=== PATIENT | female | born 1975 | race Caucasian/White ===

== ENCOUNTER 2020-06-24 11:46 | Outpatient (REF) | payer OTHER, SELFPAY ==
--- NOTE | 2020-06-24 | US_ITS ---
EXAMINATION: US PELVIS ULTRASOUND CLINICAL INFORMATION: Dysmenorrhea. Age 44. LMP 06/10/2020. COMPARISON: None TECHNIQUE: Ultrasound of the pelvis is performed using both transabdominal and transvaginal transducers along with color Doppler. Transvaginal imaging is performed due to inadequate visualization transabdominally. FINDINGS: Uterus: The uterus is anteverted and retroflexed and measures 10.2 x 5.1 x 7.5 cm. The double wall endometrial thickness is normal at 3 mm. The uterus is smooth in contour and has normal myometrial echogenicity. No visible fibroid. Adnexa: Both ovaries are visualized. There is normal color flow to the adnexa. There is no ovarian torsion. There is no pelvic ascites or fluid collection. Right ovary measures 2.0 x 1.8 x 1.2 cm. Volume under 3 mL. Left ovary measures 3.5 x 1.6 x 2.0 cm. There is a dominant follicle within the left ovary measuring 1.9 x 1.5 x 1.0 cm. IMPRESSION: 1. Uterus: Normal in size. No visible fibroid. 2. Adnexa: Dominant follicle on left 1.9 x 1.5 x 1.0 cm. No ascites.
== END 2020-06-24 11:47 | disposition home or self-care (01) ==
LOC: HO.US 11:46
PROVIDERS: PCP Internal Medicine Geriatric Medicine; Visit Provider Advanced Practice Midwife
DX: N94.6 Dysmenorrhea, unspecified (principal)
CPT/HCPCS: 76830; 76856

== ENCOUNTER → 2020-07-12 12:06 | Outpatient (BNVA) | payer OTHER, SELFPAY | PROVIDERS: PCP Internal Medicine Geriatric Medicine; Referring Provider Internal Medicine Geriatric Medicine; Visit Provider Physician Assistant | DX: K62.5 Hemorrhage of anus and rectum (principal) | CPT/HCPCS: 99212 ==

== ENCOUNTER 2020-07-22 14:28 | Emergency (ER) | payer OTHER, SELFPAY ==
[2020-07-22 14:35] VITALS: BP 133/96; PULSE 96; RESP 16; TEMP 37.5; O2SAT 98; BMI 35.2
--- NOTE | 2020-07-22 14:42 | ED_ITS ---
HPI - URI/Sore Throat General Chief Complaint: Upper Respiratory Symptoms Stated Complaint: FLU SYMPTOMS,COUGH,SOB,FEVER,BODYACHES,? COVID Time Seen by Provider: 07/22/20 14:39 History of Present Illness HPI Narrative: Patient complains of fever measured up to 102, body aches, cough, shortness of breath for past 3 days The patient went to an urgent care for a COVID test and was found to have an O2 sat of 93 and was transported by ambulance to the hospital On arrival here she was found to have normal vital signs include including a normal oxygen saturation Related Data Previous Rx's Medication Instructions Recorded miralax See Rx Instructions PO ONCE #238 g 07/12/20 acetaminophen [Tylenol] 650 mg PO Q6H PRN #20 cap 07/22/20 albuterol sulfate 2 puff INHALATION QID PRN #6.7 g 07/22/20 Allergies Allergy/AdvReac Type Severity Reaction Status Date / Time No Known Allergies Allergy Verified 07/22/20 14:55 Review of Systems Review of Systems: Review of systems is positive for cough fever shortness of breath The patient has no chest pain no dizziness no weakness No headache and no stiff neck No abdominal pain nausea or vomiting No rash No weakness no confusion Yes all other systems are reviewed and are negative [facility] Past Medical History Attestation statement: The following information was validated with the patient. [facility] Narrative: No relevant medical history, no alcohol no drugs Source: nursing notes reviewed Medical History (Updated 07/22/20 @ 17:49 by JUAN De La Cruz) Menorrhagia Rectal bleeding Surgical History (Updated 07/12/20 @ 10:12 by Nohemi Criag PA-C) H/O breast augmentation Family History Family History (Updated 07/12/20 @ 10:13 by Nohemi Craig PA-C) Maternal Grandfather Colon cancer Social History Social History Alcohol intake: never Smoking Status: Never smoker Use of substances other than those prescribed or required for medical reasons: No Advance Directives: No Advance Directives Information Provided: Yes Physical Exam Vital Signs: Vital Signs: Last Vital Signs Temp 99.5 F 07/22/20 15:57 Pulse 75 07/22/20 15:57 Resp 16 07/22/20 15:57 BP 128/86 07/22/20 15:57 Pulse Ox 99 07/22/20 15:57 Body Mass Index 35.2 General appearance no acute distress, no respiratory distress, A&O x3, ambulatory Pharynx is clear and well hydrated Eyes no redness no discharge The neck is supple The chest was clear with slightly diminished bilateral symmetrical breath sounds and good air entry The heart no murmur The abdomen soft nontender Extremities full range of motion x4, no swelling, no calf tenderness or leg swelling for Skin no rash Neuro A&O x3, no weakness, gait is normal, speech is normal, cerebellar is normal Course Course Course Narrative: Because of the stated history of a low oxygen saturation at the urgent care her oxygen saturation was checked multiple times including with ambulation and exertion and remain 97-100 however because she has very thick nail Citizen Of [place] there were times when the Sensor lost its proper placement and the numbers would drop way down but when the sense he was put in an appropriate spot they immediately returned to 97-100 O2 saturation remained normal throughout the ER visit as well as a respiratory rate of 16 which did decrease with mild exertion when she walked, but oxygen saturation never dropped Patient remains comfortable at rest and ambulated easily on discharge Chest x-ray was normal and EKG was a normal sinus rhythm with a rate of 70 with normal DE interval, no acute ST changes, normal QT Discharge Plan Discharge Clinical Impression: Acute viral syndrome Patient Disposition: Home, Self-Care Additional Instructions: Chest x-ray and EKG were normal Your vital signs were stable The albuterol inhaler might of been helpful so I wrote a prescription for that Return to ER any time for worsening difficulty breathing, feeling faint any worse condition or any concerns COVID test results will be back in 1-3 days, but your symptoms are very concerning for COVID infection so wear mask and keep distance as best possible from family members COVID testing can miss many cases so if cough and fever continue assume you have COVID even if the test is negative Prescriptions: New albuterol sulfate 90 mcg/actuation HFA aerosol inhaler 2 puff inhalation QID PRN (Reason: shortness of breath or wheezing) Qty: 6.7 RF: 0 acetaminophen [Tylenol] 325 mg capsule 650 mg PO Q6H PRN (Reason: fever or pain) Qty: 20 RF: 0 No Action miralax See Rx Instructions PO ONCE Qty: 238 RF: 0
--- NOTE | 2020-07-22 15:14 | XR_ITS ---
EXAMINATION: XR CHEST CLINICAL INFORMATION: Cough COMPARISON: None TECHNIQUE: Frontal view of the chest was obtained. FINDINGS: No significant abnormality is noted involving the heart, lungs, mediastinum, bony thorax or soft tissues. XR/XR chest 1V IMPRESSION: Unremarkable examination.
[2020-07-22] MEDS: Albuterol Sulfate 90 MCG 8 GM INHALER 2 PUFF INHALE (15:36)
[2020-07-22 15:46] VITALS: PULSE 79; RESP 18; TEMP 37.5; O2SAT 100
[2020-07-22 15:57] VITALS: BP 128/86; PULSE 75; RESP 16; TEMP 37.5; O2SAT 99
--- NOTE | 2020-07-22 15:58 | ECG_ITS ---
Test Reason : FLU LIKE Blood Pressure : / mmHG Vent. Rate : 070 BPM Atrial Rate : 070 BPM P-R Int : 182 ms QRS Dur : 080 ms QT Int : 376 ms P-R-T Axes : 032 009 018 degrees QTc Int : 406 ms Normal sinus rhythm Normal ECG No previous ECGs available Referred By: Jimmy Schneider Electronically Signed By:JONH LINDO MD
[2020-07-22 18:00] VITALS: BP 131/81; PULSE 88; RESP 18; TEMP 37.3; O2SAT 96
== END 2020-07-22 19:35 | disposition home or self-care (01) ==
PROVIDERS: Physician Assistant Medical; Emergency Provider Emergency Medicine
DX: B34.9 Viral infection, unspecified (principal); Z20.828 Contact with and (suspected) exposure to other viral communicable diseases; Z79.899 Other long term (current) drug therapy
CPT/HCPCS: 71045; 93005; 94640; 99284; U0003

== ENCOUNTER 2020-09-15 10:58 | Day surgery (SDC) | payer OTHER, SELFPAY ==
[2020-09-07 14:29] VITALS: BMI 34.0
--- NOTE | 2020-09-14 08:50 | HO.ANESPROP2 ---
HPI - Anesthesia Eval Consult details Narrative: 44yo F for Colonoscopy [facility] Past Medical History Medical History Arthritis Back pain Lab test positive for detection of COVID-19 virus Menorrhagia Rectal bleeding Family History Family History Maternal Grandfather Colon cancer Surgical History Surgical History H/O breast augmentation Hx of cosmetic plastic surgery Hx of oral surgery Social History Social History Alcohol intake: never Smoking Status: Current some day smoker Tobacco Type: Cigarette Cigarettes Per Day: 3 Years Smoked: 20 Smoked in Last 30 Days: Yes Use of substances other than those prescribed or required for medical reasons: No Advance Directives Information Provided: No Recently lost weight without trying: No Meds Allergies Allergy/AdvReac Type Severity Reaction Status Date / Time No Known Allergies Allergy Verified 09/15/20 11:56 Home Medications Medication Instructions Recorded Confirmed Type multivitamin 1 tab PO DAILY 09/07/20 09/07/20 History Exam Exam Date and Time: September 14, 2020 0850 Height,Weight and Vital Signs: Height 5 ft 1 in Weight 81.647 kg Assessment and Plan Assessment Anesthesia Assessment: Chart Reviewed
[2020-09-15 11:36] LABS: UPreg QC Valid YES; Urine Pregnancy NEGATIVE (NEGATIVE)
--- NOTE | 2020-09-15 11:50 | P.HPSUR_ITS ---
Pre-Procedural Eval Section B Chief Complaint: rectal bleeding Details of Present Illness: maternal grand dad with CRC Relevant Family History (Specify if Yes): Yes Relevant Social History: Tobacco Use Present Medications: see Short Stay Collaborative assessment Medical History: Significant History (Arthritis Back pain Lab test positive for detection of COVID-19 virus Menorrhagia Rectal bleeding) History of Previous Operations: Relevant previous surgery/procedure and date(s) (breast augmentation) Allergies: Allergies Allergy/AdvReac Type Severity Reaction Status Date / Time No Known Allergies Allergy Verified 07/22/20 14:55 Review of Systems Sugical H&P ROS: Negative: Constitution, Cardiovascular, Respiratory, Neurological, Psychiatric, Hem-Onc, Allergic/Immunologic, Gastrointestinal, Genitourinary, Musculoskeletal, Integumentary, Endocrine and Ey es/Ears/Nose/Throat Exam Surgical H&P Exam: Normal: HEENT, Normal: Heart, Normal: Lungs, Normal: Extremities, Normal: Abdomen, Normal: Skin and Normal: Neurological Plan Diagnosis/Plan: Unchanged I have reviewed the history and physical and performed a pertinent physical examination on my patient. No changes have occurred unless specified.
[2020-09-15 11:53] VITALS: BP 126/85; PULSE 71; RESP 16; TEMP 36.2; O2SAT 99
--- NOTE | 2020-09-15 11:54 | P.CONAN_ITS ---
[facility] Past Medical History Medical History Arthritis Back pain Lab test positive for detection of COVID-19 virus Menorrhagia Rectal bleeding Family History Family History Maternal Grandfather Colon cancer Surgical History Surgical History H/O breast augmentation Hx of cosmetic plastic surgery Hx of oral surgery Social History Social History Alcohol intake: never Smoking Status: Current some day smoker Tobacco Type: Cigarette Cigarettes Per Day: 3 Years Smoked: 20 Smoked in Last 30 Days: Yes Use of substances other than those prescribed or required for medical reasons: No Advance Directives Information Provided: No Recently lost weight without trying: No Meds Allergies Allergy/AdvReac Type Severity Reaction Status Date / Time No Known Allergies Allergy Verified 09/15/20 11:56 Home Medications Medication Instructions Recorded Confirmed Type multivitamin 1 tab PO DAILY 09/07/20 09/07/20 History Exam Exam Date and Time: September 15, 2020 1154 Height,Weight and Vital Signs: Height 5 ft 1 in Weight 81.647 kg Pertinent Lab Results Pertinent Lab Results: Laboratory Tests 09/15/20 11:13 Urine Test NEGATIVE Airway Mallampati Class: II TM Dist: >3cm Neck ROM: Full Loose/Missing/Broken Teeth: No Heart: RRR Lungs: CTA Assessment and Plan Assessment Anesthesia Assessment: Anesthesia Plan Discussed and Chart Reviewed Final Anesthetic Review NPO: Yes ASA Class: II Final Preanesthetic Review: Meds/Allgs Chart Reviewed, Consent Obtained/Reviewed and Anes Risks/Benef Reviewed Patient Risk: Low Procedure Risk: Low Anesthetic Plan Anesthetic Plan: MAC: Disposition: Standard PACU
[2020-09-15] MEDS: Lactated Ringers 1,000 ML 100 ML IVCONT (12:00)
--- NOTE | 2020-09-15 12:31 | PM.OP ---
Brief Operative Note Date of Service: 09/15/20 Pre-op diagnosis: rectal bleeding Post-op diagnosis: same Procedure: Operative Information Procedure Description: Colonoscopy COLONOSCOPY Instrument: Olympus variable stiffness pediatric scope 190L Colonoscopy Monitoring: Vital signs and clinical assessment, continuous EKG monitoring, Pulse oximetry, Carbon Dioxide monitoring and blood pressure monitoring were done throughout the procedure. Colon withdrawal time was 12 minutes. Procedure: The patient was placed in the left lateral decubitis position and pre-procedure medications were administered. After a digital rectal examination of the ano-rectum, the video colonoscope was inserted into the rectum and advanced through the colon to the cecum/TI. The colonoscope was slowly withdrawn in a retrograde panoramic fashion and the colon mucosa was carefully examined including a retroflexed view of the rectum. Findings and interventions are described below. Procedure Difficulty: easy Findings: Terminal Ileum-normal Cecum:normal Ascending Colon: 6-9 mm sessile polyp removed with biopsy forceps Transverse Colon -normal Descending Colon:normal Sigmoid Colon: normal Rectum: Retroflexion with small, slightly inflammed, internal hemorrhoids, grade I Anorectum - normal Colon preparation: [place] Bowel Preparation Scale Right colon; 2 Transverse colon: 3 Left colon; 2 (0 = Unprepared colon segment with mucosa not seen due to solid stool that cannot be cleared. 1 = Portion of mucosa of the colon segment seen, but other areas of the colon segment not well seen due to staining, residual stool and/or opaque liquid. 2 = Minor amount of residual staining, small fragments of stool and/or opaque liquid, but mucosa of colon segment seen well. 3 = Entire mucosa of colon segment seen well with no residual staining, small fragments of stool or opaque liquid) Impression and Post Procedure Diagnosis: internal hemorrhoids polyp Plan: Bleeding is likely from internal hemorrhoids High fiber diet leaflet Avoid straining at stool, epsom salts and sitz bath, anusol supps or cream Repeat Colonoscopy in 5-7 years or earlier if clinically indicated Above findings were reviewed with the patient and relevant handouts were provided if indicated. Surgeon: Carolyn Lopez MD Anesthesia: MAC Estimated blood loss (mL): 0 Condition: stable Disposition: PACU
[2020-09-15 12:35] VITALS: BP 100/62; PULSE 70; RESP 16; TEMP 36.1; O2SAT 98
[2020-09-15 12:50] VITALS: BP 118/72; PULSE 64; RESP 18; O2SAT 100
[2020-09-15] MEDS: ondansetron HCL 4 MG/2 ML VIAL IVPUSH (12:58)
[2020-09-15 13:05] VITALS: BP 122/68; PULSE 55; RESP 18; O2SAT 100
[2020-09-15 13:20] VITALS: BP 120/81; PULSE 67; RESP 18; TEMP 36.9; O2SAT 100
--- NOTE | 2020-09-15 14:08 | HO.POSTANES ---
Post Anesthesia Evaluation Post Anesthesia Evaluation Vital Signs: Vital Signs Temp Pulse Resp BP Pulse Ox 09/15/20 13:20 98.4 F 67 18 120/81 100 09/15/20 13:05 55 18 122/68 100 09/15/20 12:50 64 18 118/72 100 09/15/20 12:35 97.0 F 70 16 100/62 98 09/15/20 11:53 97.2 F 71 16 126/85 99 Anesthesia: General (tiva) Mental Status: Awake Pain Control: Satisfactory Nausea/Vomiting: None Hydration: Adequate Anesthesia-Related Issues: No Anes. Related Issues
--- NOTE | 2020-09-15 15:16 | PC.NURSE ---
Discharge teaching completed by Xiomy Manley RN.
== END 2020-09-15 15:17 | disposition home or self-care (01) ==
PROVIDERS: Nurse Practitioner; PCP Internal Medicine Geriatric Medicine; Visit Provider Internal Medicine Gastroenterology
PROC: 0DJD8ZZ Inspection of Lower Intestinal Tract, Via Natural or Artificial Opening Endoscopic (ICD-10-PCS; CPT 45378; principal; 2020-09-15 12:20)
DX: K62.5 Hemorrhage of anus and rectum (principal); D12.2 Benign neoplasm of ascending colon; K64.0 First degree hemorrhoids; Z86.16 Personal history of COVID-19; F17.210 Nicotine dependence, cigarettes, uncomplicated
CPT/HCPCS: 45380; 81025; 88305; J2405

== ENCOUNTER 2020-09-28 12:51 | Outpatient (REF) | payer OTHER, SELFPAY ==
--- NOTE | 2020-09-28 12:58 | XR_ITS ---
EXAMINATION: XR HAND, BILATERAL CLINICAL INFORMATION: Pain. COMPARISON: None TECHNIQUE: Bilateral hands each 3 views. FINDINGS: Bilateral hands: Normal bone mineralization. No fracture or dislocation. No significant joint space narrowing or marginal osteophytes. Bilateral ulnar negative variance. No osseous erosion. No abnormal soft tissue calcification. XR/XR hand RT 2V IMPRESSION: No evidence of acute osseous abnormality.
--- NOTE | 2020-09-28 12:58 | XR_ITS ---
EXAMINATION: XR HAND, BILATERAL CLINICAL INFORMATION: Pain. COMPARISON: None TECHNIQUE: Bilateral hands each 3 views. FINDINGS: Bilateral hands: Normal bone mineralization. No fracture or dislocation. No significant joint space narrowing or marginal osteophytes. Bilateral ulnar negative variance. No osseous erosion. No abnormal soft tissue calcification. XR/XR hand LT 2V IMPRESSION: No evidence of acute osseous abnormality.
== END 2020-09-28 12:52 | disposition home or self-care (01) ==
LOC: HO.XRAY 12:51
PROVIDERS: PCP Internal Medicine Geriatric Medicine; Visit Provider Internal Medicine Geriatric Medicine
DX: M79.641 Pain in right hand (principal); M79.642 Pain in left hand
CPT/HCPCS: 73120

== ENCOUNTER → 2020-09-29 11:59 | Outpatient (BNVA) | payer OTHER, SELFPAY | PROVIDERS: PCP Internal Medicine Geriatric Medicine; Visit Provider Physician Assistant ==

== ENCOUNTER 2021-03-09 09:06 | Outpatient (REF) | payer OTHER, SELFPAY ==
[2021-03-09 11:17] LABS: MANUAL DIFF FLAG NO
[2021-03-09 11:45] LABS: Basophils Absolute Auto 0.1 X10*3/uL (0.0-0.2); Basophils Percent Auto 0.7 % (0-2); Eosinophils Absolute Auto 0.2 X10*3/uL (0.0-0.4); Eosinophils Percent Auto 2.6 % (0-4); Hematocrit 37.2 % (37-47); Hemoglobin 11.3 g/dl (12.0-16.0); Imm Gran Abs Auto 0.04 X10*3/uL (0.00-0.03); Imm Gran Pct Auto 0.4 % (0.0-0.4); Lymphocytes Absolute Auto 2.7 X10*3/uL (1.2-4.9); Lymphocytes Percent Auto 29.3 % (20-40); Mean Corpuscular HGB Conc 30.4 g/dl (31.0-35.0); Mean Corpuscular Hemoglobin 27.1 pg (27.0-33.0); Mean Corpuscular Volume 89.2 fL (80-98); Mean Platelet Volume 11.8 fL (9.4-12.3); Monocytes Absolute Auto 0.4 X10*3/uL (0.1-1.2); Monocytes Percent Auto 4.5 % (2-11); Neutrophils Absolute Auto 5.7 X10*3/uL (2.0-8.3); Neutrophils Percent Auto 62.5 % (45-73); Platelet Count 333 X10*3/uL (160-400); Red Blood Count 4.17 X10*6/uL (4.20-5.50); Red Cell Distribution Width 14.7 % (11.0-16.0); White Blood Count 9.1 X10*3/uL (4.8-10.8)
[2021-03-09 12:10] LABS: Ferritin 50 ng/mL (10-250)
[2021-03-09 12:13] LABS: Alanine Aminotransferase 13 U/L (0-31); Albumin Level 4.3 g/dL (3.5-5.0); Alkaline Phosphatase 98 U/L (39-117); Anion Gap 14 (12-20); Aspartate Amino Transferase 12 U/L (5-31); Blood Urea Nitrogen 12 mg/dL (9-16); C Reactive Protein 2.12 mg/dL (< or = 0.50); Calcium 9.9 mg/dL (8.4-10.2); Carbon Dioxide 24 mmol/L (22-29); Chloride 108 mmol/L (96-108); Estimated Glomerular Filt Rate > 60; Glucose Random 97 mg/dL (60-115); Potassium 4.6 mmol/L (3.3-5.1); Sodium 141 mmol/L (135-145)
[2021-03-09 12:45] LABS: Erythrocyte Sedimentation Rate 80 MM/HR (0-20)
[2021-03-09 17:45] LABS: Bilirubin Total 0.3 mg/dL (0.0-1.0)
[2021-03-10 08:41] LABS: Lyme Abs Screen <0.90 index
[2021-03-11 14:51] LABS: Cyclic Citrullinated Peptide <16 UNITS
== END 2021-03-09 09:07 | disposition home or self-care (01) ==
LOC: HO.LAB 09:06
PROVIDERS: Physician Assistant; PCP Internal Medicine Geriatric Medicine; Visit Provider Student in an Organized Health Care Education/Training Program
DX: M79.641 Pain in right hand (principal); M79.642 Pain in left hand; K62.5 Hemorrhage of anus and rectum
CPT/HCPCS: 36415; 80053; 82728; 85025; 85652; 86140; 86200; 86617; 86618; 99202

== ENCOUNTER → 2021-04-01 10:53 | Outpatient (BNVA) | payer OTHER, SELFPAY | PROVIDERS: PCP Internal Medicine Geriatric Medicine; Visit Provider Student in an Organized Health Care Education/Training Program | DX: M79.641 Pain in right hand (principal); M79.642 Pain in left hand | CPT/HCPCS: 99212 ==

== ENCOUNTER 2021-04-12 12:23 | Outpatient (REF) | payer OTHER, SELFPAY ==
[2021-04-12 12:53] LABS: MANUAL DIFF FLAG NO
[2021-04-12 12:59] LABS: Basophils Absolute Auto 0.1 X10*3/uL (0.0-0.2); Basophils Percent Auto 0.6 % (0-2); Eosinophils Absolute Auto 0.3 X10*3/uL (0.0-0.4); Hematocrit 35.2 % (37-47); Imm Gran Abs Auto 0.03 X10*3/uL (0.00-0.03); Imm Gran Pct Auto 0.3 % (0.0-0.4); Lymphocytes Absolute Auto 2.8 X10*3/uL (1.2-4.9); Lymphocytes Percent Auto 29.5 % (20-40); Mean Corpuscular HGB Conc 31.3 g/dl (31.0-35.0); Mean Corpuscular Hemoglobin 27.2 pg (27.0-33.0); Mean Corpuscular Volume 87.1 fL (80-98); Mean Platelet Volume 11.7 fL (9.4-12.3); Monocytes Absolute Auto 0.6 X10*3/uL (0.1-1.2); Monocytes Percent Auto 6.2 % (2-11); Neutrophils Absolute Auto 5.6 X10*3/uL (2.0-8.3); Neutrophils Percent Auto 60.4 % (45-73); Platelet Count 285 X10*3/uL (160-400); Red Blood Count 4.04 X10*6/uL (4.20-5.50); Red Cell Distribution Width 14.6 % (11.0-16.0); White Blood Count 9.3 X10*3/uL (4.8-10.8)
== END 2021-04-12 12:24 | disposition home or self-care (01) ==
LOC: HO.LAB 12:23
PROVIDERS: Visit Provider Physician Assistant
DX: K62.5 Hemorrhage of anus and rectum (principal)
CPT/HCPCS: 36415; 85025

== ENCOUNTER 2021-04-18 11:22 | Outpatient (REF) | payer OTHER, SELFPAY ==
--- NOTE | ~2021-04-18 | XR_ITS ---
EXAMINATION: XR SHOULDER, LEFT XR THORACIC SPINE XR SOFT TISSUE NECK XR CERVICAL SPINE CLINICAL INDICATION: Neuralgia. COMPARISON: None. TECHNIQUE: 2 views of the soft tissue neck. 5 views cervical spine including oblique imaging. 3 views left shoulder. 2 views thoracic spine. FINDINGS: SOFT TISSUE NECK: Two-view soft tissue neck demonstrates straightening of the normal lordosis in the cervical spine. No suspicious radiopaque foreign body. The glottis is not well visualized. Area of the pharynx is felt to be unremarkable on this plain film study. There is no narrowing of the trachea noted. No soft tissue suspicious calcification The prevertebral soft tissues are within normal limits. CERVICAL SPINE: 5 views of the cervical spine including oblique imaging. Again straightening of the normal lordosis is noted. There is degenerative lipping most noted at C5-C6 greater than C3-C4 and C4-C5. This extends posterior. The oblique imaging is demonstrating mild neural foraminal encroachment at C5-C6 on the left and right. There is no compression injury. Anterior spurring at C3-4 C4-5 and C5-C6 is also noted LEFT SHOULDER: 3 views of the left shoulder do not demonstrate evidence for an acute fracture or dislocation. Mild degenerative changes in the AC joint and mild acromial spurring. Mild irregularity at the insertion of the superior rotator cuff. The glenohumeral articulation is within normal limits. THORACIC SPINE: 2 views of the thoracic spine demonstrate mild scoliosis convex right apex at T6. There is some loss of disc height at multiple levels consistent with mild degeneration. No listhesis or compression injury. XR/XR cervical spine min 6V IMPRESSION: Multiple studies as described above. Areas of degenerative change. [id number]-yz-[id number] in the cervical spine most noted at C5-C6. There is no listhesis or compression injury. Mild degeneration in the thoracic spine. Mild degeneration of the left shoulder.
--- NOTE | ~2021-04-18 | XR_ITS ---
EXAMINATION: XR SHOULDER, LEFT XR THORACIC SPINE XR SOFT TISSUE NECK XR CERVICAL SPINE CLINICAL INDICATION: Neuralgia. COMPARISON: None. TECHNIQUE: 2 views of the soft tissue neck. 5 views cervical spine including oblique imaging. 3 views left shoulder. 2 views thoracic spine. FINDINGS: SOFT TISSUE NECK: Two-view soft tissue neck demonstrates straightening of the normal lordosis in the cervical spine. No suspicious radiopaque foreign body. The glottis is not well visualized. Area of the pharynx is felt to be unremarkable on this plain film study. There is no narrowing of the trachea noted. No soft tissue suspicious calcification The prevertebral soft tissues are within normal limits. CERVICAL SPINE: 5 views of the cervical spine including oblique imaging. Again straightening of the normal lordosis is noted. There is degenerative lipping most noted at C5-C6 greater than C3-C4 and C4-C5. This extends posterior. The oblique imaging is demonstrating mild neural foraminal encroachment at C5-C6 on the left and right. There is no compression injury. Anterior spurring at C3-4 C4-5 and C5-C6 is also noted LEFT SHOULDER: 3 views of the left shoulder do not demonstrate evidence for an acute fracture or dislocation. Mild degenerative changes in the AC joint and mild acromial spurring. Mild irregularity at the insertion of the superior rotator cuff. The glenohumeral articulation is within normal limits. THORACIC SPINE: 2 views of the thoracic spine demonstrate mild scoliosis convex right apex at T6. There is some loss of disc height at multiple levels consistent with mild degeneration. No listhesis or compression injury. XR/XR thoracic spine 3V IMPRESSION: Multiple studies as described above. Areas of degenerative change. Wiho-te-joeenrfo in the cervical spine most noted at C5-C6. There is no listhesis or compression injury. Mild degeneration in the thoracic spine. Mild degeneration of the left shoulder.
--- NOTE | ~2021-04-18 | XR_ITS ---
EXAMINATION: XR SHOULDER, LEFT XR THORACIC SPINE XR SOFT TISSUE NECK XR CERVICAL SPINE CLINICAL INDICATION: Neuralgia. COMPARISON: None. TECHNIQUE: 2 views of the soft tissue neck. 5 views cervical spine including oblique imaging. 3 views left shoulder. 2 views thoracic spine. FINDINGS: SOFT TISSUE NECK: Two-view soft tissue neck demonstrates straightening of the normal lordosis in the cervical spine. No suspicious radiopaque foreign body. The glottis is not well visualized. Area of the pharynx is felt to be unremarkable on this plain film study. There is no narrowing of the trachea noted. No soft tissue suspicious calcification The prevertebral soft tissues are within normal limits. CERVICAL SPINE: 5 views of the cervical spine including oblique imaging. Again straightening of the normal lordosis is noted. There is degenerative lipping most noted at C5-C6 greater than C3-C4 and C4-C5. This extends posterior. The oblique imaging is demonstrating mild neural foraminal encroachment at C5-C6 on the left and right. There is no compression injury. Anterior spurring at C3-4 C4-5 and C5-C6 is also noted LEFT SHOULDER: 3 views of the left shoulder do not demonstrate evidence for an acute fracture or dislocation. Mild degenerative changes in the AC joint and mild acromial spurring. Mild irregularity at the insertion of the superior rotator cuff. The glenohumeral articulation is within normal limits. THORACIC SPINE: 2 views of the thoracic spine demonstrate mild scoliosis convex right apex at T6. There is some loss of disc height at multiple levels consistent with mild degeneration. No listhesis or compression injury. XR/XR shoulder LT min 2V IMPRESSION: Multiple studies as described above. Areas of degenerative change. Ylkd-wy-uchdmywc in the cervical spine most noted at C5-C6. There is no listhesis or compression injury. Mild degeneration in the thoracic spine. Mild degeneration of the left shoulder.
== END 2021-04-18 11:23 | disposition home or self-care (01) ==
LOC: HO.XRAY 11:22
PROVIDERS: Absent Provider Internal Medicine Geriatric Medicine; PCP Internal Medicine Geriatric Medicine; Visit Provider Registered Nurse
DX: M54.2 Cervicalgia (principal); M54.6 Pain in thoracic spine; M79.2 Neuralgia and neuritis, unspecified
CPT/HCPCS: 70360; 72052; 72072; 73030

== ENCOUNTER 2021-05-09 16:08 | Outpatient (REF) | payer OTHER, SELFPAY ==
--- NOTE | ~2021-05-09 | MR_ITS ---
EXAMINATION: MR HAND WITHOUT AND WITH CONTRAST, RIGHT CLINICAL INFORMATION: Right hand pain and swelling. Inflammation, stiffness, swelling, weakness for one year. COMPARISON: Right hand radiographs dated 09/28/2020. TECHNIQUE: Multisequence MR imaging of the right hand was obtained following the administration of 8.5 mL IV Gadavist contrast on a high-field strength scanner. FINDINGS: BONE: No abnormal marrow signal. No acute fracture or dislocation. No marrow enhancement. Mild articular cartilage loss with small marginal osteophytes at the 1st carpometacarpal joint. MUSCLES/TENDONS: The visualized flexor and extensor tendons are intact. LIGAMENTS: There is mild thickening and edema at the 2nd metacarpophalangeal radial collateral ligament/joint capsule with postcontrast enhancement, which could represent a sprain/partial tear. SOFT TISSUES: No abnormal soft tissue mass or fluid collection. No abnormal soft tissue enhancement. MR/MR hand RT wo/w con IMPRESSION: 1. Thickening and edema at the 2nd metacarpophalangeal radial collateral ligament/joint capsule with postcontrast enhancement. Findings could represent a sprain/partial tear. 2. 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
== END 2021-05-09 16:09 | disposition home or self-care (01) ==
LOC: HO.MRI 16:08
PROVIDERS: PCP Internal Medicine Geriatric Medicine; Visit Provider Student in an Organized Health Care Education/Training Program
DX: M79.641 Pain in right hand (principal); M79.642 Pain in left hand
CPT/HCPCS: 73220; A9585

== ENCOUNTER 2021-05-10 09:05 | Outpatient (REF) | payer OTHER, SELFPAY ==
--- NOTE | 2021-05-12 10:42 | MHC.AU.ANO ---
Adult Audiological Evaluation Date of Visit: 05/10/21 Release Engineer Used: Not Applicable Reason for Appointment: Audiologic evaluation due to hearing difficulty, tinnitus, and unsteadiness which has increased particularly over the past month. Xiang reports she is increasing the television volume and frequently asking others to repeat what was said. She is currently undergoing evaluations to determine the cause of recent hand swelling and pain. Xiang has a history of Lyme Disease and there is a family history of Rheumatoid Arthritis and Lupus Erythemoatosus. Does patient feel they have a hearing loss?: Yes If Yes, Which Ear?: Both Ears Has hearing been tested previously?: No Hearing Handicap Inventory: HHIE SCORE: 34 Based on HHIE score, patient has: Severe perceived hearing handicap Ear History: Recent Ear Drainage: Left Ear Bothersome Tinnitus/Ringing/Noises in Ears: Left ear greater than right Ear used on the phone: Left Ear Blocked/Full Sensation in Ear(s): Both Ears History of occupational noise exposure?: No History: History: No Medical History: History of nasal congestion and allergies, Lyme Disease, Detrusor instability of bladder Medication List: Myrbetriq, and Flonase Otoscopy: Right Ear: Unremarkable Left Ear: Unremarkable Tympanometry: Tympanometry performed due to: To assess integrity of the middle ear system Right Ear: Normal Middle Ear System (Type A) Left Ear: Normal Middle Ear System (Type A) Otoacoustic Emissions Frequency Range Used: 1.6-8 kHz Right Ear Results: Absent Emissions Analysis: Reduced/Absent emissions suggest cochlear dysfunction Left Ear Results: Absent Emissions Analysis: Reduced/Absent emissions suggest cochlear dysfunction Hearing Evaluation: Transducer(s) Used: Insert Earphones Bone Conduction Method: Conventional Audiometry Stimuli Used: Pure Tones Right Ear: Description of Hearing: Mild sloping to moderately-severe sensorineural hearing loss Left Ear: Description of Hearing: Mild sloping to moderately-severe sensorineural hearing loss Speech Recognition Threshold (SRT): Method Used: Monitored Live Voice Stimuli Used: Spondee Words Right Ear: 35 dB HL Left Ear: 35 dB HL Word Discrimination: Method: Recorded Lists Word Lists Used: NU-6 Right Ear: 84% at 75 dB HL Left Ear: 76% at 75 dB HL QuickSIN: Binaural Quick SIN Test: 12 dB SNR Loss suggesting Xiang experiences a moderate degree of difficulty understanding speech with increasing levels of background noise in this controlled test environment. Real world environments, as well as attention and emotional state, are likely to increase speech understanding difficulties Interpretation of Results: Based on today's test results, Xiang experiences speech understanding difficulties, particularly when background noise is present. The increased tinnitus may be related to many factors including the following: the sensorineural hearing loss, chronic pain, and stress. There is a question if Lyme disease and other autoimmune disorders could possibly change the hearing, tinnitus, and unsteady sensation Xiang is experiencing. She is advised to continue to work with her Primary Care Physician regarding all these symptoms. Recommendations: - If cause of the unsteadiness is not determined and/or nasal congestion and allergies are bothersome, may consider medical consultation with an Bender Machine Operator. - Trial with amplification is recommended. - Medical clearance from a physician is required before fitting. - When Xiang is ready to consider hearing aids, she may schedule a Hearing Aid Evaluation. - Audiological re-evaluation in one year. Will send a reminder card. Diagnosis: Primary Diagnosis: H90.3 Bilateral Sensorineural Hearing Loss Secondary Diagnosis: H93.13 Tinnitus, Bilateral Services Performed: Comprehensive Audiological Evaluation (CPT 75041) Diagnostic Otoacoustic Emissions (CPT 77148, 26+TC) Tympanometry (CPT 43864) Signature: Provider: Ralf Cavazos, [facility]
--- NOTE | 2021-05-12 10:48 | MHC.AU.MED ---
Medical Clearance for Hearing Instrumentation Date: 05/12/21 Patient Name: Xiang Harris Date of : 1975 Primary Care Provider: Referring Provider: Jean Dubois MD We have seen your patient on 05/10/21 and have determined that they are a candidate for amplification (See accompanying report). Specifically, they would benefit from: Hearing aid use in both ears There is a statute that addresses Medical Evaluation Requirements prior to fitting a patient with a hearing aid. According to [place] statute 265 CMR:6.03(1), (a) General. Except as provided in 265 CMR 6.03(1)(b), a biochemistry technologist shall not sell a hearing aid unless the prospective user has presented to the biochemistry technologist a written statement signed by a licensed physician that states that the patient's hearing loss has been medically evaluated and the patient may be considered a candidate for a hearing aid. The medical evaluation must have taken place within the preceding six months. Please note: Due to the [place] Statute referenced above, we cannot accept a signature other than that of a licensed physician. [employer] and PA signatures cannot be accepted. I am in agreement with the above recommendation. There is no medical contraindication for hearing instrumentation. Physician Signature Date Physician Name (Printed)
== END 2021-05-10 09:06 | disposition home or self-care (01) ==
LOC: HO.SH 09:05
PROVIDERS: Visit Provider Internal Medicine Geriatric Medicine
DX: H90.3 Sensorineural hearing loss, bilateral (principal); H93.13 Tinnitus, bilateral
CPT/HCPCS: 92557; 92567; 92588

== ENCOUNTER 2021-05-19 09:02 | Outpatient (REF) | payer SELFPAY ==
--- NOTE | 2021-05-19 10:20 | MHC.AU.HAS ---
Addendum entered and electronically signed by Ralf Cerna CCC-A 05/19/21 11:27: Patient came back in the office an hour after the appointment to ask more questions. She would like to proceed as self-pay instead of applying to [facility]. See new note for full details. Original Note: Hearing Aid Evaluation Date of Visit: 05/19/21 Historical Information: Description of Hearing: Mild to moderately-severe sensorineural hearing loss bilaterally Summary: Patient is interested in amplification. 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 She would like the hearing aids to be as small as possible, and does not want any portion behind her ear. Impressions were taken bilaterally without incident and will be kept in the Hold drawer. Patient's current insurance does not have hearing aid coverage. She was provided with contact information for [facility]. She will update us with how the application process is going. If able to proceed, we will try a pair of Phonak Virto (non-wireless to allow them to be made smaller). If approved by [facility], we will pursue the 70-level. If not approved by [facility], patient will let us know which level she wants. Action Taken/Action Needed: Patient will contact us to update on the [facility] application process. Primary Diagnosis: H90.3 Bilateral Sensorineural Hearing Loss Secondary Diagnosis: H93.13 Tinnitus, Bilateral Signature: Provider: Ralf Cerna CCC-A
--- NOTE | 2021-05-19 11:28 | MHC.AU.HAS ---
Hearing Aid Evaluation Date of Visit: 05/19/21 Historical Information: Description of Hearing: Mild to moderately-severe sensorineural hearing loss bilaterally Current personal amplification information, if applicable: Summary: Patient is interested in amplification. 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 She would like the hearing aids to be as small as possible, and does not want any portion behind her ear. Impressions were taken bilaterally without incident and will be kept in the Hold drawer. Patient's current insurance does not have hearing aid coverage. She was provided with contact information for [facility]. She will update us with how the application process is going. If able to proceed, we will try a pair of Phonak Virto CICs (non-wireless to allow them to be made smaller). If approved by [facility], we will pursue the 70-level. If not approved by [facility], patient will let us know which level she wants. Plan of Care: Patient will contact us to update on the [facility] application process. Edit: Patient came back into the office an hour after her appointment with more questions. She asked if we could talk with her on speakerphone, as he had some questions as well. They inquired about warranty, waterproofing, etc. They would like to proceed with the hearing aids as self-pay, with mid-level technology. Paid $350 deposit. Primary Diagnosis: H90.3 Bilateral Sensorineural Hearing Loss Secondary Diagnosis: H93.13 Tinnitus, Bilateral Signature: Provider: Ralf Cerna, [facility]-A
== END 2021-05-19 09:03 | disposition home or self-care (01) ==
LOC: HO.HAP 09:02
PROVIDERS: Visit Provider Internal Medicine Geriatric Medicine
DX: H90.3 Sensorineural hearing loss, bilateral (principal); H93.13 Tinnitus, bilateral
CPT/HCPCS: 92591

== ENCOUNTER 2021-06-13 08:12 | Outpatient (REF) | payer OTHER, SELFPAY ==
--- NOTE | 2021-06-13 15:30 | MHC.AU.HFA ---
Hearing Instrument Fitting- Adult- Binaural Date of Visit: 06/13/21 Hearing Instruments Dispensed: Right Ear: Receiving Lead: Phonak Model: VIRTO M70-10 NW O Serial Number: [id number] Repair Warranty: 06/24/2024 Loss and Damage Warranty: 06/24/2024 Service Plan: 06/24/2024 Battery Size: 10 Type of Wax Guard: Cerustop Left Ear: Receiving Lead: Phonak Model: VIRTO M70-10 NW O Serial Number: [id number] Repair Warranty: 06/24/2024 Loss and Damage Warranty: 06/24/2024 Service Plan: 06/24/2024 Battery Size: 10 Type of Wax Guard: Cerustop Summary of Fitting: Feedback assurance sourcing manager run. Verifit performed and levels adjusted to better reach targets. Patient felt 100% gain was too loud. Lowered to 80% target. Patient felt her own voice was still too loud/echoing. Increased occlusion compensation to medium. Lowered overall gain an additional few steps until patient felt sound was comfortable. She reports the sound quality is clear. When the hearing aids were taken off, patient noted how everything sounded muffled without them. Patient also noted a significant reduction in tinnitus with the hearing aids on. The program button was deactivated. It can be enabled in the future if programs are needed. Hearing aid care and maintenance were discussed and practiced. Recommendations: A hearing instrument follow-up was scheduled. armored machine operator was not working- will bill balance of $3850. Diagnosis Code(s): Primary Diagnosis: H90.3 Bilateral Sensorineural Hearing Loss Secondary Diagnosis: H93.13 Tinnitus, Bilateral Signature: Provider: Ralf Cerna, [facility]
== END 2021-06-13 08:13 | disposition home or self-care (01) ==
LOC: HO.HAP 08:12
PROVIDERS: Visit Provider Internal Medicine Geriatric Medicine
DX: Z46.1 Encounter for fitting and adjustment of hearing aid (principal); H90.3 Sensorineural hearing loss, bilateral; H93.13 Tinnitus, bilateral
CPT/HCPCS: V5259

== ENCOUNTER 2021-06-27 08:20 | Outpatient (REF) | payer SELFPAY ==
--- NOTE | 2021-06-27 13:49 | MHC.AU.HFU ---
Hearing Instrument Follow-Up- Binaural Date of Visit: 06/27/21 Right Ear: Regional Education Coordinator: Phonak Model: VIRTO M70-10 NW O Serial Number: [id number] Repair Warranty: 06/24/2024 Loss and Damage Warranty: 06/24/2024 Service Plan: 06/24/2024 Battery Size: 10 Type of Wax Guard: Cerustop Dispensed By: [facility] Date of Fittin06/13/2021 Left Ear: Regional Education Coordinator: Phonak Model: VIRTO M70-10 NW O Serial Number: [id number] Repair Warranty: 06/24/2024 Loss and Damage Warranty: 06/24/2024 Service Plan: 06/24/2024 Battery Size: 10 Type of Wax Guard: Cerustop Dispensed By: [facility] Date of Fittin06/13/2021 Follow-Up Summary: Patient reports that the sound from the hearing aids has not been good. She feels everything sounds muffled and her ears feel plugged up. She also frequently felt like the instruments were about to fall out. Discussed options, including trying another electrolysis engineer or reworking the current instruments. Decided to try Jazz. When taking new impressions, the left ear was done first. Patient reported that when the left ear was plugged, she could hear much more clearly out of the right ear. This was noted during the original impressions also. Decided to also try adjustments to the Phonak hearing aids in the meantime. Target gain was raised to 90% and occlusion compensation was reduced to low. Patient still reported a muffled sound sensation. To experiment, the left hearing aid was then muted. Patient reported significant improvement in sound. She said with just the right hearing aid everything sounded comfortable, natural, and clear. It appears that with and without the hearing aids, the left ear seems to be interfering with the patient's hearing/clarity. She performs better when the left ear is blocked or when the right ear is amplified above the left ear. We will still order a right-sided Jazz Evolv 2000 CIC to see if it can be made smaller and to see if the fit feels better. In the meantime, patient will use just the right Phonak hearing aid to see if she prefers it to binaural use at work and home. Recommendations: Recommendations: Patient will be contacted when materials have arrived. Diagnosis Code(s): Primary Diagnosis: H90.3 Bilateral Sensorineural Hearing Loss Secondary Diagnosis: H93.13 Tinnitus, Bilateral Signature: Provider: Ralf Cerna, [facility]
== END 2021-06-27 08:21 | disposition home or self-care (01) ==
LOC: HO.HAP 08:20
PROVIDERS: Visit Provider Internal Medicine Geriatric Medicine
DX: Z13.89 Encounter for screening for other disorder (principal)

== ENCOUNTER 2021-07-04 11:55 | Outpatient (REF) | payer OTHER, SELFPAY ==
[2021-07-05 15:16] LABS: IgA 440 mg/dL (47-310); IgG 1528 mg/dL (600-1640); IgM 137 mg/dL (50-300)
== END 2021-07-04 11:56 | disposition home or self-care (01) ==
LOC: HO.LAB 11:55
PROVIDERS: PCP Internal Medicine Geriatric Medicine; Visit Provider Internal Medicine
DX: R77.8 Other specified abnormalities of plasma proteins (principal)
CPT/HCPCS: 36415; 82784; 86334

== ENCOUNTER 2021-07-11 08:55 | Outpatient (REF) | payer SELFPAY | END 2021-07-11 08:56 | disposition home or self-care (01) | LOC: HO.HAP 08:55 | PROVIDERS: Visit Provider Internal Medicine Geriatric Medicine | DX: Z13.89 Encounter for screening for other disorder (principal) ==

== ENCOUNTER 2021-07-25 12:18 | Outpatient (REF) | payer SELFPAY ==
--- NOTE | 2021-07-25 16:06 | MHC.AU.HFU ---
Hearing Instrument Follow-Up- Binaural Date of Visit: 07/25/21 Right Ear: Client Support Analyst: Phonak Model: VIRTO M70-10 NW O Serial Number: [id number] Repair Warranty: 06/24/2024 Loss and Damage Warranty: 06/24/2024 Service Plan: 06/24/2024 Battery Size: 10 Type of Wax Guard: Cerustop Dispensed By: [facility] Date of Fittin06/13/2021 Left Ear: Client Support Analyst: Phonak Model: VIRTO M70-10 NW O Serial Number: [id number] Repair Warranty: 06/24/2024 Loss and Damage Warranty: 06/24/2024 Service Plan: 06/24/2024 Battery Size: 10 Type of Wax Guard: Cerustop Dispensed By: [facility] Date of Fittin06/13/2021 Follow-Up Summary: Hearing aid follow-up. She states that with both the pair of Phonak aids and the right Jazz aid, she hasn't been hearing well. She states that she can hear sounds, but speech still isn't clear. Increased overall gain on both sets of aids today. Used automatic fine tuning to adjust for speech intelligibility. Reduced low frequency gain as she felt they were too echo-y. She reported improved sound quality. Overall, she feels that the Jazz aid fits better. She would like to try a left Jazz aid too. Ordering the left Jazz aid today. Will have the trial period of the Phonak aids extended. Cut the removal wire off the right Jazz aid today. Will call to schedule when the new left Jazz aid is in. Recommendations: Recommendations: Patient will be contacted when materials have arrived. Signature: Provider: Ralf Garsia, [facility]
== END 2021-07-25 12:19 | disposition home or self-care (01) ==
LOC: HO.HAP 12:18
PROVIDERS: Visit Provider Internal Medicine Geriatric Medicine
DX: Z13.89 Encounter for screening for other disorder (principal)

== ENCOUNTER 2021-08-22 15:00 | Outpatient (REF) | payer OTHER, SELFPAY ==
--- NOTE | ~2021-08-22 | MM_ITS ---
EXAMINATION: MM DIAGNOSTIC DIGITAL BREAST TOMOSYNTHESIS, BILATERAL US DIAGNOSTIC ULTRASOUND BREAST, LEFT CLINICAL INFORMATION: Due for yearly exam. Age 45. Patient complains of persistent diffuse left breast pain and fullness since implant replacement approximately 9 months ago. No erythema. No discharge. No known family history breast cancer. The lifetime risk of breast cancer based on the Tyrer-Cuzick Model is 8%. COMPARISON: None. Prior outside mammography currently unavailable. TECHNIQUE: Digital breast tomosynthesis is performed in both the craniocaudal and mediolateral oblique views along with computer-aided detection (CAD). Synthesized 2D images are generated from the tomosynthesis. Technologist notes difficulty obtaining optimal compression on left due to patient symptoms. Ultrasound left breast is performed 11:00 through 7:00 position using grayscale imaging and color Doppler without and with harmonics. Additional comparison imaging with contralateral right breast also performed. FINDINGS: There are scattered areas of fibroglandular density (ACR BI-RADS breast composition Category b). There are bilateral implants. The right implant is unremarkable. The left implant appears slightly smaller than the right. There is a linear coil/thread-like foreign body at the superior aspect left implant on MLO view of uncertain chronicity and significance. This measures approximately 1.5 x 2.3 cm in overall size. The implant is mildly indented at this location. The bilateral breast parenchyma is unremarkable with no mass or architectural abnormality. There is no skin thickening or coarsening of the Dariel's ligaments. No focal duct ectasia or abnormal calcifications. The axilla are unremarkable. Ultrasound demonstrates 2 tiny incidental cysts upper outer left breast only 0.5 cm. There is no solid mass or architectural abnormality. No focal duct ectasia. No skin thickening or edema tracking in soft tissue planes. No hyperemia on color Doppler. The coil/thread-like foreign body noted on mammography is not visualized by ultrasound. No visible seroma. Results are discussed with the patient at time of visit. Patient has signed release to obtain prior mammography performed prior to most recent implant replacement. She has an upcoming appointment in September with her plastic surgeon. MM/MM tomosynthesis diag imp BI IMPRESSION: 1. Left: No mammographic or ultrasound evidence of malignancy or focal inflammatory changes. Question foreign body overlying superior aspect left implant, uncertain chronicity. 2. Right: No mammographic evidence of malignancy. ASSESSMENT: BI-RADS 0: Incomplete - Prior outside mammography pending for comparison RECOMMENDATION: 1. Clinical evaluation with her plastic surgeon pending. Patient to keep this appointment. If clinically indicated, further assessment for implant integrity could be performed with breast MRI. 2. Radiology department staff will attempt to retrieve prior outside mammography to allow for comparison in an addendum report. 3. Routine annual mammography screening. This patient's information was entered into a reminder system with a target due date for their next mammogram.
== END 2021-08-22 15:01 | disposition home or self-care (01) ==
LOC: HO.MAMMO 15:00
PROVIDERS: Visit Provider Internal Medicine Geriatric Medicine
DX: N64.4 Mastodynia (principal)
CPT/HCPCS: 76642; 77062; 77066

== ENCOUNTER 2021-09-19 10:24 | Outpatient (REF) | payer SELFPAY ==
--- NOTE | 2021-09-19 13:30 | MHC.AU.HFA ---
Hearing Instrument Fitting- Adult- Binaural Date of Visit: 09/19/21 Hearing Instruments Dispensed: Right Ear: Sheeting Puller: Jazz Model: Evolv AI 1999 CIC NW Serial Number: [id number] Repair Warranty: 08/01/2024 Loss and Damage Warranty: 08/01/2024 Battery Size: 10 Type of Wax Guard: Hear Clear Left Ear: Sheeting Puller: Jazz Model: Evolv AI 1999 CIC NW Serial Number: [id number] Repair Warranty: 08/30/2024 Loss and Damage Warranty: 08/30/2024 Battery Size: 10 Type of Wax Guard: Hear Clear Summary of Fitting: Ms. Harris was seen for fitting of a left Jazz CIC hearing aid today. She returned the Phonak aids that she was originally fit with today. They were returned for credit to [facility] today. She has been happy with the right Jazz CIC, but notes that things aren't always clear. The left aid was programmed to her hearing loss and paired to the right aid. Feedback measures were run. Real-ear verification was performed on both the right and left aids. Made adjustments to better match targets. She reported comfortable fit and sound quality. Reviewed hearing aid care and use, including insertion/removal and wax guard changing. Recommendations: Recommendations: Hearing Instrument maintenance in 6 months, or sooner if needed. Please call our clinic with any questions or concerns. Recommendations (Other): She will be traveling to [place] for ~3 weeks and will call when she returns to schedule a follow-up if needed. Diagnosis Code(s): Primary Diagnosis: H90.3 Bilateral Sensorineural Hearing Loss Secondary Diagnosis: H93.13 Tinnitus, Bilateral Signature: Provider: Ralf Garsia, [facility]
== END 2021-09-19 10:25 | disposition home or self-care (01) ==
LOC: HO.HAP 10:24
PROVIDERS: Visit Provider Internal Medicine Geriatric Medicine
DX: Z13.89 Encounter for screening for other disorder (principal)

== ENCOUNTER 2021-09-21 16:23 | Outpatient (REF) | payer SELFPAY | END 2021-09-21 16:24 | disposition home or self-care (01) | LOC: HO.HAP 16:23 | PROVIDERS: Visit Provider Internal Medicine Geriatric Medicine | DX: Z13.89 Encounter for screening for other disorder (principal) ==

== ENCOUNTER 2021-10-04 11:40 | Outpatient (REF) | payer OTHER, SELFPAY | END 2021-10-04 11:41 | disposition home or self-care (01) | LOC: HO.HAP 11:40 | PROVIDERS: Visit Provider Internal Medicine Geriatric Medicine | DX: Z13.89 Encounter for screening for other disorder (principal) ==

== ENCOUNTER 2021-10-20 11:31 | Outpatient (REF) | payer SELFPAY | END 2021-10-20 11:32 | disposition home or self-care (01) | LOC: HO.HAP 11:31 | PROVIDERS: Visit Provider Internal Medicine Geriatric Medicine | DX: Z13.89 Encounter for screening for other disorder (principal) ==

== ENCOUNTER 2021-10-27 14:48 | Outpatient (REF) | payer SELFPAY ==
--- NOTE | 2021-10-27 16:14 | MHC.AU.HFU ---
Hearing Instrument Follow-Up- Binaural Date of Visit: 10/27/21 Right Ear: Injection Molding Process Technician: Jazz Model: Evolv AI 1999 [facility] NW Serial Number: [id number] Repair Warranty: 08/01/2024 Loss and Damage Warranty: 08/01/2024 Service Plan: 06/24/2024 Battery Size: 10 Type of Wax Guard: Hear Clear Dispensed By: [facility] Date of Fittin06/13/2021 Left Ear: Injection Molding Process Technician: Jazz Model: Evolv AI 1999 [facility] NW Serial Number: [id number] Repair Warranty: 08/30/2024 Loss and Damage Warranty: 08/30/2024 Service Plan: 06/24/2024 Battery Size: 10 Type of Wax Guard: Hear Clear Dispensed By: [facility] Date of Fittin09/19/2021 Follow-Up Summary: Patient was seen for follow-up of Audeo P70-13T demo aids. She states that she is much happier with them than the [facility] hearing aids and would like to proceed with returning the CICs for credit and ordering a pair of RICs. Contacted our [facility] rep Apollo Kay, who approved the return for credit of both aids (right one is out of the return period), ref # [id number]. Ordering a pair of Phonak Audeo P70-13T aids in Black with size 0M receivers. Recommendations: Recommendations: Patient will be contacted when materials have arrived. Diagnosis Code(s): Primary Diagnosis: H90.3 Bilateral Sensorineural Hearing Loss Secondary Diagnosis: H93.13 Tinnitus, Bilateral Signature: Provider: Ralf Garsia, [facility]
== END 2021-10-27 14:49 | disposition home or self-care (01) ==
LOC: HO.HAP 14:48
PROVIDERS: Visit Provider Internal Medicine Geriatric Medicine
DX: Z13.89 Encounter for screening for other disorder (principal)

== ENCOUNTER 2022-02-02 14:21 | Outpatient (REF) | payer SELFPAY | END 2022-02-02 14:22 | disposition home or self-care (01) | LOC: HO.HAP 14:21 | PROVIDERS: Visit Provider Internal Medicine Geriatric Medicine | DX: Z13.89 Encounter for screening for other disorder (principal) ==

== ENCOUNTER 2022-02-23 09:37 | Outpatient (REF) | payer SELFPAY | END 2022-02-23 09:38 | disposition home or self-care (01) | LOC: HO.HAP 09:37 | PROVIDERS: Visit Provider Internal Medicine Geriatric Medicine | DX: Z13.89 Encounter for screening for other disorder (principal) ==

== ENCOUNTER 2022-03-02 08:48 | Outpatient (REF) | payer MEDICAID, SELFPAY | END 2022-03-02 08:49 | disposition home or self-care (01) | LOC: HO.HAP 08:48 | PROVIDERS: Visit Provider Internal Medicine Geriatric Medicine | DX: Z13.89 Encounter for screening for other disorder (principal) ==

== ENCOUNTER 2023-01-01 15:00 | Outpatient (REF) | payer MEDICAID, SELFPAY ==
--- NOTE | ~2023-01-01 | US_ITS ---
EXAMINATION: US RETROPERITONEAL LIMITED (RENAL ONLY) CLINICAL INFORMATION: Pelvic pain, microscopic hematuria, costovertebral tenderness. COMPARISON: CT abdomen and pelvis without contrast 02/16/2022. TECHNIQUE: Real-time imaging of the kidneys. FINDINGS: RIGHT KIDNEY: 11.1 x 5.7 x 5.4 cm (SAG x AP x TRV). The kidney is normal in size, contour, and echogenicity. Renal cortical thickness is normal. No calculi or focal parenchymal lesions. No hydronephrosis. LEFT KIDNEY: 11.3 x 5.4 x 5.0 cm (SAG x AP x TRV). The kidney is normal in size, contour, and echogenicity. Renal cortical thickness is normal. No calculi or focal parenchymal lesions. No hydronephrosis. Partially imaged liver appears echogenic suggestive of hepatic steatosis or underlying liver disease. This could be further characterized with a dedicated right upper quadrant ultrasound if clinically indicated. US/US renal BI IMPRESSION: No hydronephrosis or nephrolithiasis. Partially imaged liver appears echogenic suggestive of hepatic steatosis or underlying liver disease. This could be further characterized with a dedicated right upper quadrant ultrasound if clinically indicated..
== END 2023-01-01 15:01 | disposition home or self-care (01) ==
LOC: HO.US 15:00
PROVIDERS: PCP Internal Medicine Geriatric Medicine; Visit Provider Registered Nurse
DX: R10.2 Pelvic and perineal pain (principal); R31.29 Other microscopic hematuria; M54.9 Dorsalgia, unspecified
CPT/HCPCS: 76775

== ENCOUNTER 2023-03-15 11:02 | Outpatient (REF) | payer MEDICAID, SELFPAY ==
--- NOTE | ~2023-03-15 | US_ITS ---
EXAMINATION: US PELVIS CLINICAL INFORMATION: Irregular menses. LMP 02/22/2023 COMPARISON: 06/24/2020 TECHNIQUE: Ultrasound of the pelvis is performed using both transabdominal and transvaginal transducers along with Doppler. Transvaginal imaging is performed due to inadequate visualization transabdominally. FINDINGS: Uterus: The uterus is retroverted and measures 7.4 x 5.6 x 6.2 cm. Uterine echotexture is heterogeneous. The uterus is globular in configuration. The double wall endometrial thickness is 5 mm. Adnexa: Both ovaries are visualized. There is no pelvic ascites or fluid collection. Right ovary measures 2.1 x 1.8 x 2.1 cm. Left ovary measures 2.2 x 1.2 x 1.4 cm. US/US pelvic and transvaginal IMPRESSION: Globular and heterogeneous uterus. Adenomyosis should be considered.
== END 2023-03-15 11:03 | disposition home or self-care (01) ==
LOC: HO.US 11:02
PROVIDERS: PCP Internal Medicine Geriatric Medicine; Visit Provider Advanced Practice Midwife
DX: N92.0 Excessive and frequent menstruation with regular cycle (principal)
CPT/HCPCS: 76830; 76856

== ENCOUNTER 2023-07-17 15:09 | Outpatient (REF) | payer MEDICAID, SELFPAY ==
[2023-07-17 16:55] LABS: Hematocrit 38.9 % (37.0-47.0); Hemoglobin 12.6 g/dl (12.0-16.0); Mean Corpuscular HGB Conc 32.4 g/dl (31.0-35.0); Mean Corpuscular Hemoglobin 29.3 pg (27.0-33.0); Mean Corpuscular Volume 90.5 fL (80.0-98.0); Mean Platelet Volume 12.1 fL (9.4-12.3); Platelet Count 233 X10*3/uL (160-400); Red Cell Distribution Width 13.4 % (11.0-16.0); White Blood Count 8.5 X10*3/uL (4.8-10.8)
[2023-07-17 18:47] LABS: CT PCR NOT DETECTED (Not Detect.); NG PCR NOT DETECTED (Not Detect.)
[2023-07-18 09:59] LABS: BV Int Neg Control Negative (Negative); BV Int Pos Control Positive (Positive)
== END 2023-07-17 15:10 | disposition home or self-care (01) ==
LOC: HO.LAB 15:09
PROVIDERS: PCP Internal Medicine Geriatric Medicine; Visit Provider Advanced Practice Midwife
DX: N73.9 Female pelvic inflammatory disease, unspecified (principal); N93.9 Abnormal uterine and vaginal bleeding, unspecified; N92.0 Excessive and frequent menstruation with regular cycle; R21 Rash and other nonspecific skin eruption; R32 Unspecified urinary incontinence; N80.03 Adenomyosis of the uterus
CPT/HCPCS: 0353U; 81025; 85027; 87480; 87510; 87660; 96372; 99212; J0696

== ENCOUNTER 2023-07-17 15:48 | Outpatient (REF) | payer MEDICAID, SELFPAY | END 2023-07-17 15:49 | disposition home or self-care (01) | LOC: HO.LNP 15:48 | PROVIDERS: Visit Provider Advanced Practice Midwife | DX: Z13.89 Encounter for screening for other disorder (principal) ==

== ENCOUNTER 2023-07-24 13:40 | Outpatient (AMB) | payer MEDICAID, SELFPAY ==
--- OUTSIDE RECORDS SUMMARY | 2023-07-24 13:41 | XMS_ITS | Continuity of Care Document ---
Author Name Unknown Organization [facility] Luciano baldwinTitan Medicallast [facility] Address [address] [place] [address], 4t [place] [address]- Care Team Providers Care Concert Or Lecture Hall Manager Name Role Phone Tessa Myrick MD Primary Care Physician [facility] [id number] Date(s): 05/24/23 - 06/27/23 [facility]erm[facility] [address] [facility], 4th [place] [address]- Attending Physician: Apoorva Suazo MD Admitting Physician: Apoorva Suazo MD Referring Physician: Tessa Myrick MD Allergies, Adverse Reactions, Alerts No Known Allergies Medications Crutches See Instructions, # 1 units, Maintenance, use as instructed as needed, 05/09/13 12:19:29, Compound Start Date: 05/09/13 Status: Ordered ibuprofen 600 mg oral tablet 1 tablet = 600 mg, By Mouth, 4 times a day, # 120 tablet, 1 Refills, Maintenance, Tablet Start Date: 05/07/13 Status: Ordered ibuprofen 600 mg oral tablet 1 tablet = 600 mg, By Mouth, 4 times a day, PRN for pain, # 30 tablet, 0 Refills, Maintenance, Tablet Start Date: 05/09/13 Status: Ordered mirabegron 25 mg oral tablet, extended release 1 tablet = 25 mg, By Mouth, Daily, # 30 tablet, 11 Refills, Maintenance, 05/31/23 12:47:00 EDT, [facility] - [place], [place] - [phone], Partial fill upon patient request if the prescription is for a schedule II opioid drug., 155, cm, 04/30/23... Start Date: 05/31/23 Status: Ordered Problem List Condition Confirmation Course Effective Dates Status Health St atus Informant Obese class II Confirmed Active Urinary incontinence Confirmed Active Patient Care team information Care Team Personnel Name: Tessa Myrick MD Position: S Physician - Primary Care Member Role: PCP Address: Address: [address] [place] [address]- Care Team Related Persons Name: MICHELLE NEVILLE Address: home [address] [place] [address]
--- OUTSIDE RECORDS SUMMARY | 2023-07-24 13:41 | XMS_ITS | Continuity of Care Document ---
Author Name Unknown Organization [facility] Luciano baldwinRatingBuglast [facility] Address [address] [place] [address], [address]t [place] [address]- Care Team Providers Care Utility Gelatin Maker Name Role Phone Tessa Myrick MD Primary Care Physician [facility] [id number] Date(s): 05/28/23 - 06/27/23 [facility]oni [facility] [address] [facility], [address]th [place], [place] [address] Attending Physician: Valeria Fernandez Admitting Physician: AdmValeria gold Referring Physician: AdmtrValeria Allergies, Adverse Reactions, Alerts No Known Allergies [...] tablet, 11 Refills, Maintenance, 05/31/23 12:47:00 EDT, [facility] - [place], [place] - [phone], Partial fill upon patient request if the prescription is for a schedule II opioid drug., 155, cm, 04/30/23... Start Date: 05/31/23 Status: Ordered Problem List Condition Confirmation Course Effective Dates Status Health St atus Informant Obese class II Confirmed Active Urinary incontinence Confirmed Active Patient Care team information Care Team Personnel Name: Tessa Myrick MD Position: [facility] Physician - Primary Care Member Role: PCP Address: Address: [address] [place] [address]- Care Team Related Persons Name: MICHELLE NEVILLE Address: home [address] [place] [address]
--- OUTSIDE RECORDS SUMMARY | 2023-07-24 13:41 | XMS_ITS | Continuity of Care Document ---
Author Name Unknown Organization [facility] Luciano baldwinCrucelllast [facility] Address [address] [facility], 4t [place] [address]- Care Team Providers Care Energy Analyst Name Role Phone Tessa Myrick MD [id number] Date(s): 05/28/23 - 06/27/23 [facility] Luciano Sumners [facility] [address] [facility], 4th [address] [place], [place] [address] Allergies, Adverse Reactions, Alerts No Known Allergies [...] tablet, 11 Refills, Maintenance, 05/31/23 12:47:00 EDT, [place], [place] - [phone], Partial fill upon patient request if the [...] Role: PCP Address: Address: [address] [place] [address]- Care Team Related Persons Name: MICHELLE NEVILLE Address: home [address] [address]
--- NOTE | 2023-07-24 13:43 | MHC.OFFVIS ---
Intake Vital Signs 07/24/23 13:47 Height 5 ft Weight 190 lb BMI 37.1 BP 120/82 Intake Visit Reasons: follow up Intake Note: Scribed for Jocelyn Prasad CNM by Didier Lucas dental assistant medical assistant, on 07/24/23 at 1:55 PM, EST Patient Transition Specialist: Patient Transition Specialist Present (Emely) Allergies No Known Allergies Allergy (Verified 07/24/23 13:43) HPI HPI Comments History of Present Illness Details This is a premenopausal woman who returns for a follow-up of PID. She says she has been taking her Abx as instructed, but her symptoms are still present. She has started treatment for her yeast infection. She reports still having a rash, which is quite painful for her. She reports having a little bleeding yesterday. She is sexually active with her male partner. She denies using any BC and says she is not concerned about . [facility] Medical History Impaired hearing Arthritis Back pain Lab test positive for detection of COVID-19 virus Menorrhagia Rectal bleeding Surgical History History of colonoscopy Hx of oral surgery Hx of cosmetic plastic surgery H/O breast augmentation Family History Maternal Grandfather Colon cancer Maternal Aunt Ovarian cancer Family/Other Primary bone cancer Maternal Grandmother Throat cancer Stroke Dementia Sister Lupus Anemia Mother Stroke Asthma Dementia Parkinsons disease Social History Alcohol intake: current Alcohol intake frequency: holidays/special occasions only Patient Tobacco Use Status: Current someday Tobacco user Tobacco use type: Cigarette Years Smoked: 20 Substance Use Type: Marijuana Review of Systems Const All systems reviewed & are unremarkable except as noted in HPI and below Physical Exam Vital Signs: Last Vital Signs BP 120/82 07/24/23 13:47 BMI result Body Mass Index 37.1 Const General: cooperative, healthy appearing and no acute distress Orientation/consciousness: patient oriented x3 GI Inspection: Yes normal to inspection Palpation (GI): Soft to palpation and Other GI palpation findings present (Nontender) Rectal Exam - Female: visual inspection normal General: Yes bladder normal to palpation External Female Exam: normal appearance of the urethra, erythema (labia) and other (labia edema) Speculum Exam - Vagina: normal appearance of the vagina, normal palpation and normal vaginal discharge Speculum Exam - Cervix: normal appearance of the cervix, normal palpation and nontender Bimanual exam- vagina & uterus: normal bimanual exam, normal palpation, uterine size normal, bladder normal to palpation, normal palpation, uterine shape normal, No Cervical tenderness present, non-tender and Uterine tenderness Bimanual Exam- Adnexa, other: normal adnexae Neuro General: patient oriented x3 Results AMB Urinalysis, Automated UA Leukoctes 0 Tacos/uL Last Edit by JANELL Alva on 07/24/23 14:06 UA Nitrite Negative Last Edit by JANELL Alva on 07/24/23 14:06 UA Urobilinogen 0 mg/dL Last Edit by JANELL Alva on 07/24/23 14:06 UA Protein 0 mg/dL Last Edit by JANELL Alva on 07/24/23 14:06 UA pH 6.0 Last Edit by JANELL Alva on 07/24/23 14:06 UA Blood 2 Ross/uL Last Edit by JANELL Alva on 07/24/23 14:06 UA Specific Marshall 1.015 Last Edit by JANELL Alva on 07/24/23 14:06 UA Ketone Negative Last Edit by JANELL Alva on 07/24/23 14:06 UA Bilirubin 0 mg/dL Last Edit by Felicitas Pink Salbador on 07/24/23 14:06 UA Glucose 0 mg/dL Last Edit by JANELL Alva on 07/24/23 14:06 Results Reviewed Results Reviewed: Laboratory Last Values Urine pH (Auto) 6.0 07/24/23 14:05 Specific Marshall (Auto) 1.015 07/24/23 14:05 Urine Protein (Auto) 0 mg/dL 07/24/23 14:05 Glucose (UA)(Auto) 0 mg/dL 07/24/23 14:05 Urine Ketones (Auto) Negative 07/24/23 14:05 Urine Blood (Auto) 2 Ross/uL 07/24/23 14:05 Urine Nitrite (Auto) Negative 07/24/23 14:05 Urine Bilirubin (Auto) 0 mg/dL 07/24/23 14:05 Urine Urobilinogen (Auto) 0 mg/dL 07/24/23 14:05 Leukocyte Esterase (Auto) 0 Tacos/uL 07/24/23 14:05 Assessment & Plan Assessment & Plan (1) Pelvic inflammatory disease (PID): Code(s): N73.9 - Female pelvic inflammatory disease, unspecified Plan: BV panel test results discussed today Discussed treatment protocol for PID. She is agreeable to plan.? She zoya continue to take Flagyl and Doxycycline as instructed. Side effects: metallic taste-temporary, will resolve after treatment, may try a mint, lemon drops or gum.? GI upset-take medication with food NO ALCOHOL use during treatment and including up to 48 hours after medication is completed. Avoid vinegar products-salad dressing, and pickles. Instructed to go to ER with any increased pain, fever or flu like sx. Nothing in the vagina until sx resolve. OTC pain medication and/pr heating pad for pain relief, prn. Follow up next week for assessment. (2) Yeast infection involving the vagina and surrounding area: Code(s): B37.31 - Acute candidiasis of vulva and vagina Plan: Continue to use Monistat as instructed Prescribed Lotrizole cream to use. (3) Skin rash in pelvic region: Code(s): R21 - Rash and other nonspecific skin eruption Plan: Vulvar care: clean with water only, no soaps, no shaving. Dry with a cotton towel, air dry if needed. Wear loose cotton clothing. If swollen and uncomfortable externally apply a cool clothe to the area intermittently. Avoid intimacy until symptoms resolve. Apply topical cream externally as directed. (4) Menorrhagia: Code(s): N92.0 - Excessive and frequent menstruation with regular cycle Plan: Ordered CBC to assess for anemia. (5) Incontinence of urine in female: Code(s): R32 - Unspecified urinary incontinence (6) Adenomyosis: Code(s): N80.03 - Adenomyosis of the uterus Orders: Orders AMB Urinalysis Automated Today R10.2 - Pelvic and perineal pain Medications: New clotrimazole-betamethasone 1-0.05 % apply externally a thin coat to the area 1 appl topical BID 45 grams 0RF itching 7 days Coding Level of Care Code Est Pt Level 3 (10144) Diagnoses Pelvic inflammatory disease (PID) N73.9 Yeast infection involving the vagina and surrounding area B37.31 Skin rash in pelvic region R21 Menorrhagia N92.0 Incontinence of urine in female R32 Adenomyosis N80.03
[2023-07-24 13:47] VITALS: BP 120/82; BMI 37.1
== END 2023-07-24 14:26 | disposition home or self-care (01) ==
LOC: HO.HWS 13:40
PROVIDERS: PCP Internal Medicine Geriatric Medicine; Visit Provider Advanced Practice Midwife
DX: N73.9 Female pelvic inflammatory disease, unspecified (principal); B37.31 Acute candidiasis of vulva and vagina; R21 Rash and other nonspecific skin eruption; N92.0 Excessive and frequent menstruation with regular cycle; R32 Unspecified urinary incontinence; N80.03 Adenomyosis of the uterus; R10.2 Pelvic and perineal pain
CPT/HCPCS: 99213

== ENCOUNTER → 2023-07-24 13:40 | Outpatient (BNVA) | payer MEDICAID, SELFPAY | PROVIDERS: PCP Internal Medicine Geriatric Medicine; Visit Provider Advanced Practice Midwife | DX: N73.9 Female pelvic inflammatory disease, unspecified (principal); N92.0 Excessive and frequent menstruation with regular cycle; N80.03 Adenomyosis of the uterus; R21 Rash and other nonspecific skin eruption; R32 Unspecified urinary incontinence; B37.31 Acute candidiasis of vulva and vagina | CPT/HCPCS: 81003; 99212 ==

== ENCOUNTER 2023-07-31 13:15 | Outpatient (AMB) | payer MEDICAID, SELFPAY ==
[2023-07-31 13:44] VITALS: BP 124/76; BMI 37.1
--- NOTE | 2023-07-31 13:44 | A.OFFVIS_ITS ---
Intake Vital Signs 07/31/23 13:44 Height 5 ft Weight 190 lb BMI 37.1 BP 124/76 Intake Visit Reasons: Follow up /30 mins Delicatessen Clerk: Delicatessen Clerk Present (Emely) Allergies No Known Allergies Allergy (Verified 07/31/23 13:44) Is last menstrual period known: Yes HPI HPI Comments History of Present Illness Details Patient presents for follow-up pelvic check for PID. She reports feeling better and at times does still have some ovarian discomfort. Last ultrasound review was from March, revealed possible adenomyosis. Currently not using any control, she reports God has a plan for her. Cycle are usually regular but last up to 10 days. She prefers not to have any hormones. Currently smoking. [facility] Medical History Impaired hearing Arthritis Back pain Lab test positive for detection of COVID-19 virus Menorrhagia Rectal bleeding Surgical History History of colonoscopy Hx of oral surgery Hx of cosmetic plastic surgery H/O breast augmentation Family History Maternal Grandfather Colon cancer Maternal Aunt Ovarian cancer Family/Other Primary bone cancer Maternal Grandmother Throat cancer Stroke Dementia Sister Lupus Anemia Mother Stroke Asthma Dementia Parkinsons disease Alcohol intake: current Alcohol intake frequency: holidays/special occasions only Patient Tobacco Use Status: Current someday Tobacco user Tobacco use type: Cigarette Years Smoked: 20 Substance Use Type: Marijuana Review of Systems Const All systems reviewed & are unremarkable except as noted in HPI and below ENT Reports no additional complaints Neuro Reports no additional complaints Psych Reports no additional complaints Endo Reports no additional complaints Physical Exam Vital Signs: Last Vital Signs BP 124/76 07/31/23 13:44 BMI result Body Mass Index 37.1 Const General: cooperative, healthy appearing and no acute distress Orientation/consciousness: patient oriented x3 GI Inspection: Yes normal to inspection Palpation (GI): Soft to palpation and Other GI palpation findings present (Nontender) Rectal Exam - Female: visual inspection normal General: Yes bladder normal to palpation External Female Exam: normal appearance of the urethra Speculum Exam - Vagina: normal appearance of the vagina, normal palpation and normal vaginal discharge Speculum Exam - Cervix: normal appearance of the cervix and normal palpation Bimanual exam- vagina & uterus: normal bimanual exam, normal palpation, uterine size normal, bladder normal to palpation, normal palpation, uterine shape normal and non-tender Bimanual Exam- Adnexa, other: normal adnexae Neuro General: patient oriented x3 Assessment & Plan Assessment & Plan (1) Pelvic inflammatory disease (PID): Code(s): N73.9 - Female pelvic inflammatory disease, unspecified (2) Abnormal uterine bleeding (AUB): Code(s): N93.9 - Abnormal uterine and vaginal bleeding, unspecified Plan Discussed: Adenomyosis, use of web for pics Workup for AUB including endometrial biopsy risks benefits and the reason for the exam including to rule out atypical cells, hyperplasia, pre in malignant cancer. All questions answered patient is agreeable to return to the office for the EMB. OTC medication use, Ibuprofen 600 mg (3-200mg tablets), with food every 6 hours for the first 1-3days of menses only. BC options with smoking, and ablation treatment. All of her questions and concerns were addressed to the best of my ability and shared decision making. She is agreeable to the plan of care. Coding Level of Care Code Est Pt Level 3 (35708) Diagnoses Pelvic inflammatory disease (PID) N73.9 Abnormal uterine bleeding (AUB) N93.9
== END 2023-07-31 15:37 ==
PROVIDERS: PCP Internal Medicine Geriatric Medicine; Visit Provider Advanced Practice Midwife
DX: N73.9 Female pelvic inflammatory disease, unspecified (principal); N93.9 Abnormal uterine and vaginal bleeding, unspecified
CPT/HCPCS: 99213

== ENCOUNTER → 2023-07-31 13:15 | Outpatient (BNVA) | payer MEDICAID, SELFPAY | PROVIDERS: PCP Internal Medicine Geriatric Medicine; Visit Provider Advanced Practice Midwife | DX: N93.9 Abnormal uterine and vaginal bleeding, unspecified (principal); N73.9 Female pelvic inflammatory disease, unspecified | CPT/HCPCS: 99212 ==

== ENCOUNTER 2023-09-07 11:11 | Outpatient (AMB) | payer MEDICAID, SELFPAY ==
--- OUTSIDE RECORDS SUMMARY | 2023-09-07 11:12 | XMS_ITS | Continuity of Care Document ---
Author Name Unknown Organization [facility] Luciano baldwinBouncefootballlast [facility] Address [address] [place] [address], 4t [place] [address]- Care Team Providers Care Manager Strategic Partnerships Name Role Phone Tessa Myrick MD Primary Care Physician Encounter [facility] [id number] Date(s): 04/30/23 - 08/08/23 [facility] Langhorneloni BermeoBounce[facility] [address] [facility], 4th [place] [address]- Attending Physician: Apoorva Suazo MD Admitting Physician: [...] tablet, 11 Refills, Maintenance, 05/31/23 12:47:00 EDT, [facility] - [place], [place] - [phone], Partial fill upon patient request if the [...] Role: PCP Address: Address: [address] [place] [address]- Care Team Related Persons Name: MICHELLE NEVILLE Address: home [address] [place] [address]
[2023-09-07 11:17] VITALS: BP 122/76; BMI 37.0
--- NOTE | 2023-09-07 11:17 | A.OFFVIS_ITS ---
Intake Vital Signs 09/07/23 11:17 Height 5 ft Weight 189 lb 9.561 oz BMI 37.0 BP 122/76 Intake Visit Reasons: EMB/60 per BM Nurse Plastics Required: No Information Interpreted: non-clinical & clinical Casting Wheel Operator Helper: Casting Wheel Operator Helper Present (Edelmira Dragan MACIEL) Accompanied by: Self / Same As Patient Allergies No Known Allergies Allergy (Verified 09/07/23 11:30) HPI HPI Comments History of Present Illness Details Patient is here for an endometrial biopsy procedure due to prolonged bleeding episodes. She reports she is having a sling procedure next Sunday. [facility] Medical History Impaired hearing Arthritis Back pain Lab test positive for detection of COVID-19 virus Menorrhagia Rectal bleeding Surgical History History of colonoscopy Hx of oral surgery Hx of cosmetic plastic surgery H/O breast augmentation Family History Maternal Grandfather Colon cancer Maternal Aunt Ovarian cancer Family/Other Primary bone cancer Maternal Grandmother Throat cancer Stroke Dementia Sister Lupus Anemia Mother Stroke Asthma Dementia Parkinsons disease Social History Alcohol intake: current Alcohol intake frequency: holidays/special occasions only Patient Tobacco Use Status: Current someday Tobacco user Tobacco use type: Cigarette Years Smoked: 20 Substance Use Type: Marijuana Review of Systems Const All systems reviewed & are unremarkable except as noted in HPI and below Physical Exam Vital Signs: Last Vital Signs BP 122/76 09/07/23 11:17 BMI result Body Mass Index 37.0 Const General: cooperative, healthy appearing and no acute distress Orientation/consciousness: patient oriented x3 GI Inspection: Yes normal to inspection Palpation (GI): Soft to palpation Rectal Exam - Female: visual inspection normal General: Yes bladder normal to palpation External Female Exam: normal appearance of the urethra Speculum Exam - Vagina: normal appearance of the vagina, normal palpation and normal vaginal discharge Speculum Exam - Cervix: normal appearance of the cervix and normal palpation Bimanual exam- vagina & uterus: normal bimanual exam, normal palpation, uterine size normal, bladder normal to palpation, normal palpation, uterine shape normal and non-tender Bimanual Exam- Adnexa, other: normal adnexae Neuro General: patient oriented x3 Office Procedures Endometrial Biopsy Details: The patient is here today for an endometrial biopsy due to AUB to rule out any pathology including atypical, hyperplasia or cancer cells of the uterus. She was counseled regarding anticipatory guidance for the procedure including the risks for pain, infection, bleeding, perforation, potential injury to the tissues may include the cervix, uterus, tubes, bladder and bowels. These injuries may include further treatment and evaluation including surgery, blood transfusions, antibiotics, hospitalizations and anesthesia. Permanent injury and scarring can occur. She was consented for the procedure, and the consent forms were signed. She is agreeable to have the procedure today. All questions were answered. Endometrial Biopsy Procedure: The patient was placed in the dorsal lithotomy position and a sterile speculum inserted. Using aseptic technique for the procedure. The cervix was cleansed with Betadine x 3 swabs. A single toothed tenaculum was placed on the cervix for stabilization and the uterus was sounded to 8 cm with a 4mm pipelle for 2 passes (good sized sample obtained). Minimal bleeding was observed. The tissue sample was placed in formalin in a patient labeled container by staff assisting and sent to the pathology department for processing and interpretation. The patient tolerate the procedure well and was in good condition when leaving the department. Endometrial Biopsy Post Procedure Care: Nothing in the vagina including: tampons, douching or intimacy until all the bleeding has subsided. There may be some post procedure bleeding for several days, this bleeding is usually light and may turn to a light brown or pink color. Mild cramps may occurs. Nothing in the vaginal including: tampons, douching, or intimacy until all the bleeding has subsided. You may take an over the counter mild analgesic such as Tylenol or Advil (if no allergies) per the manufactures recommendation on dosing, frequency, and follow the directions completely. Call the office if any: fever (over 100.4), flu like symptoms, abdominal pain (worse than cramping), foul smelling, infected appearing vaginal discharge, or heavy bleeding. If indicated: Use condoms to prevent and STI's, and only after the bleeding has stopped completely. Return to the office in 2 weeks for results and plan of care. This note is constructed using voice recognition software. While every effort has been made to ensure accuracy, security systems sales representative errors may have been included. [id number] Biopsy Results AMB Test Urine AMB Test Urine Negative Last Edit by Edelmira Archibald CMA on 11:31 Assessment & Plan Assessment & Plan (1) Abnormal uterine bleeding (AUB): Code(s): N93.9 - Abnormal uterine and vaginal bleeding, unspecified Plan: See procedure note. Discussed Mirena IUD, brochure given. All of her questions and concerns were addressed to the best of my ability and shared decision making. She is agreeable to the plan of care. Orders: Orders AMB HCG Urine Test Today Z32.02 - Encounter for test, result negative Surgical Today N93.9 - Abnormal uterine and vaginal bleeding, unspecified Coding Level of Care Code Procedure Only Diagnoses Abnormal uterine bleeding (AUB) N93.9 CPT Codes Endometrial Biopsy - CPT: 84841-Stbiocomxvx Biopsy ([id number])
== END 2023-09-07 12:04 | disposition home or self-care (01) ==
LOC: HO.HWS 11:11
PROVIDERS: PCP Internal Medicine Geriatric Medicine; Visit Provider Advanced Practice Midwife
DX: Z30.430 Encounter for insertion of intrauterine contraceptive device (principal); Z32.02 Encounter for pregnancy test, result negative
CPT/HCPCS: 58100

== ENCOUNTER 2023-09-07 11:11 | Outpatient (REF) | payer MEDICAID, SELFPAY | END 2023-09-07 11:12 | disposition home or self-care (01) | LOC: HO.LNP 11:11 | PROVIDERS: PCP Internal Medicine Geriatric Medicine; Visit Provider Advanced Practice Midwife | DX: N93.9 Abnormal uterine and vaginal bleeding, unspecified (principal); Z32.02 Encounter for pregnancy test, result negative | CPT/HCPCS: 58100; 81025; 88305 ==

== ENCOUNTER 2023-09-18 11:00 | Outpatient (AMB) | payer MEDICAID, SELFPAY ==
[2023-09-18 11:11] VITALS: BP 128/78; BMI 36.3
--- NOTE | 2023-09-18 11:11 | A.OFFVIS_ITS ---
Intake Vital Signs 09/18/23 11:11 Height 5 ft Weight 186 lb BMI 36.3 BP 128/78 Intake Visit Reasons: EMB Results Community Service Aide Required: No Clinical Data Management Director: Clinical Data Management Director Present Allergies No Known Allergies Allergy (Verified 09/18/23 11:13) Is last menstrual period known: Yes Last menstrual period: 09/08/23 HPI HPI Comments History of Present Illness Details Patient is here for endometrial biopsy results, history of abnormal uterine bleeding. [facility] Medical History (Updated 09/18/23 @ 12:05 by Jocelyn Prasad CNM) Impaired hearing Arthritis Back pain Lab test positive for detection of COVID-19 virus Menorrhagia Rectal bleeding Surgical History (Updated 09/18/23 @ 12:01 by Jocelyn Prasad CNM) History of suburethral sling procedure History of colonoscopy Hx of oral surgery Hx of cosmetic plastic surgery H/O breast augmentation Family History Maternal Grandfather Colon cancer Maternal Aunt Ovarian cancer Family/Other Primary bone cancer Maternal Grandmother Throat cancer Stroke Dementia Sister Lupus Anemia Mother Stroke Asthma Dementia Parkinsons disease Social History Alcohol intake: current Alcohol intake frequency: holidays/special occasions only Patient Tobacco Use Status: Current someday Tobacco user Tobacco use type: Cigarette Years Smoked: 20 Substance Use Type: Marijuana Female Reproductive History Menstrual Date of last menstrual period: 09/08/23 control method: none Review of Systems Const All systems reviewed & are unremarkable except as noted in HPI and below Endo Reports no additional complaints Physical Exam Vital Signs: Last Vital Signs BP 128/78 09/18/23 11:11 BMI result Body Mass Index 36.3 Const General: cooperative, healthy appearing and no acute distress Psych Appearance: well kempt Attitude: cooperative Thought process: Normal thought process present Results Reviewed Results Reviewed: of 1 [email or web address]=1&[email or web address]=auto,-15,809 Surgical Pathology [id number] Name: Xiang Harris Age/Sex: 47/F Attending: Jocelyn Prasad CNM : 1975 Submitted by: Jocelyn Prasad CNM Copies to: MR #: [id number] Status: DEP REF Collected: 09/07/23 [facility] Received: 09/07/23 Diagnosis Endometrium, biopsy: Benign disordered proliferative endometrium with focal ectatic vessels and focal stromal collapse; no atypia or carcinoma. Clinical History AUB Microscopic Description Microscopic sections reviewed. Material Received EMB Gross Description Received in formalin labeled ?EMB? are fragments of friable red damico tissue mixed with clotted blood forming an aggregate measuring 2.5 x 1.9 x 0.4 cm in greatest dimension. The spe cimen is wrapped in lens paper and entirely submitted for microscopic examination, multiple pieces in cassette labeled A1 and A2 smc NOTE: Unless otherwise stated, all tissue is formalin-fixed and paraffin- embedded. Some or all of the immunohistochemical tests reported herein may have been developed and their performance characteristics determined by [facility]. They have not been cleared or approved by the U.S. Food and Drug Administration (FDA). However, the FDA has determined that such clearance or approval is not necessary. This laboratory is certified under the Clinical Laboratory Improvement Amendments of 1988 (CLIA) as qualified to perform high complexity clinical laboratory testing. Electronically Signed By: Neris Sandhu 09/11/23 1217 Patient: Xiang Harris Age/Sex: 47/F MR#: [id number] Page 1 of 1 Assessment & Plan Assessment & Plan (1) History of suburethral sling procedure: Code(s): Z98.890 - Other specified postprocedural states (2) Abnormal uterine bleeding (AUB): Code(s): N93.9 - Abnormal uterine and vaginal bleeding, unspecified (3) Encounter to discuss test results: Code(s): Z71.2 - Person consulting for explanation of examination or test findings Plan Discussed: EMB results-negative. History of adenomyosis and prolonged bleeding episodes. Plan is for a Mirena IUD therapeutically. Patient is recovering from sling surgery last Sunday, catheter removed today. Defers an IUD procedure until well healed prefers not to schedule at this point and agrees to call when she is ready to have the IUD inserted. Discussed pre procedure planning with [id number] medication and to have something to eat and drink. All of her questions and concerns were addressed to the best of my ability and shared decision making. She is agreeable to the plan of care. Schedule annual exam for later this year around May. Coding Level of Care Code Est Pt Level 3 (85438) Diagnoses History of suburethral sling procedure Z98.890 Abnormal uterine bleeding (AUB) N93.9 Encounter to discuss test results Z71.2
== END 2023-09-18 12:05 | disposition home or self-care (01) ==
LOC: HO.HWS 11:00
PROVIDERS: PCP Internal Medicine Geriatric Medicine; Visit Provider Advanced Practice Midwife
DX: Z98.890 Other specified postprocedural states (principal); N93.9 Abnormal uterine and vaginal bleeding, unspecified; Z71.2 Person consulting for explanation of examination or test findings
CPT/HCPCS: 99213

== ENCOUNTER → 2023-09-18 11:00 | Outpatient (BNVA) | payer MEDICAID, SELFPAY | PROVIDERS: PCP Internal Medicine Geriatric Medicine; Visit Provider Advanced Practice Midwife | DX: Z71.2 Person consulting for explanation of examination or test findings (principal); N93.9 Abnormal uterine and vaginal bleeding, unspecified; Z98.890 Other specified postprocedural states | CPT/HCPCS: 99212 ==

== ENCOUNTER 2023-10-09 10:14 | Outpatient (REF) | payer MEDICAID, SELFPAY ==
[2023-10-09 12:10] LABS: Anion Gap 11 (12-20); Blood Urea Nitrogen 19 mg/dL (9-16); Calcium 9.7 mg/dL (8.4-10.2); Carbon Dioxide 24 mmol/L (22-29); Chloride 110 mmol/L (96-108); Estimated Glomerular Filt Rate > 60; Glucose Random 90 mg/dL (60-115); Potassium 4.2 mmol/L (3.3-5.1); Sodium 141 mmol/L (135-145)
== END 2023-10-09 10:15 | disposition home or self-care (01) ==
LOC: HO.HHCL 10:14
PROVIDERS: Visit Provider Internal Medicine Geriatric Medicine
DX: I10 Essential (primary) hypertension (principal)
CPT/HCPCS: 36415; 80048

== ENCOUNTER 2024-01-08 10:54 | Outpatient (REF) | payer MEDICAID, SELFPAY ==
[2024-01-08 11:46] LABS: MANUAL DIFF FLAG NO
[2024-01-08 11:59] LABS: Basophils Absolute Auto 0.1 X10*3/uL (0.0-0.2); Basophils Percent Auto 0.5 % (0-2); Eosinophils Absolute Auto 0.2 X10*3/uL (0.0-0.4); Eosinophils Percent Auto 2.1 % (0-4); Hematocrit 43.3 % (37.0-47.0); Imm Gran Abs Auto 0.03 X10*3/uL (0.00-0.03); Imm Gran Pct Auto 0.3 % (0.0-0.4); Lymphocytes Absolute Auto 2.7 X10*3/uL (1.2-4.9); Lymphocytes Percent Auto 28.1 % (20-40); Mean Corpuscular HGB Conc 32.3 g/dl (31.0-35.0); Mean Corpuscular Hemoglobin 28.9 pg (27.0-33.0); Mean Corpuscular Volume 89.5 fL (80.0-98.0); Mean Platelet Volume 12.3 fL (9.4-12.3); Monocytes Absolute Auto 0.4 X10*3/uL (0.1-1.2); Monocytes Percent Auto 4.5 % (2-11); Neutrophils Absolute Auto 6.2 x10*3/uL (2.0-8.3); Neutrophils Percent Auto 64.5 % (45-73); Platelet Count 237 X10*3/uL (160-400); Red Blood Count 4.84 X10*6/uL (4.20-5.50); Red Cell Distribution Width 12.9 % (11.0-16.0); White Blood Count 9.5 X10*3/uL (4.8-10.8)
[2024-01-08 12:17] LABS: Anion Gap 12 (12-20); Carbon Dioxide 26 mmol/L (22-29); Chloride 106 mmol/L (96-108); Potassium 4.3 mmol/L (3.3-5.1); Sodium 140 mmol/L (135-145)
== END 2024-01-08 10:55 | disposition home or self-care (01) ==
LOC: HO.HHCL 10:54
PROVIDERS: Visit Provider Nurse Practitioner Family
DX: M25.50 Pain in unspecified joint (principal)
CPT/HCPCS: 36415; 80051; 85025

== ENCOUNTER 2024-08-29 10:19 | Outpatient (REF) | payer MEDICAID, SELFPAY ==
--- OUTSIDE RECORDS SUMMARY | 2024-08-29 10:41 | XMS_ITS ---
Author Name [facility] Organization Unknown Results Test Name/Text Value Interpretation Date Range Source Lactic Acid 1mmol/L Normal [id number] 0.5 - 1.9 [facility] High Sensitivity Troponin 1hr 2.94ng/L Normal [id number] [facility] Culture Indicated Urine Culture Not Needed Normal [id number] [facility] Bacteria Urine Moderate Abnormal [id number] - [facility] Squamous Epithelial Cell Urine Moderate Normal [id number] - [facility] Sulema Influenza Type A Not Detected Normal [id number] [facility] [place]ma Influenza Type B Not Detected Normal [id number] [facility] COVID-19 Rapid PCR Not Detected Normal [id number] [facility] BUN 8.5mg/dL Below low normal [id number] 9 - 23 [facility] Albumin Level 4.7g/dL Normal [id number] 3.2 - 4.8 [facility] Globulin 3.8g/dL Normal [id number] 1.9 - 4.1 [facility] Albumin Globulin Ratio 1.2% Normal [id number] 1.1 - 2.2 [facility] Bilirubin,Total 0.7mg/dL Normal [id number] 0.3 - 1.2 C [facility] Creatinine 0.81mg/dL Normal [id number] 0.55 - 1.02 [facility] Alanine Aminotransferase 30U/L Normal [id number] 10 - 49 [facility] Alkaline Phosphatase 129U/L Above high normal [id number] 2 46 - 110 [facility] Aspartate Amino Transferase 27U/L Normal [id number] 0 - 33.9 [facility] Glucose 109mg/dL Above high normal [id number] 74 - 106 [facility] BUN Creatinine Ratio 11% Normal [id number] 7 - 25 [facility] Carbon Dioxide 27mmol/L Normal [id number] 20 - 31 [facility] Sodium 140mmol/L Normal [id number] 136 - 145 [facility] Total Protein 8.5g/dL Above high normal [id number] 5.7 - 8.2 [facility] Potassium 4mmol/L Normal [id number] 3.5 - 5.1 [facility] Chloride 105mmol/L Normal [id number] 98 - 107 [facility] Calcium 9.8mg/dL Normal [id number] 8.7 - 10.4 [facility] Anion Gap 8.3mmol/L Normal [id number] 5 - 16 [facility] High Sensitivity Trop(Initial) 3.3ng/L Normal [id number] [facility] Urine Microscopic Indicated Ur Sediment Examed Normal [id number] [facility] Color Urine Yellow Normal [id number] - [facility] Clarity Urine Clear Normal [id number] - [facility] Ketones Urine Negative Normal [id number] - [facility] Glucose Urine UA Negative Normal [id number] - [facility] Protein Urine Trace Abnormal [id number] - [facility] Nitrate Urine Negative Normal [id number] - [facility] Hemoglobin Urine Moderate Abnormal [id number] - [facility] Leukocyte Esterase Urine Negative Normal [id number] - [facility] Bilirubin Urine Negative Normal [id number] - C [facility] Specific Willow Urine 1.02 Normal [id number] 1 - 1.1 [facility] pH Urine 8 Normal [id number] 5 - 8 [facility] Urobilinogen Urine 0.2EU/dL Normal [id number] 0.1 - 1 [facility] Mean Corpuscular HGB Conc 32.6G/DL Normal [id number] 32 - 37 [facility] Monocytes Percent Auto 4.6% Normal [id number] 1 - 13 [facility] White Blood Count 16.6/CUMM Above high normal [id number] 4 .8 - 10.8 [facility] Granulocytes Absolute Auto 13/CUMM Above high normal [id number] 1 - 7 [facility] Platelet Count 247/CUMM Normal [id number] 140 - 440 [facility] Mean Corpuscular Hemoglobin 29.3PG Normal [id number] 27 - 31 [facility] Red Cell Distribution Width 12.7% Normal [id number] 11.5 - 14.5 [facility] Mean Platelet Volume 11.9FL Normal [id number] 7.4 - 12 [facility] Basophils Absolute Auto 0.1/CUMM Normal [id number] 0 - 0.2 [facility] Eosinophils Percent Auto 1.4% Normal [id number] 0 - 7 [facility] Basophils Percent Auto 0.4% Normal [id number] 0 - 2 [facility] Granulocytes Percent Auto 78.4% Above high normal [id number] 40 - 72 [facility] Immature Gran Absolute Auto 0.1/CUMM Normal [id number] 0 - 0.3 [facility] Red Blood Count 4.95/CUMM Normal [id number] 4.2 - 5.4 C [facility] Mean Corpuscular Volume 89.9FL Normal [id number] 80 - 96 [facility] Immature Granulocyte Percent 0.4% Normal [id number] 0 - 1 [facility] Monocytes Absolute Auto 0.8/CUMM Normal [id number] 0 - 1 [facility] Lymphocytes Percent Auto 14.8% Below low normal [id number] 20 - 51 [facility] Hemoglobin 14.5G/DL Normal [id number] 12 - 16 [facility] Lymphocytes Absolute Auto 2.5/CUMM Normal [id number] 1 - 4 [facility] Eosinophils Absolute Auto 0.2/CUMM Normal [id number] 0 - 1 [facility] Hematocrit 44.5% Normal [id number] 37 - 47 [facility] History of Medication Use Medication Directions Dispensed Refills Start Date End Date Stat us Methylprednisolone (Medrol (Romel)) 4 mg tablets,dose pack 08/03/2024 09/09/9999 active Naproxen 250 mg tablet 08/03/20249998 active Amoxicillin-Pot Clavulanate 875-125 mg tablet 08/03/2024 09/09/9999 active Albuterol Sulfate 90 mcg/actuation HFA aerosol inhaler 08/03/2024 09/09/9999 active Ondansetron 4 mg tablet,disintegrating 08/03/2024 09/09/9999 act john Polymyxin B Sulf-Trimethoprim 10,000 unit- 1 mg/mL drops 08/03/2024 09/09/9999 activ e Problems Problem Status Onset Date Problem Type Date of Resoluti on Source Colitis active ProblemAct [facility] Pneumoperitoneum active ProblemAct [facility]
[2024-08-29 12:10] LABS: Anion Gap 10 (12-20); Blood Urea Nitrogen 16 mg/dL (9-16); Calcium 8.9 mg/dL (8.4-10.2); Carbon Dioxide 26 mmol/L (22-29); Chloride 109 mmol/L (96-108); Estimated Glomerular Filt Rate > 60; Glucose Random 104 mg/dL (60-115); Potassium 4.3 mmol/L (3.3-5.1); Sodium 141 mmol/L (135-145)
== END 2024-08-29 10:20 | disposition home or self-care (01) ==
LOC: HO.HHCL 10:19
PROVIDERS: Visit Provider Internal Medicine Geriatric Medicine
DX: R23.2 Flushing (principal); I10 Essential (primary) hypertension
CPT/HCPCS: 36415; 80048; 83001; 83002

== ENCOUNTER 2025-01-09 07:59 | Outpatient (AMB) | payer MEDICAID, SELFPAY ==
--- NOTE | 2025-01-09 08:00 | A.OFFVIS_ITS ---
Vital Signs 01/09/25 08:16 Height 5 ft Weight 185 lb BMI 36.1 BP 142/94 H Blood Pressure Location Rt brachial Position Sitting Pulse 72 Pulse Source Pulse Oximeter Pulse Oximetry (%) 98 Oxygen Delivery Method Room Air Intake Visit Reasons: diverticulitis Intake Note: NEW PATIENT for diverticulitis initial eval. Hospitalization 07/2024. Prior hx of colo/egd? 2020, 5 year recall. Chief Complaint; C.O. constipation/diarrhea intermittently, BRB/DRB intermittently per rectum, generalized GI upset, and occasional reflux. Pt denies any additional sx or concerns at this time. ER hospitalization through [facility] Puddler Required: No Accompanied by: Self / Same As Patient Allergies No Known Allergies Allergy (Verified 01/09/25 08:03) HPI HPI diverticulitis: Details: LAST VISIT: 09/2020 WITH Valorie MARTINEZ Assessment & Plan (1) Rectal bleeding: Comment: Rectal bleeding from hemorrhoids noted during colonoscopy. She will maintain a high-fiber diet as well as avoid straining and she may use Proctozone p.r.n., sent to pharmacy Code(s): K62.5 - Hemorrhage of anus and rectum Category: Medical Patient Instructions: She will maintain a high-fiber diet as well as avoid straining and she may use Proctozone p.r.n., sent to pharmacy (2) Colon adenoma: Comment: Repeat colonoscopy 5 years-2025 Code(s): D12.6 - Benign neoplasm of colon, unspecified Category: Medical Patient Instructions: A pleasant 44-year-old female follows up after recent colonoscopy for rectal bleeding. Colonoscopy with polypectomy revealed a tubular adenoma.-she will repeat colonoscopy in 5 years ( 2025). Due to heredity all FDR-should begin colon screening at age 34. Encouraged to call with questions or concerns. We appreciate the opportunity to assist in care of the patient. (3) Hemorrhoids: Comment: Avoid straining-maintain high-fiber diet Code(s): K64.9 - Unspecified hemorrhoids Category: Medical Patient Instructions: Avoid straining, maintain high-fiber diet encouraged to call questions or concerns Proctozone p.r.n. TODAY'S VISIT: 49-year-old female is here today referred after being hospitalized back in July of 2024 for diverticulitis. Patient works in [place] and while working started with severe abdominal pain seen in the ER in [facility] diagnosed with diverticulitis. Patient was seen previously in our office by JUAN Craig. Provided no longer in the practice. Patient reports that she is having ongoing abdominal pain and bloating. Pain is severe mostly in upper abdomen. Pain not only after meals sometimes patient feels comes on suddenly. Feels like cramping. Pains are very strong. Patient also reports swelling in her bilateral legs and hands. Patient showed picture to this provider with bilateral lower extremity swelling and rash. Patient does well believe that this is happen because of the food that she is eating. Patient reports that it happened few times in the past. Patient states that she is eating clean. 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 Patient reports occasional blood in her stools. Admits to being constipated at times, however she also is struggling with occasional loose stools. Patient reports acid reflux is under control most of the time, however she admits that she gets epigastric pain occasionally postprandially, feeling gassy and occasional reflux. Patient denies eating late at night. Denies any nausea or vomiting. Denies any dyspepsia, dysphagia or odynophagia. Patient reports that she does eat fruits and vegetables. Last colonoscopy as mentioned above was in 2020 and the next colonoscopy was recommended for for 5 year recall. [facility] Medical History Impaired hearing Arthritis Back pain Lab test positive for detection of COVID-19 virus Menorrhagia Rectal bleeding Surgical History History of suburethral sling procedure History of colonoscopy Hx of oral surgery Hx of cosmetic plastic surgery H/O breast augmentation Family History Maternal Grandfather Colon cancer Maternal Aunt Ovarian cancer Family/Other Primary bone cancer Maternal Grandmother Throat cancer Stroke Dementia Sister Lupus Anemia Mother Stroke Asthma Dementia Parkinsons disease Social History Alcohol intake: current Alcohol intake frequency: holidays/special occasions only Patient Tobacco Use Status: Current someday Tobacco user Tobacco use type: Cigarette Years Smoked: 20 Substance Use Type: Marijuana Review of Systems Const Denies weight gain and Denies weight loss ENT Reports no additional complaints, Denies dysphagia and Denies odynophagia Card Reports no additional complaints Resp Reports no additional complaints GI Denies abdominal pain, Denies belching, Denies melena, Reports bloating, Reports hematochezia (Occasional), Denies change in bowel habits, Reports constipation, Denies dysphagia, Denies excessive flatus, Denies dyspepsia, Denies heartburn, Denies diarrhea, Reports loose stools, Denies nausea, Denies odynophagia and Denies vomiting Reports no additional complaints Musc Reports no additional complaints Neuro Reports no additional complaints Psych Reports no additional complaints Endo Reports no additional complaints Physical Exam Vital Signs: Last Vital Signs Pulse 72 01/09/25 08:16 BP 142/94 H 01/09/25 08:16 Pulse Ox 98 01/09/25 08:16 Oxygen Delivery Method Room Air 01/09/25 08:16 BMI result Body Mass Index 36.1 Const General: healthy appearing, no acute distress and well developed Nutritional Appearance: well nourished Orientation/consciousness: patient oriented x3 Resp Effort & Inspection: normal respiratory effort, able to speak in complete sentences, no tracheal deviation and symmetric chest movement Auscultation: clear to auscultation bilaterally Cardio Rate: regular rate GI Inspection: Yes normal to inspection and No distended Palpation (GI): Soft to palpation, not firm, nontender and No hepatosplenomegaly present Auscultation: normal bowel sounds General: Yes no CVA tenderness Back/Spine/Pelvis Back: no CVA tenderness Skin General skin exam: elasticity normal, turgor normal and dry skin Neuro General: patient oriented x3 Psych Appearance: grossly normal Mental Status: mental status grossly normal Assessment & Plan Assessment & Plan (1) Hemorrhoids: Code(s): K64.9 - Unspecified hemorrhoids Category: Medical Qualifiers: Hemorrhoid type: unspecified Qualified Code(s): K64.9 - Unspecified hemorrhoids (2) Colon adenoma: Comment: Repeat colonoscopy 5 years-2025 Code(s): D12.6 - Benign neoplasm of colon, unspecified Category: Medical (3) Rectal bleeding: Code(s): K62.5 - Hemorrhage of anus and rectum Category: Medical (4) Postprandial abdominal bloating: Code(s): R14.0 - Abdominal distension (gaseous) (5) GERD (gastroesophageal reflux disease): Code(s): K21.9 - Gastro-esophageal reflux disease without esophagitis Qualifiers: Esophagitis presence: esophagitis presence not specified Qualified Code(s): K21.9 - Gastro-esophageal reflux disease without esophagitis (6) Postprandial epigastric pain: Code(s): R10.13 - Epigastric pain Plan Discussed with patient avoiding dietary triggers and lid I study. Staying upright for minimum 3 hours after meals discussed with patient. Discussed with her also try a low FODMAP diet. List of food recommended as well as list of food to avoid given to patient. Patient will start taking pantoprazole in the morning half an hour before breakfast. Patient will get iazm-clf-qiugkge fiber supplements and take it daily. Will check vitamin-D, B12, folate thyroid study as well as transglutaminase to rule out celiac. Patient reports epigastric pain. She will most likely be sent for upper endoscopy if she continues symptoms. Possibly colonoscopy if she will continue with the symptoms. To ensure that the patient is emptying her bowels completely she will start taking Senokot daily. Patient will follow-up in 2-3 months, sooner basis. She is agreeable to this plan and verbalizes understanding of instructions. She was given the opportunity to ask questions and all questions answered. Thank you for allowing me to participate in her care Orders: Orders Vitamin D 25-OH (D2 and D3) Today E55.9 - Vitamin D deficiency, unspecified Vitamin B12 and Folate Today R19.7 - Diarrhea, unspecified TSH reflex Free T4 Today K59.00 - Constipation, unspecified Transglutaminase IgA Today R10.9 - Unspecified abdominal pain Medications: New sennosides (Natural Senna Laxative) 17.2 mg (2 x 8.6 mg) PO BEDTIME 60 tabs 3RF constipation K59.00 - Constipation, unspecified pantoprazole take one tablet half an hour before breakfast 40 mg PO DAILY 30 tabs 2RF K21.9 - Gastro-esophageal reflux disease without esophagitis Coding Level of Care Code New Pt Level 4 (83088) Diagnoses Hemorrhoids, unspecified hemorrhoid type K64.9 Hemorrhoid type: unspecified Colon adenoma D12.6 Rectal bleeding K62.5 Postprandial abdominal bloating R14.0 Gastroesophageal reflux disease, unspecified whether esophagitis present K21.9 Esophagitis presence: esophagitis presence not specified Postprandial epigastric pain R10.13 Time Spent (min) 50 Comment 35 minutes spent with patient and additional 15 minutes spent reviewing her records
--- OUTSIDE RECORDS SUMMARY | 2025-01-09 08:04 | XMS_ITS | Encounter Summary ---
Author Organization [facility] Address [address] [place] [address] Care Team Providers Care Vc++ Developer Name Role Phone Name, Jean DO Primary Care Provider [phone] Reason for Visit * Reason Onset Date Comments Nurse Triage 03/17/2024 Encounter Details Date Type Department Care Team ([facility] st Contact Info) Description 03/17/2024 Telephone [facility] [address], [place] [id number] Name, MD Jean [address] [place] [address] Nurse Triage Social History Tobacco Use Types Packs/Day Years Used Date Smoking Tobacco: Never Smokeless Tobacco: Never Alcohol Use Standard Drinks/Week Comments Never 0 (1 standard drink = 0.6 oz pur e alcohol) Depression Answer Date Recorded Patient Health Questionnaire-9 Score 0 10/09/2023 Patient Health Questionnaire-9 Score 0 10/09/2023 Last PHQ-9: Questionnaire Data Not on file 0 10/09/2023 Housing Stability Answer Date Recorded What is your housing situation today? I have evin eisenberg 10/09/[address] you li ve. Do you have problems with any of the following? None of the above 10/09/2023 Food Insecurity Answer Date Recorded Within the past 12 months, y ou worried that your food would run out before you got money to buy more: Never True 10/09/2023 Within the past 12 months,th e food you bought just didn't last and you didn't have enough money to get more: Never True Transportation Answer Date Recorded In the past 12 months, has l ack of transportation kept you from medical appts, meetings, work or from getting things needed for daily living? No 10/09/2023 Utilities Answer Date Recorded In the past 12 months, has t he electric, gas, oil or water company threatened to shut off services in your home? No 10/09/2023 Depression Answer Date Recorded Patient Health Questionnaire-2 Score 0 10/09/2023 Comments No Sex and Gender Information Value Date Recorded Sex Assigned at Female 07/10/2022 10:37 AM EDT Legal Sex Female 10:37 AM EDT Gender Identity Female 07/10/2022 10:37 AM EDT Sexual Orientation Straight 07/10/2022 10 :37 AM EDT documented as of this encounter Miscellaneous Notes * Telephone Encounter - Della Clark RN - 03/17/2024 4:12 PM EDT Called pt. She states that she has been having swollen and stiff joints and she is unsure if it is the heat. Pt. Wants refill on her Ibuprofen 600mg. Pt. States that Naproxen does not help. Pt. Declines office visit and thinks Ibuprofen will help for now. Advised pt. To stay cool and elevate legs. Denies any chest pain or SOB. Protocol Used: Muscle Aches and Body Pain (Adult) Protocol-Based Disposition: See in Office or Video Visit within 3 Days Video visit not offered Positive Triage Question: * Moderate pain (e.g., interferes with normal activities) and present > 3 days * All higher-acuity triage questions were negative Care Advice Discussed: * Reassurance and Education - Mild Muscle Pain * Pain Medicines * Telephone Encounter - Coty Simpson - 03/17/2024 3:53 PM EDT Symptoms: Hand or Wrist Swelling, Hand or Wrist Pain - Not From Injury Outcome: Schedule an urgent appointment (within 1 hour) or talk to a nurse or provider soon Reason: Severe pain now The caller accepted this outcome Pt is requesting ibuprofen documented in this encounter Plan of Treatment Upcoming Encounters Date Type Department Care Team (Late st Contact Info) Description 02/27/2025 10:15 AM EDT Office Visit [facility] [address] [place] [address] Name, MD Jean [address] [place] [address] documented as of this encounter Visit Diagnoses Not on filedocumented in this encounter Additional Health Concerns Assessment Noted Time PHQ-9 Depression Total Score: 0 10/09/19 24 9:23 AM EST documented as of this encounter Care Teams Vc++ Developer Relationship Specialty Start Date End Date Name, [place] [address] PCP - General Family Medicine 04/28/20 documented as of this encounter
--- OUTSIDE RECORDS SUMMARY | 2025-01-09 08:04 | XMS_ITS | Clinical Summary ---
Author Organization [facility] ity Address [address] [place] [address] Care Team Providers Care Electrocardiograph Technician Name Role Phone Tawanna Rodriguez MD Primary Care Provider [phone] Allergies No known active allergies Medications gabapentin (NEURONTIN) 300 mg capsule Take 300 mg by mouth 3 times daily. 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 Immunizations Name Administration Dates Next Due Tdap Tetanus diptheria acell ular pertussis (Boostrix; Adacel) 7yo and older 06/07/2012 Social History Tobacco Use Types Packs/Day Years Used Date Smoking Tobacco: Never Assessed Comments Unknown Sex and Gender Information Value Date Recorded Sex Assigned at Not on file Legal Sex Female 1:51 PM EST Gender Identity Not on file Sexual Orientation Not on file Plan of Treatment Health Maintenance Due Date Last Done Comments Breast Cancer Screening 1974 Hepatitis B Vaccines (1 of 3 - 19+ 3-dose series) 1993 Cervical Cancer Screening: P ap Smear 01/02/2020 01/01/2017, 01/01/2017 DTaP,Tdap,and Td Vaccines (2 - Td or Tdap) 06/07/2022 06/07/2012 Colorectal Cancer Screening: Colonoscopy 08/08/2022 Depression Screening 08/08/2022 Hepatitis C Screening 08/08/2022 Social Influencers of Health Screening 08/08/2022 COVID-19 Vaccine (1 - 2023-2 5 season) 2024 Pneumococcal Vaccine: 50+ Years (1 of 1 - PCV) 2024 Zoster Vaccines (1 of 2) 2024 Influenza Vaccine (Season Ended) 2025 HIV Screening Completed 01/01/2017 HIB Vaccines Aged Out No longer eligi ble based on patient's age to complete this topic HPV Vaccines Aged Out No longer eligi ble based on patient's age to complete this topic Hepatitis A Vaccines Aged Out No long er eligible based on patient's age to complete this topic IPV Vaccines Aged Out No longer eligi ble based on patient's age to complete this topic MMR Vaccines Aged Out No longer eligi ble based on patient's age to complete this topic Meningococcal ACWY Vaccine Aged Out N o longer eligible based on patient's age to complete this topic Meningococcal B Vaccine Aged Out No l onger eligible based on patient's age to complete this topic Pneumococcal Vaccine: Pediatrics (0 to 5 Years) and At-Risk Patients (6 to 64 Years) Aged Out No longer eligible b ased on patient's age to complete this topic RSV Immunization Patients Under 20 months Aged Out No longer eligible b ased on patient's age to complete this topic Varicella Vaccines Aged Out No longer eligible based on patient's age to complete this topic Procedures Procedure Name Priority Date/Time Associated Diagnosis Comments HIV SCREENING Routine 01/01/2017 HPV Routine 01/01/2017 from Last 3 Months or Most Recently Relevant to Health Maintenance Results * Cervical Cancer Screening: HPV (01/01/2017) Pathologist [facility] Cervical Cancer Screening: HPV Negative, Abstracted us Historical Provider HEALTH MAINTENANCE Final Result * HIV Screening (01/01/2017) Pathologist [facility] HIV Screening Abstracted Historical Provider HEALTH MAINTENANCE Final Result from Last 3 Months or Most Recently Relevant to Health Maintenance Care Teams Electrocardiograph Technician Relationship Specialty Start Date End Date Tawanna Rodriguez MD [address] [place] [id number] PCP - General Internal Medicine 11/10/15
--- OUTSIDE RECORDS SUMMARY | 2025-01-09 08:04 | XMS_ITS | Encounter Summary ---
Author Organization [employer] Address [address] [place] [address] Care Team Providers Care Sat Act Instructor Name Role Phone Name, Jean DO Primary Care Provider [phone] Encounter Details Date Type Department Care Team (Late Contact Info) Description 02/19/2023 Abstract [facility] MEDICINE [address] [place] [address] [phone] NameJean MD [address] [place] [address] [phone] Social History Tobacco Use Types Packs/Day Years Used Date Smoking Tobacco: Never Smokeless Tobacco: Never Alcohol Use Standard Drinks/Week Comments Never 0 (1 standard drink = 0.6 oz pur e alcohol) Depression Answer Date Recorded Patient Health Questionnaire-2 Score 0 08/30/2022 Comments Unknown Sex and Gender Information Value Date Recorded Sex Assigned at Female 07/10/2022 10:37 AM EDT Legal Sex Female 10:37 AM EDT Gender Identity Female 07/10/2022 10:37 AM EDT Sexual Orientation Straight 07/10/2022 10 :37 AM EDT COVID-19 Exposure Response Date Recorded In the last 10 days, have yo u been in contact with someone who was confirmed or suspected to have Coronavirus/COVID-19? No / Unsure 02/09/2023 9:37 AM EDT documented as of this encounter Plan of Treatment Upcoming Encounters Date Type Department Care Team ([facility] Contact Info) Description 02/27/2025 10:15 AM EDT Office Visit [facility] MEDICINE [address] [place] [address] [phone] Name, MD Jean [address] [place] [id number] documented as of this encounter Visit Diagnoses Not on filedocumented in this encounter Care Teams Sat Act Instructor Relationship Specialty Start Date End Date Name, MD Jean [address] [place] [address] PCP - General Family Medicine 04/28/20 documented as of this encounter
--- OUTSIDE RECORDS SUMMARY | 2025-01-09 08:04 | XMS_ITS | Encounter Summary ---
Author Organization [employer] Address [address] [place] [address] Care Team Providers Care Asthma Educator Name Role Phone Name, Jean DO Primary Care Provider [phone] Reason for Visit * Reason Onset Date Comments Hospital Follow-up 07/28/2024 Encounter Details Date Type Department Care Team ([facility] st Contact Info) Description 07/28/2024 Telephone [facility] MEDICINE [address] [place], [place] [phone] Name, MD Jean [address] [place] [address] Hospital Follow-up Social History Tobacco Use Types Packs/Day Years [...] encounter Miscellaneous Notes * Telephone Encounter - Yulisa Lamar - 07/29/2024 1:58 PM EST Tc from pt returning call. * Telephone Encounter - Dee Savage - 07/28/2024 9:38 AM EST Tc from pt requesting a HDF appt. Hospital: [facility] Date of admission: 07/20/2024 Discharge date: 07/26/2024 Diagnosed: Diverticulitis documented in this encounter Plan of Treatment Upcoming Encounters Date Type Department Care Team (Late st Contact Info) Description 02/27/2025 10:15 AM EDT Office Visit [facility] MEDICINE [address] [place] [address] Name, MD Jean [address] [place] [address] documented as of this encounter Visit Diagnoses Not on filedocumented in this encounter Additional Health Concerns Assessment Noted Time PHQ-9 Depression Total Score: 0 10/09/19 24 9:23 AM EST documented as of this encounter Care Teams Asthma Educator Relationship Specialty Start Date End Date NameJean MD [address] [place] [address] PCP - General Family Medicine 04/28/20 documented as of this encounter
--- OUTSIDE RECORDS SUMMARY | 2025-01-09 08:04 | XMS_ITS | Encounter Summary ---
Author Organization [employer] Address [address] [place] [address] Care Team Providers Care Operations Advisor Name Role Phone Name, Jean DO Primary Care Provider [phone] Reason for Visit * Reason Onset Date Comments Medication Question 11/27/2024 Prior Auth Prescription 11/27/2024 Zepbound Encounter Details Date Type Department Care Team ([facility] st Contact Info) Description 11/27/2024 Telephone [facility] MEDICINE [address] [place], [place] [phone] Name, MD Jean [address] [place] [address] Medication Question; Prior Auth Prescription (Zepbound) Social History Tobacco Use Types Packs/Day Years Used Date Smoking Tobacco: Never Smokeless Tobacco: Never Alcohol Use Standard Drinks/Week Comments Never 0 (1 standard drink = 0.6 oz pur e alcohol) Depression Answer Date Recorded Patient Health Questionnaire-9 Score 10 11/11/2024 Patient Health Questionnaire-9 Score 10 11/11/2024 Last PHQ-9: Questionnaire Data Not on file 0 11/11/2024 Housing Stability Answer Date Recorded What is your housing situation today? I have evin eisenberg 11/11/[address] you li ve. Do you have problems with any of the following? None of the above 11/11/2024 Food Insecurity Answer Date Recorded Within the past 12 months, y ou worried that your food would run out before you got money to buy more: Sometimes True 2024 Within the past 12 months,th e food you bought just didn't last and you didn't have enough money to get more: Never True 11/11/2024 Transportation Answer Date Recorded In the past 12 months, has l ack of transportation kept you from medical appts, meetings, work or from getting things needed for daily living? No 11/11/2024 Utilities Answer Date Recorded In the past 12 months, has t he electric, gas, oil or water company threatened to shut off services in your home? No 11/11/2024 Depression Answer Date Recorded Patient Health Questionnaire-2 Score 1 11/11/2024 Internet Access Answer Date Recorded Internet Access Q1 Yes 11/11/2024 Internet Access Q2 Not on file 11/11/2024 Comments No Sex and Gender Information Value Date Recorded Sex Assigned at Female 07/10/2022 10:37 AM EDT Legal Sex Female 10:37 AM EDT Gender Identity Female 07/10/2022 10:37 AM EDT Sexual Orientation Straight 07/10/2022 10 :37 AM EDT documented as of this encounter Miscellaneous Notes * Telephone Encounter - Dayami Reyna LPN - 01/06/2025 4:08 PM EDT Status is in media for review , called pt no answer. Tc from pt requesting status of medication Zepbound Training And Development Assistant contact pharmacy and was inform waiting on PA * Telephone Encounter - Dee Savage - 12/31/2024 3:16 PM EDT Tc from pt requesting status of medication Zepbound Training And Development Assistant contact pharmacy and was inform waiting on PA * Telephone Encounter - Susan Turpin - 12/10/2024 11:08 AM EDT PA Denial for Zepbound received and scanned into media. * Telephone Encounter - Susan Turpin - 12/09/2024 11:41 AM EDT PA for Zepbound signed and faxed to [employer]. Confirmation received and sent to scan. If patient calls to check status on above, please advise them to contact Pharmacy . * Telephone Encounter - Susan Turpin - 12/04/2024 3:16 PM EDT PA for Zepbound from [facility] placed on PCP desk for review and signature. * Telephone Encounter - Bernadine Russell RN - 11/27/2024 4:31 PM EDT Incoming call from pt to let them know PA request for Zepbound has been initiated and we'll give them a call in few days if their insurance has approved or denied the request. Pt expressed understanding and no further questions or concerns at this time. * Telephone Encounter - Bernadine Russell RN - 11/27/2024 4:19 PM EDT Tc [facility] pharamcy reports rx Zepbound sent out on 11/11/24 still needs a PA. Tc to pt to let them know , no answer, lvm to return call and ask to speak to blue team nurses. Message forwarded to PA specialist to complete request. * Telephone Encounter - Dee Savage - 11/27/2024 4:04 PM EDT Tc from pt requesting status of medication Zepbound. Please return call [phone] documented in this encounter Plan of Treatment Upcoming Encounters Date Type Department Care Team (Late st Contact Info) Description 02/27/2025 10:15 AM EDT Office Visit [facility] MEDICINE [address] [place] [phone] Name, MD Jean [address] [place] [address] documented as of this encounter Visit Diagnoses Not on filedocumented in this encounter Additional Health Concerns Assessment Noted Time PHQ-9 Depression Total Score: 10 11/11/ 025 12:12 PM EST documented as of this encounter Care Teams Operations Advisor Relationship Specialty Start Date End Date Name, MD Jean [address] [place] [address] PCP - General Family Medicine 04/28/20 documented as of this encounter
--- OUTSIDE RECORDS SUMMARY | 2025-01-09 08:04 | XMS_ITS | Clinical Summary ---
Author Organization [employer] Address [address] [facility] 7t [place] [address] Care Team Providers Care Winding Operator Name Role Phone Name, Jean DO Primary Care Provider [phone] Allergies No known active allergies Medications * This document contains information received from the source organization and may not represent a complete record from that organization. albuterol 108 (90 Base) MCG/ACT inhaler Inhale 2 puffs every 6 (six) hours if needed for wheezing. 18 g 11 02/10/20 23 Active Blood Pressure kit Use once a day 1 kit 10/09/19 24 Active SUMAtriptan (Imitrex) 25 MG tablet Take 1 tablet (25 mg) by mouth 1 (one) time if needed for migraine for up to 1 dose. 9 tablet 1 10/25/19 24 Active propranolol (Inderal) 40 MG tabletIndicatio ns:Hypertension , unspecified type Take 1 tablet (40 mg) by mouth 2 times daily. 60 tablet 2 01/29/20 24 Active ibuprofen 600 MG tablet Take 600 mg by mouth every 8 (eight) hours if needed for moderate pain. 05/07/20 13 Active trospium (Sanctura) 20 MG tablet Take 1 tablet by mouth 2 times daily. 05/29/20 24 Active Vibegron (Gemtesa) 75 MG tablet Take 1 tablet by mouth Once per day. 05/22/20 24 Active losartan-hydroC HLOROthiazide (Hyzaar) 50-12.5 MG tablet Take 1 tablet by mouth in the morning. 30 tablet 11 01/02/20 25 026 Active losartan-hydroC HLOROthiazide (Hyzaar) 50-12.5 MG tablet Take 1 tablet by mouth in the morning. 30 tablet 11 10/24/19 24 025 Discontinued Tirzepatide-Portillo ght Management (Zepbound) 2.5 MG/0.5ML solution auto-injector Inject 0.5 mL (2.5 mg) under the skin 1 (one) time per week. 2 mL 11/12/19 25 025 Active Problems Problem Noted Date Diagnosed Date DJD (degenerative joint disease) 08/28/2024 Back pain 08/28/2024 Class 2 obesity 07/27/2023 07/27/2023 Adjustment disorder with mixed anxiety and depre ssed mood 03/26/2023 Assessment & Plan (03/26/2023 10:30 AM EDT): Patient presents with anxious mood, restlessness, irritability, difficulty falling and maintaining sleep, depressed mood, anhedonia, tearfulness, decreased appetite, difficulty concentrating and increased migraine episodes. She also reports episodes of difficulty breathing, palpitations, chest discomfort, GI discomfort and unsteadiness. Xiang reports sxs exacerbated after the passing of her mother about a month ago, after a prolonged medical decline, for which patient was primary caregiver. We discussed current support systems, behavioral activation and possible referrals to OP individual therapy. Patient was engaged after some hesitation and resistance to engage in consult. She was able to identify potential activities to engage outside of her home to both promote behavioral activation and process grief. She decline referrals, but accepted [facility] follow up call. 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 Resolved Problems Problem Noted Date Diagnosed Date Resolved Date Urinary incontinence 07/27/2023 07/27/2023 024 Grief reaction 03/26/2023 08/29/2024 Joint pain 08/19/2022 08/29/2024 Swelling of hand 08/19/2022 08/29/2024 Encounters Date Type Department Care Team Description 12/31/2024 Refill [facility] [address] [place] [address] Jean Dubois MD 11/27/2024 Telephone [facility] [address] [place] [address] Jean Dubois MD Medication Question; Prior Auth Prescription (Zepbound) 11/21/2024 Population Health Risk Score [facility] (C3) Department [address] [address] Provider, Population Health Generic 11/12/2024 Telephone [facility] [address] [place] [address] Yamilka Fuller [place] Appointment 11/11/2024 11:15 AM EST Office Visit [facility] [place] [place] [address] Jean Dubois MD Hypertension, unspecified type (Primary Dx); History of colonic diverticulitis; Class 2 severe obesity due to excess calories with serious comorbidity and body mass index (BMI) of 37.0 to 37.9 in adult ([facility]) 11/11/2024 Travel from Last 3 Months Immunizations Name Administration Dates Next Due Hep B, adult 10/31/2016,10/03/2016 MMR 10/31/2016,10/03/2016 Pfizer Covid-19 Vaccine 12+ 04/18/2021, Tdap 09/28/2016,07/21/2016,06/07/2012 Family History Medical History Relation Name Comments Colon cancer Maternal Grandfather Breast cancer Maternal Great-Grandmother Maternal great aunt breast cancer as well Dementia Mother Diabetes Mother Seizures Mother Uterine cancer Mother's Sister Relation Name Status Comments Maternal Grandfather Maternal Great-Grandmother Other Mother Mother's Sister Social History Tobacco Use Types Packs/Day Years Used Date Smoking Tobacco: Never Smokeless Tobacco: Never Tobacco Cessation:Counseling Given: Not Answered Alcohol Use Standard Drinks/Week Comments Never 0 [...] Orientation Straight 07/10/2022 10 :37 AM EDT Last Filed Vital Signs Vital Sign Reading Time Taken Comments Blood Pressure 127/79 11/11/2024 11:49 AM EST Pulse 63 11/11/2024 11:30 AM EST Temperature 37 ??C (98.6 ??F) 11/11/2024 11:30 AM EST Respiratory Rate 16 11/11/2024 11:30 AM EST Oxygen Saturation 98% 11/11/2024 11:30 AM EST Inhaled Oxygen Concentration - - Weight 90.4 kg (199 lb 6.4 oz) 11/11/2024 11:30 AM EST Height 154.9 cm (5' 1 ) 11/11/2024 11:30 AM EST Body Mass Index 37.68 11/11/2024 11:30 AM EST Plan of Treatment Upcoming Encounters Date Type Department Care Team (Late st Contact Info) Description 02/27/2025 10:15 AM EDT Office Visit [facility] [address] [facility] [place] [address] Name, MD Jean Emery [facility] [place] [address] Health Maintenance Due Date Last Done Comments CT Colonography 1974 FIT DNA/Cologuard 1974 FIT 1974 FOBT 1974 HIV Screening 1974 Sigmoidoscopy 1974 Family Planning (PISQ) 1989 Hepatitis C Screening 1992 Hepatitis B Vaccines (3 of 3 - 19+ 3-dose series) 04/02/2017 10/31/2016, 10/03/2016 Pap Smear 06/02/2023 06/02/2020 Mammogram 08/22/2023 08/22/2021, 08/22/2021, 08/22/2021 COVID-19 Vaccine (3 - 2023-2 5 season) 2024 04/18/2021, 01/09/2021 Influenza Vaccine (#1) 2024 Pneumococcal Vaccine: 50+ Years (1 of 1 - PCV) 2024 Zoster Vaccines (1 of 2) 2024 Cervical Cancer Screening 06/02/2025 HPV/Cotest 06/02/2025 06/02/2020 Lipid Panel 09/06/2025 09/06/2020 Colonoscopy 09/29/2025 09/29/2020 Colorectal Cancer Screening 09/29/2025 Alcohol/Substance Use Screening 11/11/2025 11/11/2024 Depression Screening 11/11/2025 11/11/2024, 11/11/2024 SDOH Screening 11/11/2025 11/11/2024 Tobacco Screening 11/11/2025 11/11/2024 DTaP/Tdap/Td Vaccines (4 - T d or Tdap) 09/28/2026 09/28/2016, 07/21/2016, 06/07/2012 RSV Patients and Patients Aged 60 years or older (1 - 1-dose 75+ series) 2049 HIB Vaccines Aged Out No longer eligi [...] patient's age to complete this topic Meningococcal Vaccine Aged Out No nigel louise eligible based on patient's age to complete this topic RSV under 20 months Aged Out No longe r eligible based on patient's age to complete this topic Rotavirus Vaccines Aged Out No longer eligible based on patient's age to complete this topic Procedures Procedure Name Priority Date/Time Associated Diagnosis Comments MAMMOGRAM GENERIC Routine 08/22/2021 3:3 4 PM EST HM COLONOSCOPY Routine 09/29/2020 LIPID PANEL, STANDARD Routine 09/06/2020 10:07 AM EST HPV MRNA E6/E7 Routine 06/02/2020 11:13 AM EDT THINPREP PAP Routine 06/02/2020 11:13 AM EDT from Last 3 Months or Most Recently Relevant to Health Maintenance Results * Mammography Report 1 (08/22/2021 3:34 PM EST) Anatomical Region Laterality Modality Breast Bilateral Mammography 08/22/2021 3:34 PM EST Narrative 08/22/2021 5:19 PM EST Refer to the Notes tab for result details [facility] Procedure: Mammography Report 1 Procedure Note Provider, MD Dianne - 12/03/2022 Refer to the Notes tab for result details [facility] Procedure: Mammography Report 1 us Jean Name MD SMITH BI PROCEDURES Final Result * Hm Colonoscopy (09/29/2020) Colonoscopy PERFORMED Narrative Xenia Castillo - 09/29/2020 Recommended 5 year follow up us Historical Provider HEALTH MAINTENANCE Edited Result - Final * (ABNORMAL) LIPID PANEL, STANDARD (09/06/2020 10:07 AM EST) Chol/HDLC Ratio 5.4(H) <5.0 (calc) [facility] Cholesterol, Total 188 <200 mg/dL [facility] HDL Cholesterol 35(L) > OR = 50 mg/dL [facility] LDL Cholesterol 128(H) mg/dL (calc) [facility] Comment: Reference range: <100 ?? Desirable range <100 mg/dL for primary prevention; ?? <70 mg/dL for patients with CHD or diabetic patients ?? with > or = 2 CHD risk factors. ?? LDL-C is now calculated using the Kiarra ?? calculation, which is a validated novel method providing ?? better accuracy than the Friedewald equation in the ?? estimation of LDL-C. ?? Aldair FRIEDMAN et al. ABBY. 2013;310(19): 7552-7057 ?? (http://[employer].Embrane/faq/CXK229) Non-HDL Cholesterol 153(H) <130 mg/dL (calc) [facility] Comment: For patients with diabetes plus 1 major ASCVD risk ?? factor, treating to a non-HDL-C goal of <100 mg/dL ?? (LDL-C of <70 mg/dL) is considered a therapeutic ?? option. Triglycerides 134 <150 mg/dL [facility] 09/06/2020 10:0 7 AM EST us Jean Name LAB BLOOD ORDERABLES Final Resul t [facility] [address] * THINPREP PAP (06/02/2020 11:13 AM EDT) Pathologist [facility] Clinical Information: SEE COMMENT [facility] Comment:None given COMMENT SEE COMMENT [facility] Comment: EXPLANATORY NOTE: ? The Pap is a screening test for cervical cancer. It is ?? not a diagnostic test and is subject to false negative ?? and false positive results. It is most reliable when a ?? satisfactory sample, regularly obtained, is submitted ?? with relevant clinical findings and history, and when ?? the Pap result is evaluated along with historic and ?? current clinical information. ?? Electric Vehicle Electrician: SEE COMMENT [facility] Comment: DMM, CT(ASCP) CT screening location: [address] ??[address] Interpretation/Resu lt: SEE COMMENT [facility] Comment:Negative for intraep ithelial lesion or malignancy. LMP: SEE COMMENT [facility] Comment:05/16/20 Prev. BX: NONE GIVEN [facility] Prev. PAP: SEE COMMENT [facility] Comment:NONE GIVEN Review Electric Vehicle Electrician: SEE COMMENT [facility] Comment: RMM, CT(ASCP) CT screening location: [address] ??[address] SOURCE: SEE COMMENT [facility] Comment:None given Statement Of Adequacy: SEE COMMENT [facility] Comment: Satisfactory for evaluation. Endocervical/transformation zone component present. 06/02/2020 11:1 3 AM EDT Cindy Trinh [facility] LAB PATHOLOGY ORDERABLES Final Result Performing Organization Address [facility] de Phone Number [facility] [address] * HPV mRNA E6/E7 (06/02/2020 11:13 AM EDT) HPV nRNA E6/E7 Not Detected Not Detected [facility] Comment: This test was performed using the APTIMA HPV Assay ([employer] ?? This assay detects E6/E7 viral messenger RNA (mRNA) from 14 high-risk HPV types (16,18,31,33,35,39,45,51,52,56,58,59,66,68). ?? The analytical performance characteristics of this assay have been determined by [employer]. The modifications have not been cleared or approved by the FDA. This assay has been validated pursuant to the CLIA regulations and is used for clinical purposes. 06/02/2020 11:1 3 AM EDT Cindy WILEY LAB BLOOD ORDERABLES [place] l Result Performing Organization Address [facility] de Phone Number [facility] [address] from Last 3 Months or Most Recently Relevant to Health Maintenance Insurance [facility] [facility] Care Teams Winding Operator Relationship Specialty Start Date End Date Name, MD Jean [address] [place] [phone] PCP - General Family Medicine 04/28/20
--- OUTSIDE RECORDS SUMMARY | 2025-01-09 08:04 | XMS_ITS | Encounter Summary ---
Author Organization [employer] Address [address] [facility] [address] 7t [place] [address] Care Team Providers Care Roofer Apprentice Name Role Phone Name, Jean DO Primary Care Provider [phone] Reason for Visit * Reason Onset Date Comments Hospital Follow-up 07/29/2024 Encounter Details Date Type Department Care Team ([facility] st Contact Info) Description 07/29/2024 Telephone [facility] [address] [place], [place] [phone] Name, MD Jean [address] [place] [address] Hospital Follow-up Social History Tobacco Use Types [...] encounter Miscellaneous Notes * Telephone Encounter - Bart Sauceda - 07/29/2024 3:12 PM EST Tc from pt requesting a call back regarding scheduling her HDF. Contact pt at [phone] documented in this encounter Plan of Treatment Upcoming Encounters Date Type Department Care Team (Late st Contact Info) Description 02/27/2025 10:15 AM EDT Office Visit [facility] [address] [place] [phone] Name, MD Jean [address] [place] [address] documented as of this encounter Visit Diagnoses Not on filedocumented in this encounter Additional Health Concerns Assessment Noted Time PHQ-9 Depression Total Score: 0 10/09/19 24 9:23 AM EST documented as of this encounter Care Teams Roofer Apprentice Relationship Specialty Start Date End Date Name, MD Jean [address] [place] [address] [phone] PCP - General Family Medicine 04/28/20 documented as of this encounter
[2025-01-09 08:16] VITALS: BP 142/94; PULSE 72; O2SAT 98; BMI 36.1
== END 2025-01-09 08:39 | disposition home or self-care (01) ==
LOC: HO.HGI 07:59
PROVIDERS: PCP Internal Medicine Geriatric Medicine; Visit Provider Nurse Practitioner Family
DX: K64.9 Unspecified hemorrhoids (principal); D12.6 Benign neoplasm of colon, unspecified; K62.5 Hemorrhage of anus and rectum; R14.0 Abdominal distension (gaseous); K21.9 Gastro-esophageal reflux disease without esophagitis; R10.13 Epigastric pain
CPT/HCPCS: 99204

== ENCOUNTER → 2025-01-09 07:59 | Outpatient (BNVA) | payer MEDICAID, SELFPAY | PROVIDERS: PCP Internal Medicine Geriatric Medicine; Visit Provider Nurse Practitioner Family | DX: K64.9 Unspecified hemorrhoids (principal); K62.5 Hemorrhage of anus and rectum; D12.6 Benign neoplasm of colon, unspecified; K21.9 Gastro-esophageal reflux disease without esophagitis; R10.13 Epigastric pain; R14.0 Abdominal distension (gaseous) | CPT/HCPCS: 99212 ==

== ENCOUNTER 2025-01-12 10:16 | Outpatient (REF) | payer MEDICAID, SELFPAY ==
--- OUTSIDE RECORDS SUMMARY | 2025-01-12 11:34 | XMS_ITS | Encounter Summary ---
Author Organization [employer] Address [address] [facility] 7t [place] [address] Care Team Providers Care Teacher Resource Name Role Phone Name, Jean DO Primary Care Provider [phone] Encounter Details Date Type Department Care Team (Late Contact Info) Description 02/19/2023 Abstract [facility] [address] [place] [address] [phone] NameJean MD [address] [place] [address] [phone] Social History Tobacco Use Types Packs/Day Years [...] Upcoming Encounters Date Type Department Care Team ([facility] Contact Info) Description 02/27/2025 10:15 AM EDT Office Visit [facility] [address] [place] [phone] Name, MD Jean [address] [place] [phone] documented as of this encounter Visit Diagnoses Not on filedocumented in this encounter Care Teams Teacher Resource Relationship Specialty Start Date End Date Name, MD Jean [address] [place] [address] PCP - General Family Medicine 04/28/20 documented as of this encounter
--- OUTSIDE RECORDS SUMMARY | 2025-01-12 11:34 | XMS_ITS | Encounter Summary ---
Author Organization [employer] Address [address] [facility] 7t [place] [address] Care Team Providers Care Cottage Attendant Name Role Phone Name, Jean DO Primary Care Provider [phone] Reason for Visit * Reason Onset Date Comments Nurse Triage 03/17/2024 Encounter Details Date Type Department Care Team ([facility] st Contact Info) Description 03/17/2024 Telephone [facility] [address] [place], [place] [phone] Name, MD Jean [address] [place] [address] Nurse Triage Social History Tobacco Use Types [...] Description 02/27/2025 10:15 AM EDT Office Visit [facility] [address] [place] [address] Name, MD Jean [address] [place] [address] documented as of this encounter Visit Diagnoses Not on filedocumented in this encounter Additional Health Concerns Assessment Noted Time PHQ-9 Depression Total Score: 0 10/09/19 24 9:23 AM EST documented as of this encounter Care Teams Cottage Attendant Relationship Specialty Start Date End Date Name, [place] [address] PCP - General Family Medicine 04/28/20 documented as of this encounter
--- OUTSIDE RECORDS SUMMARY | 2025-01-12 11:34 | XMS_ITS | Encounter Summary ---
Author Organization [employer] Address [address] [facility] [address] 7t [place] [address] Care Team Providers Care Vp Of Customer Experience Strategy Name Role Phone Name, Jean DO Primary Care Provider [phone] Reason for Visit * Reason Onset Date Comments Hospital Follow-up 07/28/2024 Encounter Details Date Type Department Care Team ([facility] st Contact Info) Description 07/28/2024 Telephone [facility] [address] [place], [place] [phone] Name, MD Jean [address] [place] [address] Hospital Follow-up Social History Tobacco Use Types [...] from pt requesting a HDF appt. Hospital: [facility] Date of admission: 07/20/2024 Discharge date: 07/26/2024 Diagnosed: Diverticulitis documented in this encounter Plan of Treatment Upcoming Encounters Date Type Department Care Team (Late st Contact Info) Description 02/27/2025 10:15 AM EDT Office Visit [facility] [address] [place] [address] Name, MD Jean [address] [place] [address] documented as of this encounter Visit Diagnoses Not on filedocumented in this encounter Additional Health Concerns Assessment Noted Time PHQ-9 Depression Total Score: 0 10/09/19 24 9:23 AM EST documented as of this encounter Care Teams Vp Of Customer Experience Strategy Relationship Specialty Start Date End Date NameJean MD [address] [place] [address] PCP - General Family Medicine 04/28/20 documented as of this encounter
--- OUTSIDE RECORDS SUMMARY | 2025-01-12 11:34 | XMS_ITS | Clinical Summary ---
Author Organization [facility] ity Address [address] [place] [address] Care Team Providers Care President [employer] Name Role Phone Tawanna Rodriguez MD Primary Care Provider [phone] Allergies No known active allergies Medications gabapentin [...] Health Maintenance Due Date Last Done Comments Hepatitis B Vaccines (3 of 3 - 19+ 3-dose series) 04/02/2017 10/31/2016, 10/03/2016 Cervical Cancer Screening: P ap Smear 01/02/2020 01/01/2017, 01/01/2017 Colorectal Cancer Screening: Colonoscopy 08/08/2022 Hepatitis C Screening 08/08/2022 Social Influencers of Health Screening 08/08/2022 Breast Cancer Screening 08/22/2023 08/22/2021 COVID-19 Vaccine (3 - 2023-2 5 season) 2024 04/18/2021, 01/09/2021 Pneumococcal Vaccine: 50+ Years (1 of 1 - PCV) 2024 Zoster Vaccines (1 of 2) 2024 Hypertension/CHF/CAD Annual BMP Blood Test 01/09/2025 06/15/2016 Influenza Vaccine (Season Ended) 2025 Cholesterol Screening (Lipid Panel) 09/06/2025 09/06/2020, 02/21/2016 Depression Screening 11/11/2025 11/11/2024 DTaP,Tdap,and Td Vaccines (4 - Td or Tdap) 09/28/2026 09/28/2016, 07/21/2016, 06/07/2012 MMR Vaccines Aged Out 10/31/2016, 10/03/2016 No longer eligible based on patient's age to complete this topic HIV Screening Completed 01/01/2017 HIB Vaccines Aged [...] HIV SCREENING Routine 01/01/2017 HPV Routine 01/01/2017 ANNUAL BMP BLOOD TEST Routine 06/15/2016 LIPID PANEL Routine 02/21/2016 from Last 3 Months or Most Recently Relevant to Health Maintenance Results * Cervical Cancer Screening: HPV (01/01/2017) [facility] Cervical Cancer Screening: HPV Negative, Abstracted [facility] Provider HEALTH MAINTENANCE Final Result * HIV Screening (01/01/2017) [facility] HIV Screening Abstracted [facility] Provider HEALTH MAINTENANCE Final Result * Annual BMP Blood Test (06/15/2016) Pathologist [facility] Annual BMP Blood Test Abstracted [facility] Provider HEALTH MAINTENANCE Final Result * (ABNORMAL) Lipid panel (02/21/2016) [facility] LDL/HDL Ratio 5(A) 0 - 4 Triglycerides 147 0 - 150 mg/dL Cholesterol 150 0 - 200 mg/dL HDL 32(A) >=40 mg/dL LDL Cholesterol 89 0 - 100 mg/dL Blood Venous blood specimen / Unknown [facility] Provider LAB BLOOD ORDERABLES [place] l Result from Last 3 Months or Most Recently Relevant to Health Maintenance Care Teams President [employer] Relationship Specialty Start Date End Date Tawanna Rodriguez MD [address] [place] [id number] PCP - General Internal Medicine 11/10/15
--- OUTSIDE RECORDS SUMMARY | 2025-01-12 11:34 | XMS_ITS | Clinical Summary ---
Author Organization [email or web address] Address [address] [facility] 7[address] [place] [address] Care Team Providers Care Delivery Crew Member Name Role Phone Name, Jean DO Primary Care Provider [phone] Allergies No known active allergies Medications * [...] 30 tablet 11 10/24/19 24 025 Discontinued Active Problems Problem Noted Date Diagnosed Date [...] She decline referrals, but accepted [facility] Integration follow up call. Decreased hearing 08/19/2022 [...] Type Department Care Team Description 12/31/2024 Refill [facility] [address] [place] [address] Name, MD Jean 11/27/2024 Telephone [facility] [address] [place] [address] Jean Dubois MD Medication Question; Prior Auth Prescription (Zepbound) 11/21/2024 Population Health Risk Score [facility] () Department [address] [place] [id number] Provider, Population Health Generic 11/12/2024 Telephone [facility] [address] [place] [address] Yamilka Fuller [place] Appointment 11/11/2024 11:15 AM EST Office Visit [facility] [address] [place] [address] Jean Dubois MD Hypertension, unspecified type (Primary Dx); History of colonic diverticulitis; Class 2 severe obesity due to excess calories with serious comorbidity and body mass index (BMI) of 37.0 to 37.9 in adult ([facility]) 11/11/2024 Travel from Last 3 Months Immunizations [...] Description 02/27/2025 10:15 AM EDT Office Visit [facility] [address] [place] [phone] Name, MD Jean [address] [place] [address] Health Maintenance Due Date Last Done Comments CT Colonography 1974 FIT DNA/Cologuard 1974 FIT 1974 FOBT 1974 HIV Screening 1974 Sigmoidoscopy 1974 Family Planning (PISQ) 1989 Hepatitis C Screening 1992 Hepatitis B Vaccines (3 of 3 - 19+ 3-dose series) 04/02/2017 10/31/2016, 10/03/2016 Pap Smear 06/02/2023 06/02/2020 Mammogram 08/22/2023 08/22/2021, 08/22/2021, 08/22/2021 COVID-19 Vaccine ( - 2023-2 5 season) 2024 04/18/2021, 01/09/2021 [...] GENERIC Routine 08/22/2021 3:3 4 PM EST COLONOSCOPY Routine 09/29/2020 LIPID PANEL, STANDARD Routine [...] Mammography Report 1 us Jean Name MD MSITH BI PROCEDURES Final Result * Colonoscopy (09/29/2020) Colonoscopy PERFORMED Narrative Xenia Castillo [...] ?? Aldair FRIEDMAN et al. ABBY. 2013;310(19): 5958-7800 ?? (http://education.IQ Elite/faq/XVT190) Non-HDL Cholesterol 153(H) <130 mg/dL (calc) [facility] Comment: For patients with diabetes plus 1 major ASCVD risk ?? factor, treating to a non-HDL-C goal of <100 mg/dL ?? (LDL-C of <70 mg/dL) is considered a therapeutic ?? option. Triglycerides 134 <150 mg/dL [facility] 09/06/2020 10:0 7 AM EST us Jean Name LAB BLOOD ORDERABLES Final Resul t [facility] [address] * THINPREP PAP (06/02/2020 11:13 AM EDT) Clinical Information: SEE COMMENT [facility] [...] historic and ?? current clinical information. ?? Mohs Surgeon: SEE COMMENT [facility] Comment: DMM, CT(ASCP) CT screening location: [address] ??[id number] Interpretation/Resu lt: SEE COMMENT [facility] Comment:Negative for intraep ithelial lesion or malignancy. LMP: SEE COMMENT [facility] Comment:05/16/20 Prev. BX: NONE GIVEN [facility] Prev. PAP: SEE COMMENT [facility] Comment:NONE GIVEN Review Mohs Surgeon: SEE COMMENT [facility] Comment: RMM, CT(ASCP) CT screening location: [address] ??[address] SOURCE: SEE COMMENT [facility] Comment:None given Statement Of Adequacy: SEE COMMENT [facility] Comment: Satisfactory for evaluation. Endocervical/transformation zone component present. 06/02/2020 11:1 3 AM EDT Cindy WILEY LAB PATHOLOGY ORDERABLES Final Result Performing Organization Address [facility] Number [facility] [address] * HPV mRNA E6/E7 (06/02/2020 11:13 AM EDT) HPV nRNA E6/E7 Not Detected Not Detected [facility] Comment: This test was performed using the APTIMA HPV Assay ([employer] ?? This assay detects E6/E7 viral messenger RNA (mRNA) from 14 high-risk HPV types (16,18,31,33,35,39,45,51,52,56,58,59,66,68). ?? The analytical performance characteristics of this assay have been determined by [employer]. The modifications have not been cleared or approved by the FDA. This assay has been validated pursuant to the CLIA regulations and is used for clinical purposes. 06/02/2020 11:1 3 AM EDT Cindy Trinh [facility] LAB BLOOD ORDERABLES [place] l Result Performing Organization Address [facility] de Phone Number [facility] [address] from Last 3 Months or Most Recently Relevant to Health Maintenance Insurance HSN FULL [facility] C3 Care Teams Delivery Crew Member Relationship Specialty Start Date End Date Name, MD Jean [address] [place] [phone] PCP - General Family Medicine 04/28/20
--- OUTSIDE RECORDS SUMMARY | 2025-01-12 11:34 | XMS_ITS | Encounter Summary ---
Author Organization [employer] Address [address] 7[address] [place] [address] Care Team Providers Care Overlay Plastician Name Role Phone Name, Jean DO Primary Care Provider [phone] Reason for Visit * Reason Onset Date Comments Hospital Follow-up 07/29/2024 Encounter Details Date Type Department Care Team ([facility] st Contact Info) Description 07/29/2024 Telephone [facility] [address] [place], [place] [phone] Name, MD Jean [address] [place] [address] Hospital Follow-up Social History Tobacco Use Types [...] regarding scheduling her HDF. Contact pt at [phone] documented in this encounter Plan of Treatment Upcoming Encounters Date Type Department Care Team (Late st Contact Info) Description 02/27/2025 10:15 AM EDT Office Visit [facility] [address] [place] [phone] Name, MD Jean [address] [place] [address] documented as of this encounter Visit Diagnoses Not on filedocumented in this encounter Additional Health Concerns Assessment Noted Time PHQ-9 Depression Total Score: 0 10/09/19 24 9:23 AM EST documented as of this encounter Care Teams Overlay Plastician Relationship Specialty Start Date End Date Name, MD Jean [address] [place] [address] [phone] PCP - General Family Medicine 04/28/20 documented as of this encounter
[2025-01-12 12:12] LABS: TSH reflex Free T4 1.21 uIU/mL (0.32-4.0)
[2025-01-12 12:36] LABS: Folate 8.4 ng/mL (> or = 4.0); Vitamin B12 679 pg/mL (200-900)
[2025-01-13 22:38] LABS: Transglutaminase IgA <1.0 U/mL
[2025-01-16 15:23] LABS: Vitamin D 25-OH, D2 <4 ng/mL; Vitamin D 25-OH, D3 31 ng/mL; Vitamin D 25-OH, Total 31 ng/mL (30-100)
== END 2025-01-12 10:17 | disposition home or self-care (01) ==
LOC: HO.LAB 10:16
PROVIDERS: PCP Internal Medicine Geriatric Medicine; Visit Provider Nurse Practitioner Family
DX: K59.00 Constipation, unspecified (principal); R19.7 Diarrhea, unspecified; R10.9 Unspecified abdominal pain; E55.9 Vitamin D deficiency, unspecified
CPT/HCPCS: 36415; 82306; 82607; 82746; 84443; 86364

== ENCOUNTER 2025-04-01 13:43 | Outpatient (REF) | payer MEDICAID, SELFPAY ==
--- NOTE | ~2025-04-01 | US_ITS ---
EXAMINATION: US PELVIS CLINICAL INFORMATION: Pelvic pain COMPARISON: March 15, 2023 TECHNIQUE: Ultrasound of the pelvis is performed using both transabdominal and transvaginal transducers along with Doppler. Transvaginal imaging is performed due to inadequate visualization transabdominally. FINDINGS: Uterus: The uterus is retroverted and measures 9.4 x 5.1 x 5.2 cm. Has a heterogeneous echotexture. The double wall endometrial thickness is 6 mm. The uterus is smooth in contour and has normal myometrial echogenicity. No visible fibroid. Adnexa: Only left ovary is visualized.. There is normal color flow to the adnexa. There is no ovarian torsion. There is no pelvic ascites or fluid collection. Right ovary was not demonstrated. Left ovary measures 3.8 x 1.5 x 0.9 cm. US/US pelvic and transvaginal IMPRESSION: Heterogeneous appearing uterus raises question of underlying adenomyosis. This was noted on the prior exam as well. Electronically signed by: Duc Obrien MD 04/01/2025 02:54 PM EDT
--- OUTSIDE RECORDS SUMMARY | 2025-04-01 14:23 | XMS_ITS | Encounter Summary ---
Author Organization [email or web address] Address [address] [facility] 7t [place] [address] Care Team Providers Care Director Of Religious Activities Name Role Phone Name, Jean DO Primary Care Provider [phone] Encounter Details Date Type Department Care Team (Latest Contact Info) Description 04/01/2025 Travel Social History Tobacco Use Types Packs/Day Years [...] Care Team (Late st Contact Info) Description 06/02/2025 11:30 AM EDT Office Visit [facility] [address] [place] [phone] Name, MD Jean [address] [place] [phone] documented as of this encounter Visit Diagnoses Not on filedocumented in this encounter Additional Health Concerns Assessment Noted Time PHQ-9 Depression Total Score: 10 025 12:12 PM EST documented as of this encounter Care Teams Director Of Religious Activities Relationship Specialty Start Date End Date Name, MD Jean [address] [place] [place] [phone] PCP - General Family Medicine 04/28/20 documented as of this encounter
--- OUTSIDE RECORDS SUMMARY | 2025-04-01 14:23 | XMS_ITS | Clinical Summary ---
Author Organization [facility] Address [address] [place] [address] Care Team Providers Care Pharmacy Sales Assistant Name Role Phone Tawanna Rodriguez MD Primary Care Provider [phone] Allergies No known active allergies Medications gabapentin [...] - 2023-2 5 season) 2024 04/18/2021, 01/09/2021 Depression Screening 09/10/2024 Pneumococcal Vaccine: 50+ Years (1 of 1 - PCV) 2024 Zoster Vaccines (1 of 2) 2024 Hypertension/CHF/CAD Annual BMP Blood Test 01/09/2025 06/15/2016 Influenza Vaccine (#1) 2025 Cholesterol Screening (Lipid Panel) 09/06/2025 09/06/2020, 02/21/2016 DTaP,Tdap,and Td Vaccines (4 - Td or [...] Results * Cervical Cancer Screening: HPV (01/01/2017) Cervical Cancer Screening: HPV Negative, Abstracted Historical Provider HEALTH MAINTENANCE Final Result * HIV Screening (01/01/2017) Pathologist [facility] HIV Screening Abstracted [facility] Provider HEALTH MAINTENANCE Final Result * Annual BMP Blood Test (06/15/2016) Pathologist Replaced by [facility] Annual BMP Blood Test Abstracted [facility] Provider HEALTH MAINTENANCE Final Result * (ABNORMAL) Lipid panel (02/21/2016) [facility] LDL/HDL Ratio 5(A) 0 - 4 Triglycerides 147 0 - 150 mg/dL Cholesterol 150 0 - 200 mg/dL HDL 32(A) >=40 mg/dL LDL Cholesterol 89 0 - 100 mg/dL Blood Venous blood specimen / Unknown Result [facility] Provider LAB BLOOD ORDERABLES [place] l Result from Last 3 Months or Most Recently Relevant to Health Maintenance Care Teams Pharmacy Sales Assistant Relationship Specialty Start Date End Date Tawanna Rodriguez MD [address] [place] [address] PCP - General Internal Medicine 11/10/15
--- OUTSIDE RECORDS SUMMARY | 2025-04-01 14:23 | XMS_ITS ---
Author Name [facility] Organization Unknown Results Test Name/Text Value Interpretation Date Range Source High Sensitivity Trop(Initial) 3.32 ng/L Normal 11/18/2024 [facility] Bilirubin,Total 0.3 mg/dL Normal 11/18/2024 0.3 - 1.2 [facility] Albumin Level 4.4 g/dL Normal 11/18/2024 3.2 - 4.8 [facility] Chloride 107.0 mmol/L Normal 11/18/2024 98 - 107 [facility] Calcium 9.3 mg/dL Normal 11/18/2024 8.7 - 10.4 [facility] Sodium 140.0 mmol/L Normal 11/18/2024 136 - 145 [facility] Alanine Aminotransferase 26.0 U/L Normal 11/18/2024 10 - 49 [facility] Globulin 3.4 g/dL Normal 11/18/2024 1.9 - 4.1 [facility] Anion Gap 8.8 mmol/L Normal 11/18/2024 5 - 16 [facility] Glucose 103.0 mg/dL Normal 11/18/2024 74 - 106 [facility] BUN 11.1 mg/dL Normal 11/18/2024 9 - 23 [facility] Albumin Globulin Ratio 1.3 % Normal 11/18/2024 1.1 - 2.2 [facility] Aspartate Amino Transferase 22.0 U/L Normal 11/18/2024 0 - 33.9 [facility] Potassium 3.5 mmol/L Normal 11/18/2024 3.5 - 5.1 [facility] Creatinine 0.77 mg/dL Normal 11/18/2024 0.55 - 1.02 [facility] BUN Creatinine Ratio 14.0 % Normal 11/18/2024 7 - 25 [facility] Alkaline Phosphatase 94.0 U/L Normal 11/18/2024 46 - 110 [facility] Carbon Dioxide 24.0 mmol/L Normal 11/18/2024 20 - 31 [facility] Total Protein 7.7 g/dL Normal 11/18/2024 5.7 - 8.2 [facility] Monocytes Percent Auto 8.1 % Normal 11/18/2024 1 - 13 [facility] Mean Corpuscular Hemoglobin 28.8 PG Normal 11/18/2024 27 - 31 [facility] Mean Platelet Volume 12.1 FL Above high normal 11/18/2024 7.4 - 12 [facility] Immature Gran Absolute Auto 0.0 /CUMM Normal 11/18/2024 0 - 0.3 [facility] Basophils Absolute Auto 0.0 /CUMM Normal 11/18/2024 0 - 0 .2 [facility] Red Blood Count 4.59 /CUMM Normal 11/18/2024 4.2 - 5.4 CT [facility] Hemoglobin 13.2 G/DL Normal 11/18/2024 12 - 16 [facility] Mean Corpuscular Volume 88.5 FL Normal 11/18/2024 80 - 96 [facility] Red Cell Distribution Width 13.0 % Normal 11/18/2024 11.5 - 14.5 [facility] Basophils Percent Auto 0.6 % Normal 11/18/2024 0 - 2 [facility] Mean Corpuscular HGB Conc 32.5 G/DL Normal 11/18/2024 32 - 37 [facility] Monocytes Absolute Auto 0.5 /CUMM Normal 11/18/2024 0 - 1 [facility] Granulocytes Percent Auto 65.6 % Normal 11/18/2024 40 - 72 [facility] Eosinophils Percent Auto 1.3 % Normal 11/18/2024 0 - 7 [facility] Platelet Count 195.0 /CUMM Normal 11/18/2024 140 - 440 [facility] Hematocrit 40.6 % Normal 11/18/2024 37 - 47 [facility] Granulocytes Absolute Auto 4.1 /CUMM Normal 11/18/2024 1 - 7 [facility] Eosinophils Absolute Auto 0.1 /CUMM Normal 11/18/2024 0 - 1 [facility] White Blood Count 6.2 /CUMM Normal 11/18/2024 4.8 - 10.8 [facility] Lymphocytes Absolute Auto 1.5 /CUMM Normal 11/18/2024 1 - 4 [facility] Immature Granulocyte Percent 0.3 % Normal 11/18/2024 0 - 1 [facility] Lymphocytes Percent Auto 24.1 % Normal 11/18/2024 20 - 51 [facility] [place] Influenza Type B Detected Abnormal 11/18/2024 [facility] [place] Influenza Type A Not Detected Normal 11/18/2024 [facility] COVID-19 Rapid PCR Not Detected Normal 11/18/2024 [facility] Lactic Acid 1.0 mmol/L Normal 07/20/2024 0.5 - 1.9 [facility] High Sensitivity Troponin 1hr 2.94 ng/L Normal 07/20/2024 [facility] Bacteria Urine Moderate Abnormal 07/20/2024 - [facility] Squamous Epithelial Cell Urine Moderate Normal 07/20/2024 - [facility] Culture Indicated Urine Culture Not Needed Normal 07/20/2024 [facility] Urine Microscopic Indicated Ur Sediment Examed Normal 07/20/2024 [facility] Color Urine Yellow Normal 07/20/2024 - [facility] Clarity Urine Clear Normal 07/20/2024 - [facility] Leukocyte Esterase Urine Negative Normal 07/20/2024 - [facility] Glucose Urine UA Negative Normal 07/20/2024 - [facility] Nitrate Urine Negative Normal 07/20/2024 - [facility] Protein Urine Trace Abnormal 07/20/2024 - [facility] Bilirubin Urine Negative Normal 07/20/2024 - [facility] pH Urine 8.0 Normal 07/20/2024 5 - 8 [facility] Urobilinogen Urine 0.2 EU/dL Normal 07/20/2024 0.1 - 1 [facility] Ketones Urine Negative Normal 07/20/2024 - [facility] Hemoglobin Urine Moderate Abnormal 07/20/2024 - [facility] Specific [place] Urine 1.02 Normal 07/20/2024 1 - 1. 1 [facility] COVID-19 Rapid PCR Not Detected Normal 07/20/2024 [facility] [place] Influenza Type A Not Detected Normal 07/20/2024 [facility] [place] Influenza Type B Not Detected Normal 07/20/2024 [facility] Globulin 3.8 g/dL Normal 07/20/2024 1.9 - 4.1 [facility] Total Protein 8.5 g/dL Above high normal 07/20/2024 5.7 - 8 .2 [facility] Bilirubin,Total 0.7 mg/dL Normal 07/20/2024 0.3 - 1.2 [facility] Chloride 105.0 mmol/L Normal 07/20/2024 98 - 107 [facility] Alkaline Phosphatase 129.0 U/L Above high normal 07/20/2024 46 - 110 [facility] Aspartate Amino Transferase 27.0 U/L Normal 07/20/2024 0 - 33.9 [facility] Alanine Aminotransferase 30.0 U/L Normal 07/20/2024 10 - 49 [facility] Albumin Level 4.7 g/dL Normal 07/20/2024 3.2 - 4.8 [facility] Anion Gap 8.3 mmol/L Normal 07/20/2024 5 - 16 [facility] Calcium 9.8 mg/dL Normal 07/20/2024 8.7 - 10.4 [facility] Albumin Globulin Ratio 1.2 % Normal 07/20/2024 1.1 - 2.2 [facility] Sodium 140.0 mmol/L Normal 07/20/2024 136 - 145 [facility] BUN 8.5 mg/dL Below low normal 07/20/2024 9 - 23 [facility] Creatinine 0.81 mg/dL Normal 07/20/2024 0.55 - 1.02 [facility] Carbon Dioxide 27.0 mmol/L Normal 07/20/2024 20 - 31 [facility] Potassium 4.0 mmol/L Normal 07/20/2024 3.5 - 5.1 [facility] Glucose 109.0 mg/dL Above high normal 07/20/2024 74 - 106 [facility] BUN Creatinine Ratio 11.0 % Normal 07/20/2024 7 - 25 [facility] High Sensitivity Trop(Initial) 3.3 ng/L Normal 07/20/2024 [facility] Mean Platelet Volume 11.9 FL Normal 07/20/2024 7.4 - 12 [facility] Monocytes Absolute Auto 0.8 /CUMM Normal 07/20/2024 0 - 1 [facility] Hematocrit 44.5 % Normal 07/20/2024 37 - 47 [facility] Hemoglobin 14.5 G/DL Normal 07/20/2024 12 - 16 [facility] Red Cell Distribution Width 12.7 % Normal 07/20/2024 11.5 - 14.5 [facility] Immature Gran Absolute Auto 0.1 /CUMM Normal 07/20/2024 0 - 0.3 [facility] Immature Granulocyte Percent 0.4 % Normal 07/20/2024 0 - 1 [facility] Mean Corpuscular Hemoglobin 29.3 PG Normal 07/20/2024 27 - 31 [facility] Lymphocytes Absolute Auto 2.5 /CUMM Normal 07/20/2024 1 - 4 [facility] Mean Corpuscular HGB Conc 32.6 G/DL Normal 07/20/2024 32 - 37 [facility] Granulocytes Percent Auto 78.4 % Above high normal 07/20/2024 40 - 72 [facility] Granulocytes Absolute Auto 13.0 /CUMM Above high normal 07/20/2024 1 - 7 [facility] Basophils Percent Auto 0.4 % Normal 07/20/2024 0 - 2 [facility] White Blood Count 16.6 /CUMM Above high normal 07/20/2024 4. 8 - 10.8 [facility] Mean Corpuscular Volume 89.9 FL Normal 07/20/2024 80 - 96 [facility] Monocytes Percent Auto 4.6 % Normal 07/20/2024 1 - 13 [facility] Eosinophils Absolute Auto 0.2 /CUMM Normal 07/20/2024 0 - 1 [facility] Basophils Absolute Auto 0.1 /CUMM Normal 07/20/2024 0 - 0 .2 [facility] Platelet Count 247.0 /CUMM Normal 07/20/2024 140 - 440 [facility] Lymphocytes Percent Auto 14.8 % Below low normal 07/20/2024 20 - 51 [facility] Red Blood Count 4.95 /CUMM Normal 07/20/2024 4.2 - 5.4 [facility] Eosinophils Percent Auto 1.4 % Normal 07/20/2024 0 - 7 [facility] History of Medication Use Medication Directions Dispensed Refills Start Date End Date Stat Methylprednisolone (Medrol (Romel)) 4 mg tablets,dose pack 08/23/2023 active Naproxen 250 mg tablet 08/23/2023 active Polymyxin B Sulf-Trimethoprim 10,000 unit- 1 mg/mL drops 02/09/2023 activ e Amoxicillin-Pot Clavulanate 875-125 mg tablet 02/08/2023 07/26/2024 active Albuterol Sulfate 90 mcg/actuation HFA aerosol inhaler 02/08/2023 active Ondansetron 4 mg tablet,disintegrating 02/08/2023 act john Problems Problem Status Onset Date Problem Type Date of Resoluti on Source Pneumoperitoneum active ProblemAct [facility] Colitis active ProblemAct [facility] Encounters Encounter Type Encounter Reason Primary Diagnosis Location Date Emergency biba dyspnea Dyspnea, unspecified [facility] 11[facility]24 [facility] 08/05/2024 Amb[facility] 07/28/2024 [facility]2024 Inpatient Diverticulitis with perforation Unspecified abdominal pain [facility] 07/20/2024 Care Team Organization Name Specialty Phone Email Start Date End Davis lopez [facility] Physician Unknown Primary Care 03/24/2025 [facility] Physician Unknown Primary Care
[2025-04-01 15:47] LABS: Hematocrit 38.4 % (37.0-47.0); Hemoglobin 12.6 g/dl (12.0-16.0); Mean Corpuscular HGB Conc 32.8 g/dl (31.0-35.0); Mean Corpuscular Hemoglobin 29.0 pg (27.0-33.0); Mean Corpuscular Volume 88.5 fL (80.0-98.0); NRBC Abs Auto 0.000 X10*3/uL (0.0-0.012); NRBC Pct Auto 0.0 /100WBC (0.0-0.2); Platelet Count 199 X10*3/uL (160-400); Red Blood Count 4.34 X10*6/uL (4.20-5.50); White Blood Count 8.5 X10*3/uL (4.8-10.8)
[2025-04-01 16:11] LABS: Alanine Aminotransferase 21 U/L (0-31); Albumin Level 4.0 g/dL (3.5-5.0); Alkaline Phosphatase 93 U/L (39-117); Anion Gap 10 (12-20); Aspartate Amino Transferase 17 U/L (5-31); Blood Urea Nitrogen 14 mg/dL (9-16); Calcium 9.0 mg/dL (8.4-10.2); Carbon Dioxide 25 mmol/L (22-29); Chloride 108 mmol/L (96-108); Estimated Glomerular Filt Rate > 60; Potassium 3.7 mmol/L (3.3-5.1); Sodium 139 mmol/L (135-145); Total Protein 7.3 g/dL (6.5-8.0)
[2025-04-01 16:32] LABS: Appearance Urine Clear; Glucose Urine UA Negative (Negative); PH 5.5 (5.0-9.0); Specific Gravity - Urine 1.010 (1.005-1.025); UMIC TRIGGER UACC YES
[2025-04-01 20:16] LABS: Bacterial Vaginosis PCR NEGATIVE (Negative); Candida Group PCR DETECTED (Not Detect); Candida glab krusei PCR NOT DETECTED (Not Detect); Trichomonas vaginalis PCR NOT DETECTED (Not Detect)
[2025-04-01 21:03] LABS: CT PCR NOT DETECTED (Not Detect.); NG PCR NOT DETECTED (Not Detect.)
== END 2025-04-01 13:44 | disposition home or self-care (01) ==
LOC: HO.US 13:43
PROVIDERS: Visit Provider Student in an Organized Health Care Education/Training Program
DX: Z11.3 Encounter for screening for infections with a predominantly sexual mode of transmission (principal); R10.2 Pelvic and perineal pain
CPT/HCPCS: 36415; 76830; 76856; 80053; 81001; 81515; 85027; 85652; 86140; 87491; 87563; 87591

== ENCOUNTER → 2025-04-01 13:57 | Outpatient (BNV) | payer MEDICAID, SELFPAY | PROVIDERS: Visit Provider Radiology Diagnostic Radiology | DX: R10.2 Pelvic and perineal pain (principal) | CPT/HCPCS: 76830; 76856 ==

== ENCOUNTER 2025-04-14 08:45 | Outpatient (AMB) | payer MEDICAID, SELFPAY ==
--- NOTE | 2025-04-14 08:46 | A.OFFVIS_ITS ---
Vital Signs 04/14/25 08:50 Height 5 ft Weight 192 lb BMI 37.5 BP 136/80 Blood Pressure Location Rt brachial Position Sitting Pulse 60 Pulse Source Pulse Oximeter Pulse Oximetry (%) 100 Oxygen Delivery Method Room Air Intake Visit Reasons: 3 months f/u Intake Note: Est pt for mgmt of chronic abd pain, labs done. CC; Pt denies any changes or new sx since last visit. Lot Boss Required: No Accompanied by: Self / Same As Patient Allergies No Known Allergies Allergy (Verified 04/14/25 08:55) HPI HPI 3 months f/u: Details: LAST VISIT: Hemorrhoids Colon adenoma Rectal bleeding Postprandial abdominal bloating GERD (gastroesophageal reflux disease) Postprandial epigastric pain Plan Discussed with patient avoiding dietary triggers and lid I study. Staying upright for minimum 3 hours after meals discussed with patient. Discussed with her also try a low FODMAP diet. List of food recommended as well as list of food to avoid given to patient. Patient will start taking pantoprazole in the morning half an hour before breakfast. Patient will get [id number] fiber supplements and take it daily. Will check vitamin-D, B12, folate thyroid study as well as transglutaminase to rule out celiac. Patient reports epigastric pain. She will most likely be sent for upper endoscopy if she continues symptoms. Possibly colonoscopy if she will continue with the symptoms. To ensure that the patient is emptying her bowels completely she will start taking Senokot daily. Patient will follow-up in 2-3 months, sooner basis. She is agreeable to this plan and verbalizes understanding of instructions. She was given the opportunity to ask questions and all questions answered. ? Thank you for allowing me to participate in her care Orders Vitamin D 25-OH (D2 and D3) Today E55.9 Vitamin B12 and Folate Today R19.7 TSH reflex Free T4 Today K59.00 Transglutaminase IgA Today R10.9 New sennosides (Natural Senna Laxative) 17.2 mg (2 x 8.6 mg) PO BEDTIME 60 tabs 3RF constipation K59.00 pantoprazole take one tablet half an hour before breakfast 40 mg PO DAILY 30 tabs 2RF K21.9 TODAY'S VISIT Patient is here today for follow-up and to discuss lab results. Patient reports that since last visit she has been doing well. Occasional abdominal bloating, however states that overall she is feeling better. She is moving her bowels and using Senokot as needed. Denies melena, hematochezia, unintentional weight loss or ribbon like stools. Patient is taking pantoprazole every morning and symptoms of acid reflux are suppressed. Occasional epigastric pain or postprandial abdominal bloating depending on what she eats. Patient denies dyspepsia, dysphagia or odynophagia [facility] Medical History Impaired hearing Arthritis Back pain Lab test positive for detection of COVID-19 virus Menorrhagia Rectal bleeding Surgical History History of suburethral sling procedure History of colonoscopy Hx of oral surgery Hx of cosmetic plastic surgery H/O breast augmentation Family History Maternal Grandfather Colon cancer Maternal Aunt Ovarian cancer Family/Other Primary bone cancer Maternal Grandmother Throat cancer Stroke Dementia Sister Lupus Anemia Mother Stroke Asthma Dementia Parkinsons disease Social History Alcohol intake: current Alcohol intake frequency: holidays/special occasions only Patient Tobacco Use Status: Current someday Tobacco user Tobacco use type: Cigarette Years Smoked: 20 Substance Use Type: Marijuana Review of Systems Const Denies weight gain and Denies weight loss ENT Reports no additional complaints, Denies dysphagia and Denies odynophagia Card Reports no additional complaints Resp Reports no additional complaints GI Denies abdominal pain, Denies belching, Denies melena, Reports bloating, Reports hematochezia (Occasional), Denies change in bowel habits, Reports constipation, Denies dysphagia, Denies excessive flatus, Denies dyspepsia, Denies heartburn, Denies diarrhea, Reports loose stools, Denies nausea, Denies odynophagia and Denies vomiting Reports no additional complaints Musc Reports no additional complaints Neuro Reports no additional complaints Psych Reports no additional complaints Endo Reports no additional complaints Physical Exam Vital Signs: Last Vital Signs Pulse 60 04/14/25 08:50 BP 136/80 04/14/25 08:50 Pulse Ox 100 04/14/25 08:50 Oxygen Delivery Method Room Air 04/14/25 08:50 BMI result Body Mass Index 37.5 Const General: healthy appearing, no acute distress and well developed Nutritional Appearance: well nourished Orientation/consciousness: patient oriented x3 Resp Effort & Inspection: normal respiratory effort, able to speak in complete sentences, no tracheal deviation and symmetric chest movement Auscultation: clear to auscultation bilaterally Cardio Rate: regular rate GI Inspection: Yes normal to inspection and No distended Palpation (GI): Soft to palpation, not firm, nontender and No hepatosplenomegaly present Auscultation: normal bowel sounds General: Yes no CVA tenderness Back/Spine/Pelvis Back: no CVA tenderness Skin General skin exam: elasticity normal, turgor normal and dry skin Neuro General: patient oriented x3 Psych Appearance: grossly normal Mental Status: mental status grossly normal Assessment & Plan Assessment & Plan (1) Rectal bleeding: Code(s): K62.5 - Hemorrhage of anus and rectum Category: Medical (2) Hemorrhoids: Code(s): K64.9 - Unspecified hemorrhoids Category: Medical Qualifiers: Hemorrhoid type: unspecified Qualified Code(s): K64.9 - Unspecified hemorrhoids (3) Colon adenoma: Code(s): D12.6 - Benign neoplasm of colon, unspecified Category: Medical (4) Postprandial abdominal bloating: Code(s): R14.0 - Abdominal distension (gaseous) (5) Gastroesophageal reflux disease: Code(s): K21.9 - Gastro-esophageal reflux disease without esophagitis Qualifiers: Esophagitis presence: esophagitis presence not specified Qualified Code(s): K21.9 - Gastro-esophageal reflux disease without esophagitis (6) Postprandial epigastric pain: Code(s): R10.13 - Epigastric pain Plan Patient will continue taking pantoprazole every morning. Avoid dietary triggers and late night snacking. Staying upright for minimum 3 hours after meals discussed with patient. Continue senna as needed. Increase fiber, fluid intake and activity to promote better bowel motility. Patient will follow-up in 3 months. She will call our office if she will have any GI concerning symptoms. She is agreeable to this plan and verbalizes understanding of instructions. She was given the opportunity to ask questions and all questions answered. Thank you for allowing me to participate in her care Coding Level of Care Code Est Pt Level 3 (72279) Complex EM visit Add On G2211 Diagnoses Rectal bleeding K62.5 Hemorrhoids, unspecified hemorrhoid type K64.9 Hemorrhoid type: unspecified Colon adenoma D12.6 Postprandial abdominal bloating R14.0 Gastroesophageal reflux disease, unspecified whether esophagitis present K21.9 Esophagitis presence: esophagitis presence not specified Postprandial epigastric pain R10.13 Time Spent (min) 30 Comment 20 minutes spent with patient and additional 10 minutes spent reviewing her records
[2025-04-14 08:50] VITALS: BP 136/80; PULSE 60; O2SAT 100; BMI 37.5
== END 2025-04-14 09:39 | disposition home or self-care (01) ==
LOC: HO.HGI 08:46
PROVIDERS: PCP Internal Medicine Geriatric Medicine; Visit Provider Nurse Practitioner Family
DX: K62.5 Hemorrhage of anus and rectum (principal); K64.9 Unspecified hemorrhoids; D12.6 Benign neoplasm of colon, unspecified; R14.0 Abdominal distension (gaseous); K21.9 Gastro-esophageal reflux disease without esophagitis; R10.13 Epigastric pain
CPT/HCPCS: 99213

== ENCOUNTER → 2025-04-14 08:45 | Outpatient (BNVA) | payer MEDICAID, SELFPAY | PROVIDERS: PCP Internal Medicine Geriatric Medicine; Visit Provider Nurse Practitioner Family | DX: K62.5 Hemorrhage of anus and rectum (principal); K64.9 Unspecified hemorrhoids; D12.6 Benign neoplasm of colon, unspecified; R14.0 Abdominal distension (gaseous); K21.9 Gastro-esophageal reflux disease without esophagitis; R10.13 Epigastric pain | CPT/HCPCS: 99212 ==

== ENCOUNTER 2025-07-15 08:55 | Outpatient (AMB) | payer MEDICAID, SELFPAY ==
--- NOTE | 2025-07-15 09:00 | MHC.OFFVIS ---
Vital Signs 07/15/25 09:06 Height 5 ft Weight 192 lb BMI 37.5 BP 130/88 Blood Pressure Location Rt brachial Position Sitting Pulse 62 Pulse Source Pulse Oximeter Pulse Oximetry (%) 99 Oxygen Delivery Method Room Air Intake Visit Reasons: GERD mgmt. 3 mos FUV. Intake Note: Est pt for mgmt of chronic abd pain CC; Pt denies any new GI concerns or sx at this time. Confirms that her current Rx are working as intended and w/o complication. Manufacturing Executive Required: No Accompanied by: Self / Same As Patient Allergies No Known Allergies Allergy (Verified 07/15/25 09:00) HPI HPI GERD mgmt. 3 mos FUV.: Details: LAST VISIT: Rectal bleeding Hemorrhoids Colon adenoma Postprandial abdominal bloating Gastroesophageal reflux disease Postprandial epigastric pain Plan Patient will continue taking pantoprazole every morning. Avoid dietary triggers and late night snacking. Staying upright for minimum 3 hours after meals discussed with patient. Continue senna as needed. Increase fiber, fluid intake and activity to promote better bowel motility. Patient will follow-up in 3 months. She will call our office if she will have any GI concerning symptoms. She is agreeable to this plan and verbalizes understanding of instructions. She was given the opportunity to ask questions and all questions answered. ? TODAY'S VISIT Patient is here today for follow-up. Patient reports that she has been doing better. Able to move her bowels taking senna daily. She is drinking more fluids and eating more fiber. Her symptoms of acid reflux have improved, however feels like pantoprazole has been working, however occasionally she will still have acid reflux. Patient is trying to avoid certain dietary triggers. Denies dyspepsia, dysphagia or odynophagia. Denies melena, hematochezia, unintentional weight loss or ribbon like stools. Patient denies any abdominal pain or discomfort. Reports occasional abdominal bloating depending on what she eats. [facility] Medical History Impaired hearing Arthritis Back pain Lab test positive for detection of COVID-19 virus Menorrhagia Rectal bleeding Surgical History History of suburethral sling procedure History of colonoscopy Hx of oral surgery Hx of cosmetic plastic surgery H/O breast augmentation Family History Maternal Grandfather Colon cancer Maternal Aunt Ovarian cancer Family/Other Primary bone cancer Maternal Grandmother Throat cancer Stroke Dementia Sister Lupus Anemia Mother Stroke Asthma Dementia Parkinsons disease Social History Alcohol intake: current Alcohol intake frequency: holidays/special occasions only Patient Tobacco Use Status: Current someday Tobacco user Tobacco use type: Cigarette Years Smoked: 20 Substance Use Type: Marijuana Review of Systems Const Denies weight gain and Denies weight loss ENT Reports no additional complaints, Denies dysphagia and Denies odynophagia Card Reports no additional complaints Resp Reports no additional complaints GI Denies abdominal pain, Denies belching, Denies melena, Reports bloating, Denies hematochezia, Denies change in bowel habits, Denies constipation, Denies dysphagia, Denies excessive flatus, Denies dyspepsia, Reports heartburn, Denies diarrhea, Reports loose stools, Denies nausea, Denies odynophagia and Denies vomiting Reports no additional complaints Musc Reports no additional complaints Neuro Reports no additional complaints Psych Reports no additional complaints Endo Reports no additional complaints Physical Exam Vital Signs: Last Vital Signs Pulse 62 07/15/25 09:06 BP 130/88 07/15/25 09:06 Pulse Ox 99 07/15/25 09:06 Oxygen Delivery Method Room Air 07/15/25 09:06 BMI result Body Mass Index 37.5 Const General: healthy appearing, no acute distress and well developed Nutritional Appearance: well nourished Orientation/consciousness: patient oriented x3 Resp Effort & Inspection: normal respiratory effort, able to speak in complete sentences, no tracheal deviation and symmetric chest movement Auscultation: clear to auscultation bilaterally Cardio Rate: regular rate GI Inspection: Yes normal to inspection and No distended Palpation (GI): Soft to palpation, not firm, nontender and No hepatosplenomegaly present Auscultation: normal bowel sounds General: Yes no CVA tenderness Back/Spine/Pelvis Back: no CVA tenderness Skin General skin exam: elasticity normal, turgor normal and dry skin Neuro General: patient oriented x3 Psych Appearance: grossly normal Mental Status: mental status grossly normal Assessment & Plan Assessment & Plan (1) Hemorrhoids: Code(s): K64.9 - Unspecified hemorrhoids Category: Medical Qualifiers: Hemorrhoid type: unspecified Qualified Code(s): K64.9 - Unspecified hemorrhoids (2) Postprandial abdominal bloating: Code(s): R14.0 - Abdominal distension (gaseous) (3) Gastroesophageal reflux disease: Code(s): K21.9 - Gastro-esophageal reflux disease without esophagitis Qualifiers: Esophagitis presence: esophagitis presence not specified Qualified Code(s): K21.9 - Gastro-esophageal reflux disease without esophagitis (4) Postprandial epigastric pain: Code(s): R10.13 - Epigastric pain (5) Constipation: Code(s): K59.00 - Constipation, unspecified Qualifiers: Constipation type: slow transit constipation Qualified Code(s): K59.01 - Slow transit constipation Plan Patient will stop pantoprazole and start Nexium. Avoid dietary triggers in late night snacking. Staying upright for minimum 3 hours after meals discussed with patient. Patient will continue taking senna. Increase fiber in her diet. Patient was also encouraged to increase fluid intake and activity to promote bowel motility. Patient was encouraged to call our office with any GI concerning symptoms if follow-up in 4 months, sooner on as needed basis. Patient is agreeable to this plan and verbalizes understanding of instructions. She was given the opportunity to ask questions and all questions answered. Thank you for allowing me to participate in her care Medications: New esomeprazole magnesium (Nexium) 40 mg PO DAILY 30 caps 3RF K21.9 - Gastro-esophageal reflux disease without esophagitis Refilled sennosides (senna) 17.2 mg (2 x 8.6 mg) PO BEDTIME 60 tabs 3RF for constipation K59.00 - Constipation, unspecified Coding Level of Care Code Est Pt Level 4 (84568) Complex visit Add On G2211 Diagnoses Hemorrhoids, unspecified hemorrhoid type K64.9 Hemorrhoid type: unspecified Postprandial abdominal bloating R14.0 Gastroesophageal reflux disease, unspecified whether esophagitis present K21.9 Esophagitis presence: esophagitis presence not specified Postprandial epigastric pain R10.13 Slow transit constipation K59.01 Constipation type: slow transit constipation Time Spent (min) 35 Comment 25 minutes spent with patient and additional 10 minutes spent reviewing her records
[2025-07-15 09:06] VITALS: BP 130/88; PULSE 62; O2SAT 99; BMI 37.5
--- OUTSIDE RECORDS SUMMARY | 2025-07-15 09:26 | XMS_ITS | Encounter Summary ---
Author Organization [employer] Address [address] [place] [address] 7 [place] [address] Care Team Providers Care Seed Cleaner Operator Name Role Phone Name, Jean DO Primary Care Provider [phone] Encounter Details Date Type Department Care Team ([facility] st Contact Info) Description 02/19/2023 Abstract [facility] MEDICINE [address] [place], [place] [phone] Name, MD Jean [address] [place] [address] Social History Tobacco Use Types Packs/Day Years [...] as of this encounter Plan of Treatment Not on file documented as of this encounter Visit Diagnoses Not on filedocumented in this encounter Care Teams Seed Cleaner Operator Relationship Specialty Start Date End Date Name, MD Jean [address] [place], [place] [phone] PCP - General Family Medicine 04/28/20 documented as of this encounter
--- OUTSIDE RECORDS SUMMARY | 2025-07-15 09:26 | XMS_ITS | Encounter Summary ---
Author Organization [employer] Address [address] [facility] [address] [place] [address] Care Team Providers Care Engineering Operator Name Role Phone Name, Jean DO Primary Care Provider [phone] Reason for Visit * Reason Onset Date Comments Hospital Follow-up 07/29/2024 Encounter Details Date Type Department Care Team ([facility] st Contact Info) Description 07/29/2024 Telephone [facility] MEDICINE [address] [place], [place] [phone] Name, MD Jean [address] [place] [address] Hospital Follow-up Social History Tobacco Use Types [...] regarding scheduling her HDF. Contact pt at [phone] documented in this encounter Plan of Treatment Not on file documented as of this encounter Visit Diagnoses Not on filedocumented in this encounter Additional Health Concerns Assessment Noted Time PHQ-9 Depression Total Score: 0 10/09/19 24 9:23 AM EST documented as of this encounter Care Teams Engineering Operator Relationship Specialty Start Date End Date Name, MD Jean [address] [place] [address] PCP - General Family Medicine 04/28/20 documented as of this encounter
--- OUTSIDE RECORDS SUMMARY | 2025-07-15 09:26 | XMS_ITS | Encounter Summary ---
Author Organization [employer] Address [address] [facility] [address] [place] [address] Care Team Providers Care Manager Hair Name Role Phone Name, Jean DO Primary Care Provider [phone] Reason for Visit * Reason Onset Date Comments Hospital Follow-up 07/28/2024 Encounter Details Date Type Department Care Team ([facility] st Contact Info) Description 07/28/2024 Telephone [facility] MEDICINE [address] [place], [place] [phone] Name, MD Jean [address] [place] [address] Hospital Follow-up Social History Tobacco Use Types [...] from pt requesting a HDF appt. Hospital: [facility] Date of admission: 07/20/2024 Discharge date: 07/26/2024 Diagnosed: Diverticulitis documented in this encounter Plan of Treatment Not on file documented as of this encounter Visit Diagnoses Not on filedocumented in this encounter Additional Health Concerns Assessment Noted Time PHQ-9 Depression Total Score: 0 10/09/19 24 9:23 AM EST documented as of this encounter Care Teams Manager Hair Relationship Specialty Start Date End Date Name, MD Jean [address] [place] [address] PCP - General Family Medicine 04/28/20 documented as of this encounter
--- OUTSIDE RECORDS SUMMARY | 2025-07-15 09:26 | XMS_ITS | Clinical Summary ---
Author Organization [employer] Address [address] [place] [address] [address] [place] [address] Care Team Providers Care Alteration Tailor Name Role Phone Name, Jean DO Primary Care Provider [phone] Allergies No known active allergies Medications * This document contains information received from the source organization and may not represent a complete record from that organization. albuterol 108 (90 Base) MCG/ACT inhaler Inhale 2 puffs every 6 (six) hours if needed for wheezing. 18 g 11 3 Active Blood Pressure kit Use once a day 1 kit 4 Active SUMAtriptan (Imitrex) 25 MG tablet Take 1 tablet (25 mg) by mouth 1 (one) time if needed for migraine for up to 1 dose. 9 tablet 1 4 Active trospium (Sanctura) 20 MG tablet Take 1 tablet by mouth in the morning and 1 tablet in the evening. 4 Active Vibegron (Gemtesa) 75 MG tablet Take 1 tablet by mouth Once per day. 4 Active docusate sodium (Colace) 100 MG capsule Take 1 capsule (100 mg) by mouth 2 times daily. 60 capsule 2 5 04/01/20 26 Active losartan-hydroCH LOROthiazide (Hyzaar) 50-12.5 MG tablet Take 1 tablet by mouth Once per day. 30 tablet 11 5 06/02/20 26 Active propranolol (Inderal) 40 MG tabletIndication s:Hypertension, unspecified type Take 1 tablet (40 mg) by mouth 2 times daily. 60 tablet 2 5 Active celecoxib (CeleBREX) 200 MG capsule Take 1 capsule (200 mg) by mouth if needed in the morning and at bedtime for mild pain for up to 20 days. 40 capsule 5 06/22/20 Active Problems Problem Noted Date Diagnosed Date [...] process grief. She decline referrals, but accepted [facility] Integration follow up call. Decreased hearing 08/19/2022 [...] Encounters Date Type Department Care Team Description 06/02/2025 11:30 AM EDT Office Visit [facility] MED[facility]INE [address] [place] [address] Name, MD Jean Palpitations (Primary Dx); Hypertension, unspecified type 06/02/2025 Travel 06/01/2025 Telephone [facility] [address] [place] [address] Cal Umana [place] chart prep 05/26/2025 Travel from Last 3 Months Immunizations Immunization Administration Dates Next Due Hep B, adult [...] Sign Reading Time Taken Comments Blood Pressure 146/78 06/02/2025 11:39 AM EDT Pulse 65 06/02/2025 11:39 AM EDT Temperature 36.4 C (97.6 F) 06/02/2025 11:39 AM EDT Respiratory Rate 18 06/02/2025 11:39 AM EDT Oxygen Saturation 99% 06/02/2025 11:39 AM EDT Inhaled Oxygen Concentration - - Weight 87.4 kg (192 lb 9.6 oz) 06/02/2025 11:39 AM EDT Height 154.9 cm (5' 1 ) 06/02/2025 11:39 AM EDT Body Mass Index 36.39 06/02/2025 11:39 AM EDT Plan of Treatment Health Maintenance Due Date Last Done Comments CT Colonography 1974 FIT DNA/Cologuard 1974 FIT 1974 FOBT 1974 HIV Screening 1974 Sigmoidoscopy 1974 Family Planning (PISQ) 1989 Hepatitis C Screening 1992 Hepatitis B Vaccines (3 of 3 - 19+ 3-dose series) 04/02/2017 10/31/2016, 10/03/2016 Mammogram 08/22/2023 08/22/2021, 08/22/2021, 08/22/2021 Pneumococcal Vaccine: 50+ Years (1 of 1 - PCV) 2024 Zoster Vaccines (1 of 2) 2024 COVID-19 Vaccine (3 - 2024-2 6 season) 2025 04/18/2021, 01/09/2021 Influenza Vaccine (#1) 2025 Depression Monitoring 05/14/2025 11/11/2024 , 11/11/2024 Cervical Cancer Screening 06/02/2025 HPV/Cotest 06/02/2025 06/02/2020 Pap Smear 06/02/2025 06/02/2020 Lipid Panel 09/06/2025 09/06/2020 Colonoscopy 09/29/2025 09/29/2020 Colorectal Cancer Screening 09/29/2025 Alcohol/Substance Use Screening 11/11/2025 11/11/2024 SDOH Screening 11/11/2025 11/11/2024 Disability Screening 05/26/2026 05/26/2025 Tobacco Screening 06/02/2026 06/02/2025 DTaP/Tdap/Td Vaccines (4 - T d or [...] Procedure: Mammography Report 1 Procedure Note Provider, Dianne, - 12/03/2022 Refer to the Notes tab for result details Legacy Procedure: Mammography Report 1 Jean Name IMMarco BI PROCEDURES Final Result * Colonoscopy (09/29/2020) Colonoscopy PERFORMED Narrative Xenia Castillo - 09/29/2020 Recommended 5 year follow up Historical Provider HEALTH MAINTENANCE Edited Result - Final * (ABNORMAL) LIPID PANEL, STANDARD (09/06/2020 10:07 AM EST) Chol/HDLC Ratio 5.4(H) <5.0 (calc) [facility] Cholesterol, Total 188 <200 mg/dL [facility] HDL Cholesterol 35(L) > OR = 50 mg/dL [facility] LDL Cholesterol 128(H) mg/dL (calc) [facility] Comment: Reference range: <100 Desirable range <100 mg/dL for primary prevention; <70 mg/dL for patients with CHD or diabetic patients with > or = 2 CHD risk factors. LDL-C is now calculated using the Aldair-Antonieta calculation, which is a validated novel method providing better accuracy than the Friedewald equation in the estimation of LDL-C. Aldair SS et al. ABBY. 2013;310(19): 7465-2181 (http://education.GroupTalent.Hashdoc/faq/GBD671) Non-HDL Cholesterol 153(H) <130 mg/dL (calc) [facility] Comment: For patients with diabetes plus 1 major ASCVD risk factor, treating to a non-HDL-C goal of <100 mg/dL (LDL-C of <70 mg/dL) is considered a therapeutic option. Triglycerides 134 <150 mg/dL [facility] 09/06/2020 10:0 7 AM EST us Jean Dubois MD LAB BLOOD ORDERABLES Final Resul t Performing Organization Address [facility]/ZIP Co de Phone Number [facility] [address] [place] [address], * THINPREP PAP (06/02/2020 11:13 AM EDT) Clinical Information: SEE COMMENT [facility] Comment:None given COMMENT SEE COMMENT [facility] Comment: EXPLANATORY NOTE: The Pap is a screening test for cervical cancer. It is not a diagnostic test and is subject to false negative and false positive results. It is most reliable when a satisfactory sample, regularly obtained, is submitted with relevant clinical findings and history, and when the Pap result is evaluated along with historic and current clinical information. Job Site Supervisor: SEE COMMENT [facility] Comment: DMM, CT(ASCP) CT screening location: [place] [address] Interpretation/Resu lt: SEE COMMENT [facility] Comment:Negative for intraep ithelial lesion or malignancy. LMP: SEE COMMENT [facility] Comment:05/16/20 Prev. BX: NONE GIVEN [facility] Prev. PAP: SEE COMMENT [facility] Comment:NONE GIVEN Review Job Site Supervisor: SEE COMMENT [facility] Comment: RMM, CT(ASCP) CT screening location: [place] [address] SOURCE: SEE COMMENT [facility] Comment:None given Statement Of Adequacy: SEE COMMENT [facility] Comment: Satisfactory for evaluation. Endocervical/transformation zone component present. 06/02/2020 11:1 3 AM EDT us Cindy Trinh CNM LAB PATHOLOGY ORDERABLES Final Result Performing Organization Address [facility]/ZIP Co de Phone Number [facility] [address] [place] [address], * HPV mRNA E6/E7 (06/02/2020 11:13 AM EDT) HPV nRNA E6/E7 Not Detected Not Detected [facility] Comment: This test was performed using the APTIMA HPV Assay ([employer] This assay detects E6/E7 viral messenger RNA (mRNA) from 14 high-risk HPV types (16,18,31,33,35,39,45,51,52,56,58,59,66,68). The analytical performance characteristics of this assay have been determined by [employer]. The modifications have not been cleared or approved by the FDA. This assay has been validated pursuant to the CLIA regulations and is used for clinical purposes. 06/02/2020 11:1 3 AM EDT us Cindy Trinh [facility] LAB BLOOD ORDERABLES [place] buck Result [facility] [address] from Last 3 Months or Most Recently Relevant to Health Maintenance [place] [address] [place] [address] C3 Care Teams Alteration Tailor Relationship Specialty Start Date End Date Name, MD Jean [address] [place] [address] PCP - General Family Medicine 04/28/20
--- OUTSIDE RECORDS SUMMARY | 2025-07-15 09:26 | XMS_ITS | Clinical Summary ---
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 Immunizations Immunization Administration Dates Next Due Tdap Tetanus diptheria [...] Health Maintenance Due Date Last Done Comments Colorectal Cancer Screening: Colonoscopy 1974 Hepatitis B Vaccines (3 of 3 - 19+ 3-dose series) 04/02/2017 10/31/2016, 10/03/2016 Cervical Cancer Screening: P ap Smear 01/02/2020 01/01/2017, 01/01/2017 Hepatitis C Screening 08/08/2022 Social Influencers of Health Screening 08/08/2022 Breast Cancer Screening 08/22/2023 08/22/2021 Depression Screening 09/10/2024 Pneumococcal Vaccine: 50+ Years (1 of 1 - PCV) 2024 Zoster Vaccines (1 of 2) 2024 Hypertension/CHF/CAD Annual BMP Blood Test 01/09/2025 06/15/2016 COVID-19 Vaccine (3 - 2024-2 6 season) 2025 04/18/2021, 01/09/2021 Influenza Vaccine (#1) 2025 Cholesterol Screening (Lipid Panel) 09/06/2025 09/06/2020, 02/21/2016 DTaP,Tdap,and Td Vaccines (4 - Td or Tdap) 09/28/2026 09/28/2016, 07/21/2016, 06/07/2012 RSV Immunization Adult Patients (1 - 1-dose 75+ series) 2049 MMR Vaccines Aged Out 10/31/2016, 10/03/2016 No [...] * Cervical Cancer Screening: HPV (01/01/2017) Pathologist [facility] Cervical Cancer Screening: HPV Negative, Abstracted Historical Provider HEALTH MAINTENANCE Final Result * HIV Screening (01/01/2017) [facility] HIV Screening Abstracted [facility] Provider HEALTH MAINTENANCE Final Result * Annual BMP Blood Test (06/15/2016) Pathologist [facility] Annual BMP Blood Test Abstracted [facility] Provider HEALTH MAINTENANCE Final Result * (ABNORMAL) Lipid panel (02/21/2016) [facility] LDL/HDL Ratio 5(A) 0 - 4 Triglycerides 147 0 - 150 mg/dL Cholesterol 150 0 - 200 mg/dL HDL 32(A) >=40 mg/dL LDL Cholesterol 89 0 - 100 mg/dL Blood Venous blood specimen / Unknown Result [facility] Provider LAB BLOOD ORDERABLES [place] l Result from Last 3 Months or Most Recently Relevant to Health Maintenance Care Teams Assistant Store Manager Trainee Relationship Specialty Start Date End Date Tawanna Rodriguez MD [address] [place] [id number] PCP - General Internal Medicine 11/10/15
--- OUTSIDE RECORDS SUMMARY | 2025-07-15 09:26 | XMS_ITS | Encounter Summary ---
Author Organization [employer] Address [address] [place] [address] Care Team Providers Care Logistics Clerk Name Role Phone Name, Jean DO Primary Care Provider [phone] Reason for Visit * Reason Onset Date Comments Nurse Triage 03/17/2024 Encounter Details Date Type Department Care Team ([facility] st Contact Info) Description 03/17/2024 Telephone [facility] MEDICINE [address] [place] [address] Name, MD Jean [address] [place], [place] [id number] Nurse Triage Social History Tobacco Use Types [...] documented as of this encounter Care Teams Logistics Clerk Relationship Specialty Start Date End Date Name, MD Jean [address] [place] [address] PCP - General Family Medicine 04/28/20 documented as of this encounter
== END 2025-07-15 09:41 | disposition home or self-care (01) ==
PROVIDERS: PCP Internal Medicine Geriatric Medicine; Visit Provider Nurse Practitioner Family
DX: K64.9 Unspecified hemorrhoids (principal); R14.0 Abdominal distension (gaseous); K21.9 Gastro-esophageal reflux disease without esophagitis; R10.13 Epigastric pain; K59.01 Slow transit constipation
CPT/HCPCS: 99214

== ENCOUNTER → 2025-07-15 08:55 | Outpatient (BNVA) | payer MEDICAID, SELFPAY | PROVIDERS: PCP Internal Medicine Geriatric Medicine; Visit Provider Nurse Practitioner Family | DX: K59.01 Slow transit constipation (principal); R10.13 Epigastric pain; K21.9 Gastro-esophageal reflux disease without esophagitis; R14.0 Abdominal distension (gaseous); K64.9 Unspecified hemorrhoids | CPT/HCPCS: 99212 ==